=== PATIENT | male | born 1930 | race Caucasian/White ===

== ENCOUNTER 2016-11-22 20:44 | Emergency (ER) | payer BC ==
[~2016-11-22] VITALS: Ht 177.8 cm; Wt 83.5 kg
[~2016-11-22 20:44] MED LIST: ACET325T96 PO; CALCCHW17 PO; DUTA0.5C PO; LSN5 PO; LUTE20CA PO; MULTTAB PO; OMEGCAP2 PO; POTA20TA13 PO; ROPI0.25 PO; TPRSR/100 PO; ULT/50 PO; WARF5TAB90 PO; [UNRECOGNIZED DRUG - CODE] PO
[2016-11-22 20:49] VITALS: TEMP 36.9
[2016-11-22 21:12] VITALS: O2SAT 95
[2016-11-22 21:25] VITALS: Ht 177.8 cm; Wt 83.5 kg
[2016-11-22 21:41] LABS: BASO % 0.3 %; BASO ABS # 0.03 K/uL (0-0.2); COMPLETE YES; EOS % 0.5 %; HEMATOCRIT 37.6 % (42-52); IG% 0.2 %; LYMPH % 6.6 %; LYMPH ABS # 0.61 K/uL (1.2-3.4); MEAN CELL VOLUME 99.2 fL (80-100); MEAN CORPUSCULAR HGB CONC 33.2 g/dl (32-36); MEAN PLATELET VOLUME 8.2 fL (7.4-10.4); MONO % 5.9 %; NEUT % 86.5 %; PLATELET COUNT 199 K/uL (130-400); RED BLOOD COUNT 3.79 M/uL (4.7-6.1)
[2016-11-22 21:48] LABS: INR 2.4 (0.9-1.1); PARTIAL THROMBOPLASTIN RATIO 1.4; PROTHROMBIN TIME (PATIENT) 26.7 SECONDS (9.0-12.0)
[2016-11-22 21:52] LABS: VEN BLD GAS O2 SATURATION 72.6 %; VEN BLOOD GAS BASE EXCESS 4.5 mmol/L; VENOUS BLOOD GAS PCO2 42 mmHg (38.0-50.0); VENOUS BLOOD GAS PO2 39 mmHg
[2016-11-22 21:57] LABS: BUN/CREATININE RATIO 13.5 (10-20); CALCIUM 8.8 mg/dl (8.5-10.1); CREATININE 1.6 mg/dl (0.60-1.40); POTASSIUM 3.9 mmol/L (3.5-5.1)
--- NOTE | 2016-11-22 21:57 | DIAGNOSTIC IMAGING REPORT ---
CHEST ONE VIEW PORTABLE CLINICAL HISTORY: Respiratory distress. Dyspnea. COMPARISON STUDY: Chest radiograph August 31, 2015 [place] FINDINGS: A left shoulder arthroplasty is incidentally noted. Moderate cardiomegaly is unchanged. There are healed bilateral rib deformities. There is no evidence of pulmonary edema. There is no consolidation to suggest pneumonia. The appearance of the chest is unchanged. IMPRESSION: 1. No acute findings. 2. Moderate cardiomegaly. No evidence of pulmonary edema. Electronically signed by: Dave Starr M.D. 11/22/2016 9:55 PM Dictated Date/Time: 11/22/2016 9:51 PM
--- NOTE | 2016-11-22 22:05 | DIAGNOSTIC IMAGING REPORT ---
CT OF THE HEAD WITHOUT CONTRAST CLINICAL HISTORY: Head trauma. Altered mental status. COMPARISON STUDY: Head CT July 21, 2014. CT DOSE: 614.27 mGy.cm TECHNIQUE: Helical axial images of the head were obtained without IV contrast. Automated exposure control was utilized for the study. FINDINGS: There is a small hyperdense subdural hematoma along the right aspect of the tentorium. This hematoma measures approximately 1 cm in thickness. There is no significant associated mass effect. The ventricular system is stable. The basilar cisterns are patent. No additional extra-axial collections are present. White matter hypodensity suggests small vessel disease. There are no findings to suggest acute dural sinus thrombosis or acute territorial infarct. There is no calvarial fracture. IMPRESSION: 1. Small acute subdural hematoma along the right aspect of the tentorium. A follow-up head CT in approximately 24 hours is recommended. 2. No calvarial fracture. Electronically signed by: Dave Starr M.D. 11/22/2016 10:04 PM Dictated Date/Time: 11/22/2016 9:58 PM
[2016-11-22] MEDS ORDERED: PROTHROMBIN COMP KCENTRA IV STA (22:12)
[2016-11-22] MEDS ORDERED: PHYTONADIONE INJ 10 MG in SODIUM CHLORIDE 0.9% 50ML 50 ML IV SCH (22:15)
[2016-11-22] MEDS ORDERED: PHYTONADIONE INJ 10 MG in SODIUM CHLORIDE 0.9% 50ML 50 ML IV ONE (22:15)
[2016-11-22] MEDS ORDERED: POTA20TA16 PO (22:29)
[2016-11-22] MEDS ORDERED: ROPI4TAB4 PO (22:29)
[2016-11-22] MEDS ORDERED: DOXY100C2 PO (22:29)
[2016-11-22] MEDS ORDERED: LSX40 PO (22:29)
[2016-11-22] MEDS ORDERED: PROTHROMBIN COMP CONC- KCENTRA 2,000 UNIT in SYRINGE 0 ML IV SCH (22:30)
--- NOTE | 2016-11-22 22:49 | DIAGNOSTIC IMAGING REPORT ---
CT OF THE CERVICAL SPINE WITHOUT CONTRAST CLINICAL HISTORY: Fall. COMPARISON STUDY: No previous studies for comparison. TECHNIQUE: Helical axial images of the cervical spine were obtained without IV contrast. Sagittal and coronal reconstructions were viewed. FINDINGS: A small acute subdural hematoma layering along the right aspect of the tentorium is better depicted on the head CT. There is mild leftward curvature of the cervical spine. Craniocervical junction is intact. No acute fracture is identified. There is moderate multilevel degenerative disc disease and facet arthrosis of the cervical spine. There is no prevertebral edema. This study is mildly compromised by motion artifact. IMPRESSION: 1. No acute cervical spine fracture or subluxation. 2. Small acute subdural hematoma layering along the right aspect of the tentorium which is better depicted on head CT. Electronically signed by: Dave Starr M.D. 11/22/2016 10:47 PM Dictated Date/Time: 11/22/2016 10:44 PM
[2016-11-22 23:03] LABS: MANUAL MICROSCOPIC REQUIRED? YES; URINE APPEARANCE CLEAR (CLEAR); URINE COLOR YELLOW; URINE NITRITE NEG (NEG); URINE PH 5.5 (4.5-7.5); URINE SPECIFIC GRAVITY >= 1.030 (1.000-1.030); UROBILINOGEN NEG (NEG)
[2016-11-22 23:04] LABS: REVIEW REQ? NO; URINE BILIRUBIN NEG (NEG)
[2016-11-22 23:10] LABS: URINE BACTERIA NEG (NEG); URINE MUCUS PRESENT (NONE PRSENT); URINE RBC 0-4 /hpf (0-4); URINE WBC 0 /hpf (0-5)
[2016-11-22 23:17] VITALS: BP 160/88; PULSE 79; O2SAT 96
--- NOTE | 2016-11-23 00:26 | EMERGENCY ROOM VISIT NOTE ---
History Report prepared by Rafa: Ruben Barrientos Under the Supervision of: Dr. Abdulaziz Jha D.O. First contact with patient: 21:11 Chief Complaint: WEAKNESS Stated Complaint: WEAKNESS,EDEMA History of Present Illness The patient is an 86 year old male who presents to the Emergency Room with complaints of a sudden fall beginning just prior to arrival. He states he was standing and fell forward onto his knees. The patient denies hitting his head during the fall. The patient associates weakness and dizziness with today's symptoms. He notes the weakness and dizziness have been occurring for the past several days. The patient states he fell out of his bed three days ago and hit his head on dry wall. As per friend, the patient has been worsening over the past four days with dizziness and confusion. The patient notes he has a history of atrial fibrillation and CHF. He states he takes 5.5 mg Coumadin a day. Pt denies LOC, weakness or numbness in arms or legs, headache, change in vision, fevers, chest pain, shortness of breath, nausea, vomiting, diarrhea, and pain with urination.. Source of History: patient Onset: just prior to arrival Position: other (global) Quality: other (fall) Timing: other (sudden) Associated Symptoms: + weakness Note: Associated symptoms: dizziness. Review of Systems See HPI for pertinent positives & negatives. A total of 10 systems reviewed and were otherwise negative. Past Medical & Surgical Medical Problems: (1) Atrial fibrillation (2) Reflux (3) Restless leg syndrome Family History Patient reports no known family medical history. Social History Smoking Status: Never Smoker Alcohol Use: none Drug Use: none Marital Status: Housing Status: lives alone Occupation Status: retired Current/Historical Medications Scheduled Doxycycline Hyclate (Vibramycin), 1 CAP PO BID Dutasteride (Avodart), 1 CAP PO DAILY Lisinopril (Lisinopril), 1 TAB PO DAILY Metoprolol Succinate (Metoprolol Succinate ER), 100 MG PO DAILY Multivitamins/Minerals (Mvi With Minerals), 1 TAB PO DAILY Ropinirole Hydrochloride (Requip), 1 TAB PO HS Warfarin Sodium (Coumadin), 5 MG PO DAILY Scheduled PRN Acetaminophen Tab (Tylenol), 650 MG PO Q6 PRN Furosemide (Furosemide), 1 TAB PO 3XWK PRN for SWELLING Potassium Ext Rel (Klor-Con), 1 TAB PO 3XWK PRN for WHEN TAKING LASIX Tramadol Hcl (Ultram), 100 MG PO QID PRN for Pain Allergies Coded Allergies: Celecoxib (Verified Allergy, Unknown, 11/22/16) Cephalexin (Verified Adverse Reaction, Intermediate, DYSPEPSIA, 11/22/16) Esomeprazole (Verified Adverse Reaction, Intermediate, GI SYMPTOMS, ) NSAIDs (Verified Adverse Reaction, Intermediate, esaphogeal lesions, ) Naproxen (Verified Adverse Reaction, Intermediate, DYSPEPSIA, 11/22/16) Sulfamethoxazole w/Trimethoprim (Verified Adverse Reaction, Intermediate, DYSPEPSIA, 11/22/16) Cephalosporins (Verified Adverse Reaction, Mild, NAUSEA, 11/22/16) Physical Exam Vital Signs Date Time Temp Pulse Resp B/P Pulse Ox O2 Delivery O2 Flow Rate FiO2 11/22/16 23:17 79 18 160/88 96 Nasal Cannula 2.0 11/22/16 22:48 101 20 151/103 96 Nasal Cannula 2.0 11/22/16 22:28 89 25 159/86 98 Nasal Cannula 11/22/16 21:41 83 11/22/16 21:12 82 Room Air 11/22/16 21:12 95 Nasal Cannula 2.0 11/22/16 21:07 91 Room Air 11/22/16 20:49 36.9 73 16 149/81 94 Room Air Physical Exam GENERAL: sitting up in bed, disheveled, no acute distress, non-toxic HEAD: normal cephalic, atraumatic EYE EXAM: normal conjunctiva, PERRL and EOM's grossly intact OROPHARYNX: no exudate, no erythema, lips, buccal mucosa, and tongue normal and mucous membranes are moist EARS: TMs clear b/l NECK: supple, no nuchal rigidity, no adenopathy, non-tender CHEST: stable to compression anteriorly and posteriorly LUNGS: clear to auscultation. Normal chest wall mechanics HEART: no murmurs, S1 normal and S2 normal ABDOMEN: abdomen soft, non-tender, normo-active bowel sounds, no masses, no rebound or guarding. PELVIS: stable to compression anteriorly and posteriorly BACK: Back is symmetrical on inspection and there is no deformity, no midline tenderness, no CVA tenderness. UPPER EXTREMITIES: full active and passive range of motion of all joints without tenderness to palpation LOWER EXTREMITIES: Abrasion over left knee. Bilateral pitting edema tracking up to thighs. Full active and passive range of motion of all joints without tenderness to palpation NEURO EXAM: Sitting up in bed. Oriented to person, place, and year. Cranial nerves II-XII intact. No weakness of upper or lower extremities. Difficult to perform drift with right shoulder issues. Rapid alternating movement of upper extremities intact. Medical Decision & Procedures ER Provider Diagnostic Interpretation: Xray results per the radiologist and my interpretation. Other results have been interpreted by the radiologist and reviewed by me. CHEST ONE VIEW PORTABLE CLINICAL HISTORY: Respiratory distress. Dyspnea. COMPARISON STUDY: Chest radiograph August 31, 2015 [place] FINDINGS: A left shoulder arthroplasty is incidentally noted. Moderate cardiomegaly is unchanged. There are healed bilateral rib deformities. There is no evidence of pulmonary edema. There is no consolidation to suggest pneumonia. The appearance of the chest is unchanged. IMPRESSION: 1. No acute findings. 2. Moderate cardiomegaly. No evidence of pulmonary edema. Electronically signed by: Dave Starr M.D. 11/22/2016 9:[address] OF THE HEAD WITHOUT CONTRAST CLINICAL HISTORY: Head trauma. Altered mental status. COMPARISON STUDY: Head CT July 21, 2014. CT DOSE: 614.27 mGy.cm TECHNIQUE: Helical axial images of the head were obtained without IV contrast. Automated exposure control was utilized for the study. FINDINGS: There is a small hyperdense subdural hematoma along the right aspect of the tentorium. This hematoma measures approximately 1 cm in thickness. There is no significant associated mass effect. The ventricular system is stable. The basilar cisterns are patent. No additional extra-axial collections are present. White matter hypodensity suggests small vessel disease. There are no findings to suggest acute dural sinus thrombosis or acute territorial infarct. There is no calvarial fracture. IMPRESSION: 1. Small acute subdural hematoma along the right aspect of the tentorium. A follow-up head CT in approximately 24 hours is recommended. 2. No calvarial fracture. Electronically signed by: Dave Starr M.D. 11/22/2016 10:[address] OF THE CERVICAL SPINE WITHOUT CONTRAST CLINICAL HISTORY: Fall. COMPARISON STUDY: No previous studies for comparison. TECHNIQUE: Helical axial images of the cervical spine were obtained without IV contrast. Sagittal and coronal reconstructions were viewed. FINDINGS: A small acute subdural hematoma layering along the right aspect of the tentorium is better depicted on the head CT. There is mild leftward curvature of the cervical spine. Craniocervical junction is intact. No acute fracture is identified. There is moderate multilevel degenerative disc disease and facet arthrosis of the cervical spine. There is no prevertebral edema. This study is mildly compromised by motion artifact. IMPRESSION: 1. No acute cervical spine fracture or subluxation. 2. Small acute subdural hematoma layering along the right aspect of the tentorium which is better depicted on head CT. Electronically signed by: Dave Starr M.D. 11/22/2016 10:47 PM Laboratory Results 11/22/16 21:10 Red Blood Count 3.79, Mean Corpuscular Volume 99.2, Mean Corpuscular Hemoglobin 33.0, Mean Corpuscular Hemoglobin Concent 33.2, Mean Platelet Volume 8.2, Neutrophils (%) (Auto) 86.5, Lymphocytes (%) (Auto) 6.6, Monocytes (%) (Auto) 5.9, Eosinophils (%) (Auto) 0.5, Basophils (%) (Auto) 0.3, Neutrophils # (Auto) 7.95, Lymphocytes # (Auto) 0.61, Monocytes # (Auto) 0.54, Eosinophils # (Auto) 0.05, Basophils # (Auto) 0.03 11/22/16 21:10 Test 11/22/16 21:10 11/22/16 21:42 11/22/16 22:45 White Blood Count 9.20 K/uL (4.8-10.8) Red Blood Count 3.79 M/uL (4.7-6.1) Hemoglobin 12.5 g/dL (14.0-18.0) Hematocrit 37.6 % (42-52) Mean Corpuscular Volume 99.2 fL (80-100) Mean Corpuscular Hemoglobin 33.0 pg (25-34) Mean Corpuscular Hemoglobin Concent 33.2 g/dl (32-36) Platelet Count 199 K/uL (130-400) Mean Platelet Volume 8.2 fL (7.4-10.4) Neutrophils (%) (Auto) 86.5 % Lymphocytes (%) (Auto) 6.6 % Monocytes (%) (Auto) 5.9 % Eosinophils (%) (Auto) 0.5 % Basophils (%) (Auto) 0.3 % Neutrophils # (Auto) 7.95 K/uL (1.4-6.5) Lymphocytes # (Auto) 0.61 K/uL (1.2-3.4) Monocytes # (Auto) 0.54 K/uL (0.11-0.59) Eosinophils # (Auto) 0.05 K/uL (0-0.5) Basophils # (Auto) 0.03 K/uL (0-0.2) RDW Standard Deviation 55.1 fL (36.4-46.3) RDW Coefficient of Variation 15.1 % (11.5-14.5) Immature Granulocyte % (Auto) 0.2 % Immature Granulocyte # (Auto) 0.02 K/uL (0.00-0.02) Prothrombin Time 26.7 SECONDS (9.0-12.0) Prothromb Time International Ratio 2.4 (0.9-1.1) Activated Partial Thromboplast Time 35.3 SECONDS (21.0-31.0) Partial Thromboplastin Ratio 1.4 Anion Gap 11.0 mmol/L (3-11) Est Creatinine Clear Calc Drug Dose 33.6 ml/min Estimated GFR () 44.2 Estimated GFR (Non- 38.2 BUN/Creatinine Ratio 13.5 (10-20) Calcium Level 8.8 mg/dl (8.5-10.1) Total Bilirubin 1.4 mg/dl (0.2-1) Aspartate Amino Transf (AST/SGOT) 83 U/L (15-37) Alanine Aminotransferase (ALT/SGPT) 53 U/L (12-78) Alkaline Phosphatase 88 U/L (45-117) Troponin I 0.089 ng/ml (0-0.045) Pro-B-Type Natriuretic Peptide 6435 pg/ml (0-1800) Total Protein 7.2 gm/dl (6.4-8.2) Albumin 3.6 gm/dl (3.4-5.0) Globulin 3.6 gm/dl (2.5-4.0) Albumin/Globulin Ratio 1.0 (0.9-2) Venous Blood pH 7.45 (7.36-7.41) Venous Blood Partial Pressure CO2 42 mmHg (38.0-50.0) Venous Blood Partial Pressure O2 39 mmHg Venous Blood HCO3 29 meq/L Venous Blood Oxygen Saturation 72.6 % Venous Blood Base Excess 4.5 mmol/L Urine Color YELLOW Urine Appearance CLEAR (CLEAR) Urine pH 5.5 (4.5-7.5) Urine Specific [place] >= 1.030 (1.000-1.030) Urine Protein TRACE (NEG) Urine Glucose (UA) NEG (NEG) Urine Ketones TRACE (NEG) Urine Occult Blood 1+ (NEG) Urine Nitrite NEG (NEG) Urine Bilirubin NEG (NEG) Urine Urobilinogen NEG (NEG) Urine Leukocyte Esterase NEG (NEG) Urine RBC 0-4 /hpf (0-4) Urine WBC 0 /hpf (0-5) Urine Epithelial Cells 0-5 /lpf (0-5) Urine Bacteria NEG (NEG) Urine Mucus PRESENT (NONE PRSENT) Laboratory results per my review. Medications Administered Medications (Trade) Dose Ordered Sig/Nina Route Start Time Stop Time Status Last Admin Dose Admin Prothrombin Complex Concent (Human) 2000 unit/ Syringe 80 ml @ 10 mls/min TODAY@0 IV 11/22/16 22:30 11/22/16 23:00 DC 11/22/16 22:27 10 MLS/MIN Phytonadione/ Sodium Chloride (Aqua-[place]phy[place] Inj/Nss 50ml) 51 ml @ 102 mls/hr TODAY@2215 IV 11/22/16 22:15 11/22/16 22:44 DC 11/22/16 22:27 102 MLS/HR ECG Indication: weakness Rate (beats per minute): 78 Rhythm: atrial fibrillation Findings: Q waves (Septal, Inferior), left axis deviation ED Course ED COURSE: Vital signs were reviewed and showed normal vitals. The patients medical record was reviewed The above diagnostic studies were performed and reviewed. ED treatments and interventions as stated above. 2113: The patient was evaluated in room C4. A complete history and physical examination was performed. 2209: Reevaluated the patient at this time and explained the risks and benefits of reversal INR to the patient and his friend. They agree with the treatment plan. The patient preferred to be transferred to [facility]. He declines [facility] and [facility]. 2214: Ordered Phytonadione 10 mg/Sodium Chloride 51 ml @ 102 mls/hr Protocol IV. 2230: Ordered Prothrombin Complex Concent (Human) 2,000 unit/Syringe 80 ml @ 10 mls/min Protocol IV. It is noted the patient states he is a full code. 2240: I spoke to Dr. Kasper, [facility] (Trauma Surgeon) about the patient's case, and he will accept the patient for transfer. It is noted [facility] declined flight. 224: Upon reevaluation, the patient agreed to the treatment plan.I discussed my findings with the patient and he understands and agrees with the treatment plan. Based on the patients age, coexisting illnesses, exam and lab findings the decision to treat as a transfer was made. The patient remained stable while under my care. The patient appeared well at the time of discharge. The patient will be evaluated for further management at [facility]. 2307: EMS arrived and is transporting the patient to [facility]. Medical Decision Differential diagnoses include major intracranial, cervical, spinal, thoracic, abdominal, pelvic and neurologic injury. Fracture, contusion, sprain, strain, laceration, abrasions included as well. Patient is an 86-year-old male who presents the ER for falls associated with confusion. He fell on Wednesday and then fell again today. He denies hitting his head. He does take Coumadin for A. fib. Patient is a alert and oriented but difficult to obtain a complete history. CBC was unremarkable. BMP shows a creatinine 1.6. Troponin was elevated at 109. BNP was elevated. He does have diffuse pitting edema in the lower extremities. INR was elevated at 2.4. CT head and cervical spine show a subdural without shift. Discussed with pharmacy and he was given K [place] and IV vitamin K to immediately reverse his Coumadin following discussing with the patient the risk and benefits. I also discussed this with his friend at bedside who agreed as well. I then discussed with the trauma surgery at [place]. Attempted stress for via helicopter but due to weather was unsuccessful. He is transferred via ground shortly later. Patient remained stable while in the ER. Chest x-ray was unremarkable. Patient was transferred with acute subdural bleed on Coumadin with an INR 2.4 following receiving IV vitamin K and kcentra/four factor. EKG was nonischemic. I do favor this likely elevated troponin is likely from his worsening heart failure or the stress from the I[facility]. Consults Time Called: 2204 Consulting Physician: Dr. Kasper [facility] (Trauma Surgeon) Returned Call: [address] Kasper [facility] (Trauma Surgeon) about the patient's case, and he will accept the patient for transfer. Impression Primary Impression: Acute subdural hematoma Additional Impression: Supratherapeutic INR Critical Care I have personally spent 80 minutes of critical care time in the direct management of this patient. This includes bedside care, interpretation of diagnostic studies, and testing, discussion with consultants, patient, and family members, and other required patient management activities. This 80 minutes is in excess of all separately billable procedures. Scribe Attestation The scribe's documentation has been prepared under my direction and personally reviewed by me in its entirety. I confirm that the note above accurately reflects all work, treatment, procedures, and medical decision making performed by me. Departure Information Dispostion Transfer Acute Care Facility (Dr. Kasper [facility] (Trauma Surgeon)) Referrals Giuseppe Santamaria M.D. (PCP) Problem Qualifiers
[2017-03-09] MEDS ORDERED: LEVE250T PO (09:52)
== END 2016-11-22 23:21 | disposition short-term general hospital (02) ==
LOC: C.EDB 20:46 → C.EDC 23:21
DX: S06.5X0A Traumatic subdural hemorrhage without loss of consciousness, initial encounter (principal); R79.1 Abnormal coagulation profile; W19.XXXA Unspecified fall, initial encounter; I48.91 Unspecified atrial fibrillation; K21.9 Gastro-esophageal reflux disease without esophagitis; Z79.01 Long term (current) use of anticoagulants

== ENCOUNTER → 2016-12-28 | Outpatient (CLI) | payer BC ==
[~2016-12-28] MED LIST changes: -CALCCHW17 PO; +DOXY100C2 PO; +LEVE250T PO; +LSX40 PO; -LUTE20CA PO; -OMEGCAP2 PO; -POTA20TA13 PO; +POTA20TA16 PO; -ROPI0.25 PO; +ROPI4TAB4 PO; -[UNRECOGNIZED DRUG - CODE] PO
[2016-12-28 09:16] LABS: PROTHROMBIN TIME (PATIENT) 10.7 SECONDS (9.0-12.0)
== END ==
LOC: C.LABFOXAC 07:53
PROVIDERS: ATTEND Internal Medicine
DX: I48.0 Paroxysmal atrial fibrillation (principal)

== ENCOUNTER → 2016-12-31 | Outpatient (CLI) | payer BC ==
[2016-12-31 09:00] LABS: INR 1.3 (0.9-1.1); PROTHROMBIN TIME (PATIENT) 13.9 SECONDS (9.0-12.0)
== END ==
LOC: C.LABFOXAC 08:40
PROVIDERS: ATTEND Internal Medicine
DX: I48.0 Paroxysmal atrial fibrillation (principal)

== ENCOUNTER → 2017-01-07 | Outpatient (CLI) | payer BC ==
[2017-01-07 10:35] LABS: INR 3.2 (0.9-1.1); PROTHROMBIN TIME (PATIENT) 36.1 SECONDS (9.0-12.0)
== END ==
LOC: C.LABFOXAC 08:41
PROVIDERS: ATTEND Internal Medicine
DX: I48.0 Paroxysmal atrial fibrillation (principal)

== ENCOUNTER → 2017-01-11 | Outpatient (CLI) | payer BC ==
[2017-01-11 08:38] LABS: PROTHROMBIN TIME (PATIENT) 21.8 SECONDS (9.0-12.0)
== END ==
LOC: C.LABFOXAC 08:05
PROVIDERS: ATTEND Nurse Practitioner Family
DX: I48.0 Paroxysmal atrial fibrillation (principal)

== ENCOUNTER → 2017-01-13 | Outpatient (CLI) | payer BC ==
[2017-01-13 09:33] LABS: INR 1.8 (0.9-1.1); PROTHROMBIN TIME (PATIENT) 19.3 SECONDS (9.0-12.0)
== END | disposition home or self-care (01) ==
LOC: C.LABFOXDH 08:42
PROVIDERS: ATTEND Internal Medicine
DX: I48.91 Unspecified atrial fibrillation (principal)

== ENCOUNTER → 2017-01-20 | Outpatient (CLI) | payer BC ==
[2017-01-20 09:37] LABS: PROTHROMBIN TIME (PATIENT) 21.8 SECONDS (9.0-12.0)
== END | disposition home or self-care (01) ==
LOC: C.LABFOXDH 09:09
PROVIDERS: ATTEND Internal Medicine
DX: I48.91 Unspecified atrial fibrillation (principal)

== ENCOUNTER → 2017-02-03 | Outpatient (CLI) | payer BC ==
[2017-02-03 10:15] LABS: PROTHROMBIN TIME (PATIENT) 22.4 SECONDS (9.0-12.0)
== END | disposition home or self-care (01) ==
LOC: C.LABFOXDH 08:53
PROVIDERS: ATTEND Nurse Practitioner Family
DX: I48.91 Unspecified atrial fibrillation (principal)

== ENCOUNTER → 2017-02-17 | Outpatient (CLI) | payer BC ==
[2017-02-17 09:39] LABS: INR 2.3 (0.9-1.1); PROTHROMBIN TIME (PATIENT) 25.4 SECONDS (9.0-12.0)
== END | disposition home or self-care (01) ==
LOC: C.LABFOXDH 09:21
PROVIDERS: ATTEND Internal Medicine
DX: I48.91 Unspecified atrial fibrillation (principal)

== ENCOUNTER → 2017-03-10 | Outpatient (CLI) | payer BC ==
[~2017-03-10] MED LIST changes: -DUTA0.5C PO; -LEVE250T PO; -LSX40 PO; -ROPI4TAB4 PO
--- NOTE | 2017-03-10 11:55 | DIAGNOSTIC IMAGING REPORT ---
CT LUMBAR SPINE WITHOUT CT DOSE: 944.35 mGy.cm CLINICAL HISTORY: Lumbar spine pain. TECHNIQUE: Axial images of the lumbar spine were obtained without IV contrast. Sagittal and coronal reconstructions were viewed COMPARISON STUDY: Lumbar spine radiographs April 21, 2013. FINDINGS: For purposes of numbering on this exam, the L5-S1 disc space is assigned to axial image 303 of 356. Alignment of lumbar spine is anatomic. There is a moderate to severe L3 compression fracture with 60% loss of vertebral body height. This is new since exam of April 21, 2013. There is also a moderate compression fracture of the superior endplate of L2 with 50% loss of vertebral body height centrally. Vertebral body height loss has slightly increased since prior exam. A bilobed abdominal aortic aneurysm is partially imaged on this exam. Allowing for differences in technique, this is likely only minimally increased in size since ultrasound of November 25, 2015. The largest component measures 4.7 cm. Is minimal prevertebral infiltration at the L2-L3 level. The central canal and neural foramen are suboptimally assessed by CT technique. Discussed by complex at the L2-L3 level is noted as well as facet arthrosis and ligamentous hypertrophy. There is at least moderate central canal stenosis at this level. IMPRESSION: 1. Old L2 compression fracture with interval increase in vertebral body height loss since exam of April 21, 2013. Interval development of a moderate L3 compression fracture which is age-indeterminate but likely subacute to chronic. 2. Disc osteophyte complex at the L2-L3 level with ligamentous hypertrophy and facet arthrosis. Central canal is suboptimally assessed by CT technique but at least moderate central canal stenosis at this level. 3. At most minimal increase in size of a bilobed infrarenal abdominal aortic aneurysm that measures up to 4.7 cm, since ultrasound of November 25, 2015. Electronically signed by: Dave Starr M.D. 03/10/2017 11:54 AM Dictated Date/Time: 03/10/2017 11:40 AM
== END | disposition home or self-care (01) ==
LOC: C.CTS 10:32
PROVIDERS: ATTEND Internal Medicine
DX: M54.5 Low back pain (principal); M25.78 Osteophyte, vertebrae; M48.56XD Collapsed vertebra, not elsewhere classified, lumbar region, subsequent encounter for fracture with routine healing; I48.91 Unspecified atrial fibrillation

== ENCOUNTER → 2017-03-10 | Outpatient (CLI) | payer BC ==
[2017-03-10 09:15] LABS: INR 1.7 (0.9-1.1)
== END ==
LOC: C.LABFOXDH 08:32
PROVIDERS: ATTEND Internal Medicine
DX: I48.91 Unspecified atrial fibrillation (principal)

== ENCOUNTER → 2017-03-17 | Outpatient (CLI) | payer BC ==
[2017-03-17 08:41] LABS: INR 1.7 (0.9-1.1); PROTHROMBIN TIME (PATIENT) 18.7 SECONDS (9.0-12.0)
== END | disposition home or self-care (01) ==
LOC: C.LABFOXDH 08:03
PROVIDERS: ATTEND Internal Medicine
DX: I48.91 Unspecified atrial fibrillation (principal)

== ENCOUNTER → 2017-03-24 | Outpatient (CLI) | payer BC ==
[2017-03-24 10:28] LABS: INR 2.1 (0.9-1.1); PROTHROMBIN TIME (PATIENT) 23.7 SECONDS (9.0-12.0)
== END | disposition home or self-care (01) ==
LOC: C.LABFOXDH 08:58
PROVIDERS: ATTEND Internal Medicine
DX: I48.91 Unspecified atrial fibrillation (principal)

== ENCOUNTER → 2017-03-31 | Outpatient (CLI) | payer BC ==
[2017-03-31 10:00] LABS: INR 2.6 (0.9-1.1); PROTHROMBIN TIME (PATIENT) 29.2 SECONDS (9.0-12.0)
== END | disposition home or self-care (01) ==
LOC: C.LABFOXDH 09:00
PROVIDERS: ATTEND Internal Medicine
DX: I48.91 Unspecified atrial fibrillation (principal)

== ENCOUNTER → 2017-04-06 | Outpatient (CLI) | payer BC | END | disposition home or self-care (01) | LOC: C.MAMM 13:44 | PROVIDERS: ATTEND Internal Medicine | DX: M85.80 Other specified disorders of bone density and structure, unspecified site (principal) ==

== ENCOUNTER → 2017-04-07 | Outpatient (CLI) | payer BC ==
[2017-04-07 11:01] LABS: BLOOD UREA NITROGEN 25 mg/dl (7-18); BUN/CREATININE RATIO 19.1 (10-20); CALCIUM 8.6 mg/dl (8.5-10.1); CARBON DIOXIDE 29 mmol/L (21-32); CHLORIDE 108 mmol/L (98-107); GLUCOSE 87 mg/dl (70-99); POTASSIUM 4.7 mmol/L (3.5-5.1); SODIUM 141 mmol/L (136-145)
== END | disposition home or self-care (01) ==
LOC: C.LABFOXDH 09:13
PROVIDERS: ATTEND Nurse Practitioner Family
DX: I48.91 Unspecified atrial fibrillation (principal)

== ENCOUNTER → 2017-04-14 | Outpatient (CLI) | payer BC ==
[~2017-04-14] MED LIST changes: -DOXY100C2 PO
[2017-04-14 09:52] LABS: INR 2.8 (0.9-1.1); PROTHROMBIN TIME (PATIENT) 30.8 SECONDS (9.0-12.0)
== END | disposition home or self-care (01) ==
LOC: C.LABFOXMH 05:11
PROVIDERS: ATTEND Urology
DX: I48.91 Unspecified atrial fibrillation (principal)

== ENCOUNTER → 2017-04-26 | Outpatient (CLI) | payer BC ==
--- NOTE | 2017-05-12 09:00 | CODING QUERY MEDICAL NECESSITY ---
SUPPORTING DIAGNOSIS NEEDED Dr. Byrd, A supporting diagnosis is required for the test/procedure performed on this patient in order for us to be reimbursed by the patient's insurance. Please provide a supporting diagnosis for the following test/procedure listed below next to the test name along with your signature. *If there is no additional diagnosis for this patient that would support the following test/procedure please document that below next to the test/procedure. Test(s)/Procedure(s) that require a supporting diagnosis: * ([id number]) B12 VITAMIN LEVEL DIAGNOSIS: DATE OF SERVICE: 04/26/17 Provider Signature: Date: Thank you Herbie Wheatley [facility] Information Management Once completed, please kindly fax back to [phone] For questions please call [phone]
== END | disposition home or self-care (01) ==
LOC: C.LABFOXDH 09:18
PROVIDERS: ATTEND Internal Medicine
DX: G62.9 Polyneuropathy, unspecified (principal); R53.83 Other fatigue

== ENCOUNTER → 2017-04-28 | Outpatient (CLI) | payer BC ==
[2017-04-28 09:05] LABS: INR 1.3 (0.9-1.1); PROTHROMBIN TIME (PATIENT) 13.5 SECONDS (9.0-12.0)
== END | disposition home or self-care (01) ==
LOC: C.LABFOXDH 08:32
PROVIDERS: ATTEND Internal Medicine
DX: I48.91 Unspecified atrial fibrillation (principal)

== ENCOUNTER → 2017-05-05 | Outpatient (CLI) | payer BC ==
[2017-05-05 09:50] LABS: INR 1.8 (0.9-1.1); PROTHROMBIN TIME (PATIENT) 19.4 SECONDS (9.0-12.0)
== END | disposition home or self-care (01) ==
LOC: C.LABFOXDH 08:57
PROVIDERS: ATTEND Nurse Practitioner Family
DX: I48.91 Unspecified atrial fibrillation (principal)

== ENCOUNTER → 2017-05-12 | Outpatient (CLI) | payer BC ==
[2017-05-12 08:58] LABS: INR 2.9 (0.9-1.1); PROTHROMBIN TIME (PATIENT) 32.4 SECONDS (9.0-12.0)
== END | disposition home or self-care (01) ==
LOC: C.LABFOXDH 08:23
PROVIDERS: ATTEND Internal Medicine
DX: I48.2 Chronic atrial fibrillation (principal)

== ENCOUNTER → 2017-05-26 | Outpatient (CLI) | payer BC ==
[2017-05-26 08:37] LABS: INR 1.2 (0.9-1.1); PROTHROMBIN TIME (PATIENT) 12.8 SECONDS (9.0-12.0)
== END | disposition home or self-care (01) ==
LOC: C.LABFOXDH 08:14
PROVIDERS: ATTEND Anesthesiology
DX: I48.91 Unspecified atrial fibrillation (principal)

== ENCOUNTER → 2017-06-07 | Outpatient (CLI) | payer BC ==
[2017-06-07 08:40] LABS: INR 2.1 (0.9-1.1); PROTHROMBIN TIME (PATIENT) 23.1 SECONDS (9.0-12.0)
== END | disposition home or self-care (01) ==
LOC: C.LABFOXDH 08:21
PROVIDERS: ATTEND Nurse Practitioner Family
DX: I48.2 Chronic atrial fibrillation (principal)

== ENCOUNTER → 2017-06-17 | Outpatient (CLI) | payer BC ==
[2017-06-17 09:58] LABS: HEMATOCRIT 42.2 % (42-52); MEAN CELL VOLUME 99.1 fL (80-100); MEAN CORPUSCULAR HEMOGLOBIN 31.2 pg (25-34); MEAN CORPUSCULAR HGB CONC 31.5 g/dl (32-36); PLATELET COUNT 207 K/uL (130-400); RED BLOOD COUNT 4.26 M/uL (4.7-6.1); WHITE BLOOD COUNT 9.68 K/uL (4.8-10.8)
[2017-06-17 10:21] LABS: BLOOD UREA NITROGEN 28 mg/dl (7-18); BUN/CREATININE RATIO 20.3 (10-20); CALCIUM 8.9 mg/dl (8.5-10.1); CARBON DIOXIDE 28 mmol/L (21-32); CHLORIDE 106 mmol/L (98-107); GLUCOSE 94 mg/dl (70-99); MAGNESIUM 2.2 mg/dl (1.8-2.4); POTASSIUM 5.1 mmol/L (3.5-5.1); SODIUM 138 mmol/L (136-145)
== END | disposition home or self-care (01) ==
LOC: C.LABFOXDH 09:38
PROVIDERS: ATTEND Internal Medicine
DX: G25.81 Restless legs syndrome (principal)

== ENCOUNTER → 2017-06-21 | Outpatient (CLI) | payer BC ==
[2017-06-21 09:05] LABS: PROTHROMBIN TIME (PATIENT) 41.6 SECONDS (9.0-12.0)
[2017-06-21 09:07] LABS: INR 3.7 (0.9-1.1)
== END | disposition home or self-care (01) ==
LOC: C.LABFOXDH 08:33
PROVIDERS: ATTEND Internal Medicine
DX: I48.91 Unspecified atrial fibrillation (principal)

== ENCOUNTER → 2017-07-02 | Outpatient (CLI) | payer BC ==
--- NOTE | 2017-07-02 12:07 | DIAGNOSTIC IMAGING REPORT ---
AORTIC ANEURYSM RETROPERINEAL CLINICAL HISTORY: I71.4 Aneurysm of abdominal [id number] COMPARISON STUDY: 11/25/2015 FINDINGS: The proximal aorta measures 22 x 22 mm. The mid aorta measures 33 x 32 mm. The distal aorta measures 45 x 40 mm. The right iliac artery measures 14 mm. The left iliac artery measures 14 mm. 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 The maximal aortic diameter is 4.5 cm. This remains unchanged from the prior November 2015 study Electronically signed by: Dalton Barcenas M.D. 07/02/2017 12:06 PM Dictated Date/Time: 07/02/2017 12:00 PM
== END | disposition home or self-care (01) ==
LOC: C.ULTRBC 11:12
PROVIDERS: ATTEND Internal Medicine
DX: I71.4 Abdominal aortic aneurysm, without rupture (principal)

== ENCOUNTER → 2017-07-05 | Outpatient (CLI) | payer BC ==
[2017-07-05 12:40] LABS: PROTHROMBIN TIME (PATIENT) 42.5 SECONDS (9.0-12.0)
[2017-07-05 12:51] LABS: INR 3.8 (0.9-1.1)
[2017-07-05 12:56] LABS: ALT/SGPT 25 U/L (12-78); BLOOD UREA NITROGEN 22 mg/dl (7-18); BUN/CREATININE RATIO 16.6 (10-20); CARBON DIOXIDE 28 mmol/L (21-32); CHLORIDE 102 mmol/L (98-107); GLUCOSE 84 mg/dl (70-99); POTASSIUM 4.4 mmol/L (3.5-5.1); SODIUM 139 mmol/L (136-145)
[2017-07-05 13:07] LABS: ALB/GLOB RATIO 0.8 (0.9-2); ALKALINE PHOSPHATASE 82 U/L (45-117); AST/SGOT 23 U/L (15-37)
== END | disposition home or self-care (01) ==
LOC: C.LABFOXDH 12:39
PROVIDERS: ATTEND Internal Medicine
DX: I48.91 Unspecified atrial fibrillation (principal); R53.83 Other fatigue

== ENCOUNTER → 2017-07-19 | Outpatient (CLI) | payer BC ==
[2017-07-19 08:59] LABS: INR 2.8 (0.9-1.1); PROTHROMBIN TIME (PATIENT) 31.8 SECONDS (9.0-12.0)
== END | disposition home or self-care (01) ==
LOC: C.LABFOXDH 08:29
PROVIDERS: ATTEND Internal Medicine
DX: I48.2 Chronic atrial fibrillation (principal)

== ENCOUNTER → 2017-08-02 | Outpatient (CLI) | payer BC ==
[2017-08-02 09:16] LABS: PROTHROMBIN TIME (PATIENT) 45.2 SECONDS (9.0-12.0)
== END | disposition home or self-care (01) ==
LOC: C.LABFOXDH 08:22
PROVIDERS: ATTEND Internal Medicine
DX: Z79.01 Long term (current) use of anticoagulants (principal); I48.91 Unspecified atrial fibrillation

== ENCOUNTER → 2017-08-06 | Outpatient (CLI) | payer BC ==
[2017-08-06 08:55] LABS: BLOOD UREA NITROGEN 21 mg/dl (7-18); BUN/CREATININE RATIO 16.6 (10-20); CALCIUM 8.4 mg/dl (8.5-10.1); CARBON DIOXIDE 28 mmol/L (21-32); CHLORIDE 106 mmol/L (98-107); CREATININE 1.25 mg/dl (0.60-1.40); GLUCOSE 86 mg/dl (70-99); POTASSIUM 4.2 mmol/L (3.5-5.1); SODIUM 140 mmol/L (136-145)
--- NOTE | 2017-08-27 11:24 | CODING QUERY MEDICAL NECESSITY ---
TREATMENT RENDERED WITHOUT A DIAGNOSIS To promote full compliance with coding requirements relating to patient care, physician participation is requested in all cases of medical biller/coder uncertainty. Please assist us with providing a diagnosis/symptom for the test(s) below: A diagnosis/symptom was not documented on your Order. A valid diagnosis/symptom is required to bill all insurances. Please remember that we are unable to code a diagnosis of rule out, probable, possible, questionable, or suspected. Tests that require a diagnosis: * PARTIAL RENAL PROFILE DIAGNOSIS: Provider Signature: Date: Thank you Hellen Matute [facility] Information Management Once completed, please kindly fax back to [phone] For questions please call [phone]
== END | disposition home or self-care (01) ==
LOC: C.LABFOXDH 08:19
PROVIDERS: ATTEND Nurse Practitioner Family
DX: I10 Essential (primary) hypertension (principal)

== ENCOUNTER → 2017-08-26 | Outpatient (CLI) | payer BC ==
[2017-08-26 09:11] LABS: INR 2.9 (0.9-1.1); PROTHROMBIN TIME (PATIENT) 32.8 SECONDS (9.0-12.0)
== END | disposition home or self-care (01) ==
LOC: C.LABFOXDH 08:05
PROVIDERS: ATTEND Internal Medicine
DX: I48.2 Chronic atrial fibrillation (principal)

== ENCOUNTER → 2017-09-07 | Outpatient (CLI) | payer BC ==
[2017-09-07 10:11] LABS: INR 2.3 (0.9-1.1); PROTHROMBIN TIME (PATIENT) 25.8 SECONDS (9.0-12.0)
== END | disposition home or self-care (01) ==
LOC: C.LABFOXMH 09:22
PROVIDERS: ATTEND Internal Medicine
DX: Z79.01 Long term (current) use of anticoagulants (principal); Z51.81 Encounter for therapeutic drug level monitoring

== ENCOUNTER → 2017-09-14 | Outpatient (CLI) | payer BC ==
[2017-09-14 10:14] LABS: INR 1.7 (0.9-1.1); PROTHROMBIN TIME (PATIENT) 17.2 SECONDS (9.0-12.0)
== END | disposition home or self-care (01) ==
LOC: C.LABFOXMH 09:12
PROVIDERS: ATTEND Internal Medicine
DX: Z51.81 Encounter for therapeutic drug level monitoring (principal); Z79.01 Long term (current) use of anticoagulants

== ENCOUNTER → 2017-09-28 | Outpatient (CLI) | payer BC ==
[2017-09-28 10:11] LABS: INR 1.9 (0.9-1.1); PROTHROMBIN TIME (PATIENT) 19.6 SECONDS (9.0-12.0)
== END | disposition home or self-care (01) ==
LOC: C.LABFOXMH 09:24
PROVIDERS: ATTEND Internal Medicine
DX: Z51.81 Encounter for therapeutic drug level monitoring (principal); Z79.01 Long term (current) use of anticoagulants

== ENCOUNTER → 2017-10-19 | Outpatient (CLI) | payer BC ==
[2017-10-19 10:13] LABS: INR 2.2 (0.9-1.1)
== END | disposition home or self-care (01) ==
LOC: C.LABFOXMH 09:03
PROVIDERS: ATTEND Internal Medicine
DX: Z51.81 Encounter for therapeutic drug level monitoring (principal); Z79.01 Long term (current) use of anticoagulants

== ENCOUNTER → 2017-11-09 | Outpatient (CLI) | payer BC ==
[2017-11-09 09:52] LABS: INR 1.9 (0.9-1.1)
== END | disposition home or self-care (01) ==
LOC: C.LABFOXMH 09:08
PROVIDERS: ATTEND Internal Medicine
DX: Z79.01 Long term (current) use of anticoagulants (principal); Z51.81 Encounter for therapeutic drug level monitoring

== ENCOUNTER 2017-11-18 17:22 | Observation (INO) | payer BC ==
[~2017-11-18] VITALS: Ht 175.3 cm; Wt 78.5 kg
[~2017-11-18 17:22] MED LIST changes: +ACET-1693 PO; -ACET325T96 PO
[2017-11-18] MEDS ORDERED: SODIUM CHLORIDE 0.9% 1000ML 1,000 ML IV SCH (17:35)
--- NOTE | 2017-11-18 17:43 | EMERGENCY ROOM VISIT NOTE ---
History Report prepared by Rafa: Price Huang Under the Supervision of: Dr. Mirza Stovall D.O. First contact with patient: 17:32 Chief Complaint: STROKE SYMPTOMS Stated Complaint: STROKE SYMPTOMS History of Present Illness The patient is a 87 year old male who presents to the Emergency Room with complaints of resolved slurred speech that started an hour ago. The patient states that he felt more fatigued than usual today, especially in his lower extremities. He reports that he also started to experience right ankle soreness , which he reports is currently resolved. The patient states that he started to slur his speech an hour ago. The patient states that he called his nurse and physician who sent him to the ED via a [employer] van. He reports that his symptoms are almost completely resolved, except for his lower extremities which are still fatigued. The patient states that his symptoms are similar to his TIA four years ago. He denies headaches, nausea, vomiting, and carotid issues. The patient reports a history of TIA, CHF, and atrial fibrillation. Source of History: patient Onset: an hour ago Position: other (gloabl) Quality: other (global) Timing: resolved Associated Symptoms: + fatigue, No headache, No nausea, No vomiting Review of Systems See HPI for pertinent positives & negatives. A total of 10 systems reviewed and were otherwise negative. Past Medical & Surgical Medical Problems: (1) Atrial fibrillation (2) Reflux (3) Restless leg syndrome Family History Patient reports no known family medical history. Social History Smoking Status: Never Smoker Alcohol Use: none Drug Use: none Marital Status: Housing Status: lives alone Occupation Status: retired Current/Historical Medications Scheduled Acetaminophen Tab (Tylenol), 650 MG PO TID Atorvastatin (Lipitor), 10 MG PO QAM Cholecalciferol (Vitamin D3), 1 CAP PO QAM Clopidogrel Bisulfate (Clopidogrel), 75 MG PO Q2D Dutasteride (Dutasteride), 0.5 MG PO HS Furosemide (Furosemide), 20 MG PO QAM Lisinopril (Prinivil), 5 MG PO QAM Melatonin (Kp Melatonin), 1 TAB PO HS Metoprolol Tartrate (Lopressor), 25 MG PO BID Potassium Chloride (Potassium Chloride Er), 10 MEQ PO QAM Senna (Senokot), 1 TAB PO BID Sertraline HCl (Sertraline HCl), 25 MG PO QAM Tramadol HCl (Tramadol HCl), 50 MG PO Q8H Warfarin Sod (Coumadin), 5 MG PO QPM Allergies Coded Allergies: Celecoxib (Verified Allergy, Unknown, 11/22/16) Cephalexin (Verified Adverse Reaction, Intermediate, DYSPEPSIA, 11/22/16) Esomeprazole (Verified Adverse Reaction, Intermediate, GI SYMPTOMS, ) NSAIDs (Verified Adverse Reaction, Intermediate, esaphogeal lesions, ) Naproxen (Verified Adverse Reaction, Intermediate, DYSPEPSIA, 11/22/16) Sulfamethoxazole w/Trimethoprim (Verified Adverse Reaction, Intermediate, DYSPEPSIA, 11/22/16) Cephalosporins (Verified Adverse Reaction, Mild, NAUSEA, 11/22/16) Physical Exam Vital Signs Date Time Temp Pulse Resp B/P (MAP) Pulse Ox O2 Delivery O2 Flow Rate FiO2 11/18/17 20:27 87 18 178/97 95 Room Air 11/18/17 19:57 87 22 182/108 94 Room Air 11/18/17 19:22 88 20 170/109 95 11/18/17 18:53 75 18 167/75 94 Room Air 11/18/17 18:52 81 19 180/106 92 11/18/17 18:04 82 16 168/107 95 Room Air 11/18/17 17:51 81 20 177/100 96 Room Air 11/18/17 17:40 89 11/18/17 17:35 95 Room Air 11/18/17 17:26 36.9 86 17 178/93 95 Room Air Physical Exam GENERAL: Patient is awake, alert, and in no acute distress. Patient is resting comfortably and showing no signs of anxiety EYES: The conjunctivae are clear. The pupils are round and reactive. EARS, NOSE, MOUTH AND THROAT: The nose is without any evidence of any deformity. Mucous membranes are moist tongue is midline NECK: The neck is nontender and supple. RESPIRATORY: Normal respiratory effort is noted there is no evidence of wheezing rhonchi or rales CARDIOVASCULAR: Ectopy noted to auscultation. No definite murmur. GASTROINTESTINAL: The abdomen is soft. Bowel sounds are present in all quadrants. Abdomen is nontender MUSCULOSKELETAL/EXTREMITIES: There is no evidence of gross deformity full range of motion is noted in the hips and shoulders SKIN: Pedal edema bilaterally. NEUROLOGIC: Speech is clear Patient is awake alert and oriented to situation. Strength is symmetric. No drift in lower extremities. Medical Decision & Procedures ER Provider Diagnostic Interpretation: Radiology results as stated below per my review and radiologist interpretation: CT SCAN OF THE BRAIN WITHOUT IV CONTRAST CLINICAL HISTORY: Strokelike symptoms. COMPARISON STUDY: CT of the brain dated 11/22/2016. TECHNIQUE: Unenhanced axial CT scan of the brain is performed from the vertex to the skull base. A dose lowering technique was utilized adhering to the principles of ALARA. CT DOSE: 614.27 mGy.cm FINDINGS: Brain parenchyma: There are age-related involutional changes noting moderate patchy subcortical and periventricular microangiopathic change. There is no hemorrhage, mass effect, or evidence of acute territorial ischemia by CT criteria. Han-white matter is preserved. No extra-axial fluid collection is seen. Ventricles, sulci, cisterns: Prominent secondary to involutional change. Intracranial vasculature: There is atherosclerotic calcification of the cavernous carotid and vertebral arteries. Calvarium: Unremarkable. Sinuses and mastoids: The visualized paranasal sinuses are clear. The mastoid air cells are well pneumatized. Orbits: The bony orbits are grossly intact. There are bilateral ocular lens implants. IMPRESSION: There is no hemorrhage, mass effect, or evidence of acute territorial ischemia by CT criteria. Electronically signed by: Chacorta Wagner M.D. 11/18/2017 5:53 PM Dictated Date/Time: 11/18/2017 5:50 PM SINGLE VIEW CHEST CLINICAL HISTORY: Strokelike symptoms. FINDINGS: An AP, portable, upright chest radiograph is compared to study dated 11/22/2016. The examination is degraded by portable technique and patient rotation. The heart is markedly enlarged and there is atherosclerotic calcification of the thoracic aorta. The pulmonary vasculature is noncongested. Chronic interstitial thickening similar to previous. There is left basilar atelectasis. No airspace consolidation or large pleural effusion is identified. No pneumothorax is seen. The skeletal structures are osteopenic. The bony thorax is grossly intact. A left shoulder arthroplasty is in place. IMPRESSION: Cardiomegaly with no acute cardiopulmonary abnormality. Electronically signed by: Chacorta Wagner M.D. 11/18/2017 5:50 PM Dictated Date/Time: 11/18/2017 5:49 PM Laboratory Results Test 11/18/17 17:39 11/18/17 17:40 2/8/18 18:15 Bedside Prothrombin Time INR 2.3 (0.9-1.1) Bedside Glucose 93 mg/dl (70-99) Activated Partial Thromboplast Time 34.1 SECONDS (21.0-31.0) Partial Thromboplastin Ratio 1.3 Magnesium Level 2.3 mg/dl (1.8-2.4) Total Creatine Kinase 178 U/L (39-308) Creatine Kinase MB 3.9 ng/ml (0.5-3.6) Creatine Kinase MB Ratio 2.2 (0-3.0) Troponin I 0.039 ng/ml (0-0.045) Urine Color YELLOW Urine Appearance CLEAR (CLEAR) Urine pH 5.0 (4.5-7.5) Urine Specific [place] 1.015 (1.000-1.030) Urine Protein NEG (NEG) Urine Glucose (UA) NEG (NEG) Urine Ketones NEG (NEG) Urine Occult Blood NEG (NEG) Urine Nitrite NEG (NEG) Urine Bilirubin NEG (NEG) Urine Urobilinogen NEG (NEG) Urine Leukocyte Esterase NEG (NEG) Laboratory results per my review. Medications Administered Medications (Trade) Dose Ordered Sig/Nina Route Start Time Stop Time Status Last Admin Dose Admin Sodium Chloride 1,000 ml @ 50 mls/hr Q20H IV 11/18/17 17:35 11/18/17 22:15 DC 11/18/17 18:00 50 MLS/HR Tramadol HCl (Ultram Tab) 50 mg Q8H PO 11/18/17 20:45 11/19/17 16:16 DC 11/19/17 12:36 50 MG Aspirin (Aspirin Chew) 81 mg 2041 ONCE PO 11/18/17 20:42 11/18/17 21:15 DC 11/18/17 23:56 81 MG ECG Indication: weakness Rate (beats per minute): 79 Rhythm: atrial fibrillation Findings: other (no PVCs, PRWP, No acute ST segments) Comparison ECG Date: 11/22/16 Change: no significant change Change: Patient's EKG was interpreted by me. ED Course 1728: The patient was evaluated in room A01. A complete history and physical examination were performed. 1734: Ordered Sodium Chloride 1000 ml @ 50 mls/hr IV. 1927: I reevaluated the patient and updated him on his results. He understands and agrees to the treatment plan. The patient will be further evaluated. 1947: I discussed the patients case with Dr. Valencia [facility] Hospitalist. He understands the patients condition and agrees to accept the patient. The patient will be further evaluated. Medical Decision Prior records/ancillary studies reviewed and summarized above. Nursing notes reviewed. The patient's history was concerning for Differential diagnosis: Etiologies such as metabolic, infection, hypo/hyperglycemia, electrolyte abnormalities, cardiac sources, intracerebral event, toxicologic, neurologic, as well as others were entertained. The patient is an 87-year-old male who presented to the emergency department from his personal nursing home for strokelike symptoms. The patient was having what he describes as TIA symptoms which seem to have resolved. The patient has a history of stroke in the past. He currently has a history of atrial fibrillation. I discussed patient's laboratory and radiographic studies with him. I also reviewed the patient's previous medical records. It appears that the patient may require further workup so I discussed his case with the on-call hospitalist. They have agreed to evaluate the patient in the emergency department for further management and disposition. Medication Reconcilliation Current Medication List: was personally reviewed by me Blood Pressure Screening Patient's blood pressure: Elevated blood pressure Blood pressure disposition: Elevated BP felt to be situational Consults Time Called: 1907 Consulting Physician: Dr. Valencia [facility] Hospitalist Returned Call: 1947 I discussed the patients case with Dr. Valencia [facility] Hospitalist. He understands the patients condition and agrees to accept the patient. The patient will be further evaluated. Impression Primary Impression: TIA (transient ischemic attack) Scribe Attestation The scribe's documentation has been prepared under my direction and personally reviewed by me in its entirety. I confirm that the note above accurately reflects all work, treatment, procedures, and medical decision making performed by me. Departure Information Dispostion Being Evaluated By Hospitalist Prescriptions Warfarin Sod (Coumadin) 5 Mg Tab 5 MG PO QPM for 30 Days, #30 TAB 0 Refills Prov: Bárbara Leach MD 11/19/17 Atorvastatin (LIPITOR) 10 Mg Tab 10 MG PO QAM for 30 Days, #30 TAB 0 Refills Prov: Bárbara Leach MD 11/19/17 Clopidogrel Bisulfate (Clopidogrel) 75 Mg Tab 75 MG PO Q2D for 30 Days, #15 TAB 0 Refills First dose to start 11/20/17 Prov: Bárbara Leach MD 11/19/17 Referrals Jen Mendoza (PCP) Patient Instructions My [facility] Problem Qualifiers Primary Impression: TIA (transient ischemic attack) Transient cerebral ischemia type: unspecified Qualified Codes: G45.9 - Transient cerebral ischemic attack, unspecified
[2017-11-18 17:50] LABS: BASO % 0.5 %; BASO ABS # 0.03 K/uL (0-0.2); EOS % 1.4 %; EOS ABS # 0.09 K/uL (0-0.5); HEMOGLOBIN 13.6 g/dL (14.0-18.0); IG# 0.01 K/uL (0.00-0.02); LYMPH % 23.2 %; LYMPH ABS # 1.53 K/uL (1.2-3.4); MEAN CELL VOLUME 95.8 fL (80-100); MEAN CORPUSCULAR HEMOGLOBIN 31.8 pg (25-34); MEAN CORPUSCULAR HGB CONC 33.2 g/dl (32-36); MEAN PLATELET VOLUME 8.5 fL (7.4-10.4); MONO ABS # 0.46 K/uL (0.11-0.59); NEUT % 67.7 %; NEUT ABS # 4.48 K/uL (1.4-6.5); PLATELET COUNT 143 K/uL (130-400); RED CELL DISTRIBUTION WIDTH CV 13.5 % (11.5-14.5); RED CELL DISTRIBUTION WIDTH SD 46.8 fL (36.4-46.3)
--- NOTE | 2017-11-18 17:51 | DIAGNOSTIC IMAGING REPORT ---
SINGLE VIEW CHEST CLINICAL HISTORY: Strokelike symptoms. FINDINGS: An AP, portable, upright chest radiograph is compared to study dated 11/22/2016. The examination is degraded by portable technique and patient rotation. The heart is markedly enlarged and there is atherosclerotic calcification of the thoracic aorta. The pulmonary vasculature is noncongested. Chronic interstitial thickening similar to previous. There is left basilar atelectasis. No airspace consolidation or large pleural effusion is identified. No pneumothorax is seen. The skeletal structures are osteopenic. The bony thorax is grossly intact. A left shoulder arthroplasty is in place. IMPRESSION: Cardiomegaly with no acute cardiopulmonary abnormality. Electronically signed by: Chacorta Wagner M.D. 11/18/2017 5:50 PM Dictated Date/Time: 11/18/2017 5:49 PM
--- NOTE | 2017-11-18 17:54 | DIAGNOSTIC IMAGING REPORT ---
CT SCAN OF THE BRAIN WITHOUT IV CONTRAST CLINICAL HISTORY: Strokelike symptoms. COMPARISON STUDY: CT of the brain dated 11/22/2016. TECHNIQUE: Unenhanced axial CT scan of the brain is performed from the vertex to the skull base. A dose lowering technique was utilized adhering to the principles of ALARA. CT DOSE: 614.27 mGy.cm FINDINGS: Brain parenchyma: There are age-related involutional changes noting moderate patchy subcortical and periventricular microangiopathic change. There is no hemorrhage, mass effect, or evidence of acute territorial ischemia by CT criteria. Han-white matter is preserved. No extra-axial fluid collection is seen. Ventricles, sulci, cisterns: Prominent secondary to involutional change. Intracranial vasculature: There is atherosclerotic calcification of the cavernous carotid and vertebral arteries. Calvarium: Unremarkable. Sinuses and mastoids: The visualized paranasal sinuses are clear. The mastoid air cells are well pneumatized. Orbits: The bony orbits are grossly intact. There are bilateral ocular lens implants. IMPRESSION: There is no hemorrhage, mass effect, or evidence of acute territorial ischemia by CT criteria. Electronically signed by: Chacorta Wagner M.D. 11/18/2017 5:53 PM Dictated Date/Time: 11/18/2017 5:50 PM
[2017-11-18 18:07] LABS: CALCIUM 8.8 mg/dl (8.5-10.1); CREATININE 1.38 mg/dl (0.60-1.40); POTASSIUM 4.2 mmol/L (3.5-5.1)
[2017-11-18 18:09] LABS: INR 1.9 (0.9-1.1); PTT PATIENT 34.1 SECONDS (21.0-31.0)
[2017-11-18 18:12] LABS: CKMB 3.9 ng/ml (0.5-3.6)
--- NOTE | 2017-11-18 20:03 | History and Physical ---
History & Physical Date & Time of Service: Nov 18, 2017 at 20:01 Chief Complaint: Stroke Symptoms Primary Care Physician: Jen Mendoza History of Present Illness Source: patient Patient with Afib and h/o TIA, HTN presents to ED with stroke like symptoms prior to arrival Patient states around midday, he was sitting when he began experiencing left ankle weakness. This reminded him of his TIA 4 years ago. He began speaking out loud because last time, he had been unable to speak. This time he noted his speech was garbled and non-sensical. The patient pressed his [facility] alarm and staff came to assess him and brought him to the ED. Patient felt almost at baseline by time of arrival. He otherwise denies fevers/chills, headaches, CP, palpitations, dyspnea, abdominal pain, or rashes. He is tolerating diet without nausea or vomiting, ambulating without exacerbating symptoms - he uses a walker at baseline when leaving his apartment, and voiding and stooling appropriately. ROS is unremarkable except as noted above. Past Medical/Surgical History Medical problems Atrial fibrillation HTN GERD Restless leg syndrome Diverticulitis BPH Chronic venous insufficiency IBS Surgical problem Shoulder replacement Hip replacement Partial colectomy Family History Patient reports no known family medical history. Non contributory Social History Smoking Status: Never Smoker Smokeless Tobacco Use: No Alcohol Use: wine/beer daily Drug Use: none Marital Status: Housing status: lives alone (independent-living) Occupational Status: retired Immunizations History of Influenza Vaccine: Yes Influenza Vaccine Date: Jul 19, 2013 History of Tetanus Vaccine?: No History of Pneumococcal: Yes Pneumococcal Date: Sep 19, 2003 History of Hepatitis B Vaccine: No Multi-Drug Resistant Organisms History of MDRO: No Allergies Coded Allergies: Celecoxib (Verified Allergy, Unknown, 11/22/16) Cephalexin (Verified Adverse Reaction, Intermediate, DYSPEPSIA, 11/22/16) Esomeprazole (Verified Adverse Reaction, Intermediate, GI SYMPTOMS, ) NSAIDs (Verified Adverse Reaction, Intermediate, esaphogeal lesions, ) Naproxen (Verified Adverse Reaction, Intermediate, DYSPEPSIA, 11/22/16) Sulfamethoxazole w/Trimethoprim (Verified Adverse Reaction, Intermediate, DYSPEPSIA, 11/22/16) Cephalosporins (Verified Adverse Reaction, Mild, NAUSEA, 11/22/16) Home Medications Scheduled Acetaminophen Tab (Tylenol), 650 MG PO TID Atorvastatin (Lipitor), 10 MG PO QAM Cholecalciferol (Vitamin D3), 1 CAP PO QAM Clopidogrel Bisulfate (Clopidogrel), 75 MG PO Q2D Dutasteride (Dutasteride), 0.5 MG PO HS Furosemide (Furosemide), 20 MG PO QAM Lisinopril (Prinivil), 5 MG PO QAM Melatonin (Kp Melatonin), 1 TAB PO HS Metoprolol Tartrate (Lopressor), 25 MG PO BID Potassium Chloride (Potassium Chloride Er), 10 MEQ PO QAM Senna (Senokot), 1 TAB PO BID Sertraline HCl (Sertraline HCl), 25 MG PO QAM Tramadol HCl (Tramadol HCl), 50 MG PO Q8H Warfarin Sod (Coumadin), 5 MG PO QPM Physical Exam Vital Signs Date Time Temp Pulse Resp B/P (MAP) Pulse Ox O2 Delivery O2 Flow Rate FiO2 11/18/17 19:22 88 20 170/109 95 11/18/17 18:52 81 19 180/106 92 11/18/17 18:04 82 16 168/107 95 Room Air 11/18/17 17:51 81 20 177/100 96 Room Air 11/18/17 17:40 89 11/18/17 17:35 95 Room Air 11/18/17 17:26 36.9 86 17 178/93 95 Room Air General Appearance: WD/WN, no apparent distress Head: normocephalic, atraumatic Eyes: normal inspection, PERRL, EOMI, sclerae normal ENT: hearing grossly normal, pharynx normal Neck: supple, no adenopathy, no carotid bruits Respiratory/Chest: lungs clear, normal breath sounds, no respiratory distress, no accessory muscle use Cardiovascular: regular rate, rhythm, normal peripheral pulses Abdomen/GI: normal bowel sounds, non tender, soft Back: normal inspection, no CVA tenderness Extremities/Musculoskelatal: no calf tenderness, no pedal edema Neurologic/Psych: 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 II-XII nml as tested, no motor/sensory deficits, alert, normal mood/affect, oriented x 3 Skin: normal color, warm/dry, no rash Diagnostics Laboratory Results Results Past 24 Hours Test 11/18/17 17:39 11/18/17 17:40 11/18/17 18:15 Range/Units Bedside Prothrombin Time INR 2.3 0.9-1.1 White Blood Count 6.60 4.8-10.8 K/uL Red Blood Count 4.28 4.7-6.1 M/uL Hemoglobin 13.6 14.0-18.0 g/dL Hematocrit 41.0 42-52 % Mean Corpuscular Volume 95.8 80-100 fL Mean Corpuscular Hemoglobin 31.8 25-34 pg Mean Corpuscular Hemoglobin Concent 33.2 32-36 g/dl Platelet Count 143 130-400 K/uL Mean Platelet Volume 8.5 7.4-10.4 fL Neutrophils (%) (Auto) 67.7 % Lymphocytes (%) (Auto) 23.2 % Monocytes (%) (Auto) 7.0 % Eosinophils (%) (Auto) 1.4 % Basophils (%) (Auto) 0.5 % Neutrophils # (Auto) 4.48 1.4-6.5 K/uL Lymphocytes # (Auto) 1.53 1.2-3.4 K/uL Monocytes # (Auto) 0.46 0.11-0.59 K/uL Eosinophils # (Auto) 0.09 0-0.5 K/uL Basophils # (Auto) 0.03 0-0.2 K/uL RDW Standard Deviation 46.8 36.4-46.3 fL RDW Coefficient of Variation 13.5 11.5-14.5 % Immature Granulocyte % (Auto) 0.2 % Immature Granulocyte # (Auto) 0.01 0.00-0.02 K/uL Prothrombin Time 19.7 9.0-12.0 SECONDS Prothromb Time International Ratio 1.9 0.9-1.1 Activated Partial Thromboplast Time 34.1 21.0-31.0 SECONDS Partial Thromboplastin Ratio 1.3 Sodium Level 134 136-145 mmol/L Potassium Level 4.2 3.5-5.1 mmol/L Chloride Level 101 98-107 mmol/L Carbon Dioxide Level 30 21-32 mmol/L Anion Gap 3.0 3-11 mmol/L Blood Urea Nitrogen 20 7-18 mg/dl Creatinine 1.38 0.60-1.40 mg/dl Est Creatinine Clear Calc Drug Dose 35.8 ml/min Estimated GFR () 52.5 Estimated GFR (Non- 45.3 BUN/Creatinine Ratio 14.7 10-20 Random Glucose 100 70-99 mg/dl Calcium Level 8.8 8.5-10.1 mg/dl Magnesium Level 2.3 1.8-2.4 mg/dl Total Creatine Kinase 178 39-308 U/L Creatine Kinase MB 3.9 0.5-3.6 ng/ml Creatine Kinase MB Ratio 2.2 0-3.0 Troponin I 0.039 0-0.045 ng/ml Urine Color YELLOW Urine Appearance CLEAR CLEAR Urine pH 5.0 4.5-7.5 Urine Specific [place] 1.015 1.000-1.030 Urine Protein NEG NEG Urine Glucose (UA) NEG NEG Urine Ketones NEG NEG Urine Occult Blood NEG NEG Urine Nitrite NEG NEG Urine Bilirubin NEG NEG Urine Urobilinogen NEG NEG Urine Leukocyte Esterase NEG NEG Diagnostic Radiology CT SCAN OF THE BRAIN WITHOUT IV CONTRAST CLINICAL HISTORY: Strokelike symptoms. COMPARISON STUDY: CT of the brain dated 11/22/2016. TECHNIQUE: Unenhanced axial CT scan of the brain is performed from the vertex to the skull base. A dose lowering technique was utilized adhering to the principles of ALARA. CT DOSE: 614.27 mGy.cm FINDINGS: Brain parenchyma: There are age-related involutional changes noting moderate patchy subcortical and periventricular microangiopathic change. There is no hemorrhage, mass effect, or evidence of acute territorial ischemia by CT criteria. Han-white matter is preserved. No extra-axial fluid collection is seen. Ventricles, sulci, cisterns: Prominent secondary to involutional change. Intracranial vasculature: There is atherosclerotic calcification of the cavernous carotid and vertebral arteries. Calvarium: Unremarkable. Sinuses and mastoids: The visualized paranasal sinuses are clear. The mastoid air cells are well pneumatized. Orbits: The bony orbits are grossly intact. There are bilateral ocular lens implants. IMPRESSION: There is no hemorrhage, mass effect, or evidence of acute territorial ischemia by CT criteria. SINGLE VIEW CHEST CLINICAL HISTORY: Strokelike symptoms. FINDINGS: An AP, portable, upright chest radiograph is compared to study dated 11/22/2016. The examination is degraded by portable technique and patient rotation. The heart is markedly enlarged and there is atherosclerotic calcification of the thoracic aorta. The pulmonary vasculature is noncongested. Chronic interstitial thickening similar to previous. There is left basilar atelectasis. No airspace consolidation or large pleural effusion is identified. No pneumothorax is seen. The skeletal structures are osteopenic. The bony thorax is grossly intact. A left shoulder arthroplasty is in place. IMPRESSION: Cardiomegaly with no acute cardiopulmonary abnormality. EKG Atrial fibrillation Inferior infarct (cited on or before 05-JUN-2015) Anteroseptal infarct (cited on or before 05-JUN-2015) Abnormal ECG When compared with ECG of 22-NOV-2016 21:05, No significant change was found HR 73, QTc 463 Impression Assessment and Plan 87 year old male with a.fib, h/o TIA presents with stroke like symptoms Stroke like symptoms - Stroke protocol initiated - Aspirin and atorvastatin started - Neurology consulted - Patient declined MRI due to claustrophobia, thus CT head and neck angio ordered - ECHO ordered Atrial fibrillation - Continue metoprolol and warfarin. - Trend INR HTN - Continue metoprolol, lisinopril and furosemide + KCl supplementation BPH - Continue dutasteride Chronic venous insufficiency with leg pain - Continue furosemide and tramadol Depression - Continue sertraline VTE ppx - Hep SC FULL CODE Attending addendum: I have physically seen this patient, have supervised the medical residents activities, and agree with the H&P unless as otherwise noted. Assessment and Plan: TIA versus CVA-- The patient will be admitted to telemetry for serial cardiac enzymes, serial EKG's, cardiac rhythm monitoring and a 2-D echocardiogram with Dopplers. Stroke protocol Order CTA of head and neck, since patient unable to tolerate MRI Start aspirin 81 mg daily Start atorvastatin 80 mg daily Neurochecks per protocol Consult neurology Atrial fibrillation/hypertension-- Continue metoprolol, warfarin, lisinopril, furosemide and potassium Follow serial laboratories Level of Care Telemetry Advanced Directives Existing Power of Market Research Executive: No Resuscitation Status FULL RESUSCITATION VTE Prophylaxis VTE Risk Assessment Done? Y/N: Yes Risk Level: Moderate Given or contraindicated: Unfractionated heparin SQ Resident Tracking Resident Involvement: Resident Care Provided Care Provided: Adult Hospital Medicine
[2017-11-18] MEDS ORDERED: MELA1TAB5 PO (20:41)
[2017-11-18] MEDS ORDERED: DUTA1CAP3 PO (20:41)
[2017-11-18] MEDS ORDERED: POTA1CAP2 PO (20:41)
[2017-11-18] MEDS ORDERED: LPR25 PO (20:41)
[2017-11-18] MEDS ORDERED: SERT1TAB88 PO (20:41)
[2017-11-18] MEDS ORDERED: WARF-283 PO (20:41)
[2017-11-18] MEDS ORDERED: CHOL2000 PO (20:41)
[2017-11-18] MEDS ORDERED: SENN-61 PO (20:41)
[2017-11-18] MEDS ORDERED: LSX20 PO (20:41)
[2017-11-18] MEDS ORDERED: ULT50 PO (20:42)
[2017-11-18] MEDS ORDERED: LISI5TAB PO (20:42)
[2017-11-18] MEDS ORDERED: ASPIRIN 81 MG CHEW PO ONE (20:42)
[2017-11-18] MEDS ORDERED: ALUMINUM/MAGNESIUM/SIMETH (MAALOX MAX) 30 ML UDC PO PRN (20:45)
[2017-11-18] MEDS ORDERED: ACETAMINOPHEN 325 MG TAB PO PRN (20:45)
[2017-11-18] MEDS ORDERED: ONDANSETRON INJ 2 MG/ML 2 ML VIAL IV PRN (20:45)
[2017-11-18] MEDS ORDERED: MAGNESIUM HYDROXIDE SUSP 30 ML UDC PO PRN (20:45)
[2017-11-18] MEDS ORDERED: PHARMACIST DISCHARGE MED REC CONSULT PRN (20:45)
[2017-11-18] MEDS ORDERED: IV FLUIDS COMPLETED PRN (21:30)
[2017-11-18] MEDS ORDERED: OPTIRAY 320 IV PRN (22:00)
[2017-11-18 22:15] VITALS: BP_SYST 176; BP_SYST 179; BP_DIAS 91; BP_DIAS 94; PULSE 82; TEMP 37; O2SAT 95; Ht 175.3 cm; Wt 78.5 kg
--- NOTE | 2017-11-18 22:19 | DIAGNOSTIC IMAGING REPORT ---
HEAD ANGIO WITH CONTRAST, NECK ANGIO WITH CONTRAST CLINICAL HISTORY: 87 years-old Male presenting with TIA. TECHNIQUE: Multidetector CT angiography of the head and neck was performed after the administration of intravenous contrast. 3-D volumetric and/or maximum intensity projection (MIP) images were subsequently reconstructed for review. IV contrast: 116 mL of Optiray 320. A dose lowering technique was used consistent with the principles of ALARA (as low as reasonably achievable). Stenosis measurements were based on NASCET-like criteria. COMPARISON: CT head performed earlier the same day. CT DOSE (mGy.cm): The estimated cumulative dose is 574.26. 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 CTA HEAD: Anterior circulation demonstrates patent intracranial portions of the internal carotid arteries. The A1 segment of the right anterior cerebral artery is aplastic. The A2 segment of the right anterior cerebral artery is patent filling via the anterior communicating artery. The posterior circulation demonstrates a right dominant vertebral artery. Both vertebral arteries contribute to the patent basilar artery. Posterior inferior cerebellar, superior cerebellar, and posterior cerebral arteries patent. origin of the right posterior cerebral artery. Hypoplastic or aplastic left posterior communicating artery. Patent cortical veins and dural venous sinuses. CTA NECK: Atherosclerosis of the four-vessel aortic arch. No significant narrowing of the cervical vessels at their origins at the aortic arch. Bilateral common carotid arteries patent. Tortuosity of the cervical vessels could suggest chronic hypertension. Calcified atherosclerosis of the carotid bifurcations though no significant narrowing of the internal carotid arteries. Patent origin of the right vertebral artery. The bilateral vertebral arteries are patent along their courses with a right dominant vertebral artery noted. Lung apices essentially clear. Degenerative changes of the cervical spine. Soft tissues of the neck within normal limits allowing for the phase of contrast. IMPRESSION: 1. No aneurysm, significant stenosis, or focal vessel occlusion aneurysm in the intracranial arteries. Variant anatomy as above. 2. No evidence of dissection, significant stenosis, or focal vessel occlusion in the cervical arteries. 3. Mild atherosclerosis of the carotid bulbs. Electronically signed by: Felix Bowling M.D. 11/18/2017 10:18 PM Dictated Date/Time: 11/18/2017 10:09 PM
[2017-11-18] MEDS: SODIUM CHLORIDE 0.9% 1000ML 1,000 ML IV SCH (23:38)
[2017-11-18] MEDS: SENNA 8.6 MG TAB PO SCH (23:41)
[2017-11-18] MEDS: TRAMADOL HCL 50 MG TAB PO SCH (23:41)
[2017-11-18] MEDS: WARFARIN SOD 4 MG TAB PO SCH (23:41)
[2017-11-18] MEDS: METOPROLOL TARTRATE 25 MG TAB PO SCH (23:42)
[2017-11-18 23:43] VITALS: BP 159/77; PULSE 77; TEMP 36.9; O2SAT 95
[2017-11-18] MEDS: HEPARIN SOD 5000 UNIT/0.5 ML CARP SQ SCH (23:44)
[2017-11-19 03:40] VITALS: BP 155/80; PULSE 59; TEMP 36.6; O2SAT 95
[2017-11-19] MEDS: TRAMADOL HCL 50 MG TAB PO SCH ×2 (05:10→12:36)
[2017-11-19 06:46] LABS: BASO % 0.7 %; BASO ABS # 0.04 K/uL (0-0.2); EOS % 1.8 %; EOS ABS # 0.11 K/uL (0-0.5); HEMATOCRIT 37.3 % (42-52); HEMOGLOBIN 12.1 g/dL (14.0-18.0); IG# 0.01 K/uL (0.00-0.02); LYMPH % 20.4 %; LYMPH ABS # 1.25 K/uL (1.2-3.4); MEAN CELL VOLUME 94.9 fL (80-100); MEAN CORPUSCULAR HEMOGLOBIN 30.8 pg (25-34); MEAN CORPUSCULAR HGB CONC 32.4 g/dl (32-36); MEAN PLATELET VOLUME 8.8 fL (7.4-10.4); MONO % 8.6 %; MONO ABS # 0.53 K/uL (0.11-0.59); NEUT % 68.3 %; PLATELET COUNT 133 K/uL (130-400); RED CELL DISTRIBUTION WIDTH CV 13.5 % (11.5-14.5); RED CELL DISTRIBUTION WIDTH SD 46.9 fL (36.4-46.3); WHITE BLOOD COUNT 6.14 K/uL (4.8-10.8)
[2017-11-19 07:03] LABS: HEMOGLOBIN A1C 5.7 % (4.5-5.6)
[2017-11-19 07:09] LABS: CALCIUM 8.2 mg/dl (8.5-10.1); CREATININE 1.2 mg/dl (0.60-1.40); POTASSIUM 4.4 mmol/L (3.5-5.1)
[2017-11-19 07:51] VITALS: BP 167/83; PULSE 84; TEMP 36.5; O2SAT 93
[2017-11-19] MEDS: HEPARIN SOD 5000 UNIT/0.5 ML CARP SQ SCH (08:10)
[2017-11-19] MEDS: METOPROLOL TARTRATE 25 MG TAB PO SCH (08:11)
[2017-11-19] MEDS: SENNA 8.6 MG TAB PO SCH (08:11)
[2017-11-19] MEDS: SODIUM CHLORIDE 0.9% 1000ML 1,000 ML IV SCH (08:12)
[2017-11-19] MEDS ORDERED: SERTRALINE HCL 50 MG TAB PO SCH (09:00)
[2017-11-19] MEDS ORDERED: ASPIRIN 81 MG ECTAB PO SCH (09:00)
[2017-11-19] MEDS ORDERED: POTASSIUM CHLORIDE 10 MEQ TABCR PO SCH (09:00)
[2017-11-19] MEDS ORDERED: LISINOPRIL 5 MG TAB PO SCH (09:00)
[2017-11-19] MEDS ORDERED: ATORVASTATIN 40 MG TAB PO SCH (09:00)
[2017-11-19] MEDS ORDERED: FUROSEMIDE 20 MG TAB PO SCH (09:00)
[2017-11-19] MEDS ORDERED: LPT10 PO ×2 (09:58→16:09)
[2017-11-19] MEDS ORDERED: PLV75 PO ×2 (09:58→16:09)
[2017-11-19] MEDS ORDERED: ENOXAPARIN 1.5 MG/KG SQ STA (09:59)
[2017-11-19 10:00] LABS: INR 1.8 (0.9-1.1)
--- NOTE | 2017-11-19 10:01 | Neurology Consultation ---
Neurology Consultation Date of Consultation: Nov 19, 2017. Attending Physician: Bárbara Leach MD Primary Care Physician: Jen Mendoza Reason for Consultation: Patient is an 87-year-old, was asked to see the request of Dr. Villalba, for neurologic consultation regarding TIA History of Present Illness Source: patient, caregiver, clinic records, hospital records I 1st saw this patient in July of 2014. At that time, he had a 2-3 hour episode of expressive aphasia. The time I saw him is any age stroke scale was back to 0 and he had no focal signs, meningeal signs, or encephalopathy. Patient had a history of atrial fibrillation for years with congestive heart failure chronically on Coumadin, followed by Cardiology. At that time I noted an underlying polyneuropathy giving him a sensory ataxia with his gait. He has CT scan was unremarkable. We could not get an MRI of the brain because of extreme claustrophobia (and the need for general anesthesia to get it done). I initiated 81 milligram aspirin tablet every other day with food to help prevent small vessel ischemic changes. Sometime thereafter he was taken off the aspirin because of GI issues. I cannot be certain whether was GI bleeding or simply GI irritation. Patient had a partial colectomy 2000 for significant diverticulitis, and still has some GI issues. He has remained on Coumadin alone. He does not have excessive bruising. In November of 2016, the patient fell couple of times, hitting his head. CT scan of the head November 22 showed a small right tentorial bleeding consistent with some subdural hematoma. There was a little bit of subdural over the left convexity as well. He was followed by neurosurgeons who felt that no surgery was needed and by December the blood had resorbed and he was put back on Coumadin. He has had no headaches or significant falls with head trauma since. Sometime around 1600 hours on November 18, the patient had the onset of some forgetfulness as to how to use things such as his computer. He felt tired and he noted that his speech was disconnected. He knew what he wanted to say but were wrong words would come out, no words would come out, or nonsense words might come out. He has believes he did not have any articulation problem or dysarthria. During this time he also noted that his left ankle had some soreness, swelling, and some weakness but he has had edema in his legs intermittently for some time. He did not note any specific limb weakness and he had no numbness. He had no other limb or spine pain or headache. He did feel that he was a little bit lightheaded with standing but he did not pass out or have significant vertigo. He had no new vision problems. He called for help at [facility], where he lives, and he was transported by ambulance to the emergency room. The worst of his speech problem lasted about an hour but was certainly gone by the time he arrived to the emergency room. He arrived at the emergency room at 1726 hours with a temperature of 36.9, pulse 86 and irregular, respiratory rate 17, blood pressure 178/93, and O2 saturation 95 percent. His neurologic examination was nonfocal, he had no meningeal signs, and he had no encephalopathy or confusion. He had no speech problems. CT scan of the head was unremarkable for acute changes. Chest x-ray shows cardiomegaly. Laboratory studies were unremarkable although this some very mild anemia. Chem profile was unremarkable and hemoglobin A1c was 5.7. Urinalysis was unremarkable. Fasting lipid profile showed a cholesterol of 167. Patient was felt to not be a tPA candidate as his symptoms had completely resolved. CT angiography of the head neck was unremarkable with no significant large vessel stenosis or aneurysms. I reviewed all of these films as well as a CT scan of the head and laboratory studies. After admission, the patient had no further events or problems. His speech is remain normal. He has remained in atrial fibrillation chronically since admission. His rate has been anywhere from the 50s to 90s although he is a currently in the 70s. He has had a few small runs of PVCs anywhere from 3-6 beats. He is asymptomatic without chest pain or shortness of breath. Blood pressure remains mildly elevated. Patient has no anxiety depression. 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 Past Medical/Surgical History Medical Problems: (1) Epistaxis Status: Acute (2) TIA (transient ischemic attack) Status: Acute History of TIA 2013, as noted by an episode of expressive aphasia Congestive heart failure with cardiomegaly Atrial fibrillation, chronic, on Coumadin Benign prostatic hypertrophy Gastroesophageal reflux disease, diverticulitis/diverticulosis post partial colectomy (2000), irritable bowel syndrome Chronic venous insufficiency. Hypertension History of restless legs syndrome and insomnia Post tonsillectomy Bilateral inguinal hernia repair Status post right hip surgery twice, and 1993 Left shoulder madhavi arthrodesis surgery Post bilateral cataract repair Family History Mother age 88 of a stroke Father age 52 from a suicide Social History Patient has never used tobacco products. He drinks either 1 glass of wine prior to his evening meal or 1 small [place]. He does not do this every single night. He has been doing this regularly. 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 He had been at running and participating in racquet sports for many years Smoking Status: Never smoker Smokeless Tobacco Use: No Alcohol Use: wine/beer daily Drug Use: none Marital Status: Housing Status: lives alone Occupation Status: retired Allergies Coded Allergies: Celecoxib (Verified Allergy, Unknown, 11/22/16) Cephalexin (Verified Adverse Reaction, Intermediate, DYSPEPSIA, 11/22/16) Esomeprazole (Verified Adverse Reaction, Intermediate, GI SYMPTOMS, ) NSAIDs (Verified Adverse Reaction, Intermediate, esaphogeal lesions, ) Naproxen (Verified Adverse Reaction, Intermediate, DYSPEPSIA, 11/22/16) Sulfamethoxazole w/Trimethoprim (Verified Adverse Reaction, Intermediate, DYSPEPSIA, 11/22/16) Cephalosporins (Verified Adverse Reaction, Mild, NAUSEA, 11/22/16) Current Inpatient Medications Current Inpatient Medications Medications (Trade) Dose Ordered Sig/Nina Route Start Time Stop Time Status Last Admin Dose Admin Acetaminophen (Tylenol Tab) 650 mg Q4H PRN PO 11/18/17 20:45 12/18/17 20:44 Al Hydrox/Mg Hydrox/Simethicone (Maalox Max Susp) 15 ml Q4H PRN PO 11/18/17 20:45 12/18/17 20:44 Magnesium Hydroxide (Milk Of Magnesia Susp) 30 ml Q12H PRN PO 11/18/17 20:45 12/18/17 20:44 Ondansetron HCl (Zofran Inj) 4 mg Q6H PRN IV 11/18/17 20:45 12/18/17 20:44 Miscellaneous Information (Pharmacist Discharge Med Rec Consult) 1 ea UD PRN N/A 11/18/17 20:45 12/18/17 20:44 Furosemide (Lasix Tab) 20 mg QAM PO 11/19/17 09:00 12/19/17 08:59 11/19/17 08:11 20 MG Lisinopril (Zestril Tab) 5 mg QAM PO 11/19/17 09:00 12/19/17 08:59 11/19/17 08:12 5 MG Metoprolol Tartrate (Lopressor Tab) 25 mg BID PO 11/18/17 21:00 12/18/17 20:59 11/19/17 08:11 25 MG Senna (Senokot Tab) 8.6 mg BID PO 11/18/17 23:00 12/18/17 22:59 11/19/17 08:11 8.6 MG Tramadol HCl (Ultram Tab) 50 mg Q8H PO 11/18/17 20:45 12/18/17 20:44 11/19/17 05:10 50 MG Warfarin Sodium (Coumadin Tab) 4 mg DAILY@1600 PO 11/18/17 23:00 12/18/17 22:59 11/18/17 23:41 4 MG Miscellaneous Information (Order Awaiting Action) 1 ea QS N/A 11/19/17 00:00 12/19/17 00:00 Potassium Chloride (Klor-Con M10) 10 meq QAM PO 11/19/17 09:00 12/19/17 08:59 11/19/17 08:11 10 MEQ Sertraline HCl (Zoloft Tab) 25 mg QAM PO 11/19/17 09:00 12/19/17 08:59 11/19/17 08:11 25 MG Aspirin (Ecotrin Tab) 81 mg QAM PO 11/19/17 09:00 12/19/17 08:59 11/19/17 08:11 81 MG Atorvastatin Calcium (Lipitor Tab) 40 mg QAM PO 11/19/17 09:00 12/19/17 08:59 11/19/17 08:11 40 MG Miscellaneous (Iv Fluids Completed) 1 ea PRN PRN N/A 11/18/17 21:30 11/18/18 21:29 Ioversol (Optiray 320) 116 ml UD PRN IV 11/18/17 22:00 11/22/17 21:59 Review of Systems Constitutional: + fatigue, No weakness Eyes: No worsening of vision, No diplopia ENT: No hearing loss, No tinnitus Respiratory: No cough, No shortness of breath Cardiovascular: No chest pain, No palpitations Abdomen: No pain, No nausea Musculoskeletal: No joint pain, No muscle pain Genitourinary - Male: No hematuria, No urinary incontinence Neurologic: No memory loss, No weakness, No numbness/tingling, No vertigo, No balance problems Psychiatric: No depression symptoms, No anxiety Endocrine: No fatigue Hematologic / Lymphatic: No abnormal bleeding/bruising Integumentary: No rash Allergic / Immunologic: No hives Physical Exam Vital Signs (Past 24 Hrs): Date Time Temp Pulse Resp B/P (MAP) Pulse Ox O2 Delivery O2 Flow Rate FiO2 11/19/17 07:51 36.5 84 18 167/83 (111) 93 Room Air 11/19/17 04:00 Room Air 11/19/17 03:40 36.6 59 17 155/80 (105) 95 Room Air 11/19/17 00:00 Room Air 11/18/17 23:43 36.9 77 18 159/77 (104) 95 Room Air 11/18/17 22:15 37.0 82 18 176/94 95 Room Air 179/91 11/18/17 20:27 87 18 178/97 95 Room Air 11/18/17 19:57 87 22 182/108 94 Room Air 11/18/17 19:22 88 20 170/109 95 11/18/17 18:53 75 18 167/75 94 Room Air 11/18/17 18:52 81 19 180/106 92 11/18/17 18:04 82 16 168/107 95 Room Air 11/18/17 17:51 81 20 177/100 96 Room Air 11/18/17 17:40 89 11/18/17 17:35 95 Room Air 11/18/17 17:26 36.9 86 17 178/93 95 Room Air Patient is right-handed. The patient is awake and alert. Speech is normal without aphasia or dysarthria. Mentation and thought processes are intact with orientation and normal fund of knowledge. Mood and affect are normal and appropriate. Appearance and grooming are normal. Long and short-term memory are intact. Patient is oriented to person place and time month, season, year, calculations, current events and he can write well also. The discs are sharp with positive venous pulsations. There are no exudates, hemorrhages, or blood vessel changes seen. Pupils are 3mm bilaterally and reactive to light. Extraocular eye muscles are intact without nystagmus. Visual acuity and visual gastelum seem normal grossly to confrontation. There are no deficits to sensation of the face bilaterally. Corneal reflexes are positive bilaterally. Facial strength and symmetry is normal bilaterally. Hearing is decreased bilaterally and he uses hearing aids. Palate moves well without asymmetry. There is normal sternocleidomastoid and trapezius strength bilaterally. Tongue is midline with good strength bilaterally. Neck is with full range of motion without discomfort. Gait is narrow based but unsteady he is unsteady with turns but his stance with feet together and eyes open is reasonable. With outstretched arms there is no drift. There are no resting, postural, or action tremors. There is no ataxia with [id number] testing. There is good facility in the hands. There are no abnormal involuntary movements noted. Motor strength is 5/5 diffusely in the arms bilaterally including deltoids, biceps, brachioradialis, wrist flexors and extensors, gis analyst, and intrinsic hand muscles, although he has some shoulder girdle weakness on the left. Motor strength is 5/5 diffusely in the legs bilaterally including hip flexors, quadriceps, hamstring, gastrocnemius, tibialis anterior, tibialis posterior, and peroneii muscles bilaterally. Toe extensors are normal and there is good bulk in the extensor digitorum brevis muscle bilaterally. The limbs have good tone without rigidity or spasticity, and there is no atrophy noted. Muscle bulk is normal, there is no tenderness, no myotonia noted to percussion, and no fasciculations seen. Sensory examination is intact to pin and touch throughout all four limbs. Reflexes are 1/4 in the biceps tendons bilaterally. Triceps, brachioradialis, Achilles, and quadriceps tendon reflexes are absent bilaterally even with reinforcement maneuvers. Toes are downgoing with plantar stimulation bilaterally. Peripheral pulses are present and of normal quality distally in all four limbs. There is no peripheral edema noted. Laboratory Results Past 24 Hours: 11/19/17 06:08 Red Blood Count 3.93, Mean Corpuscular Volume 94.9, Mean Corpuscular Hemoglobin 30.8, Mean Corpuscular Hemoglobin Concent 32.4, Mean Platelet Volume 8.8, Neutrophils (%) (Auto) 68.3, Lymphocytes (%) (Auto) 20.4, Monocytes (%) (Auto) 8.6, Eosinophils (%) (Auto) 1.8, Basophils (%) (Auto) 0.7, Neutrophils # (Auto) 4.20, Lymphocytes # (Auto) 1.25, Monocytes # (Auto) 0.53, Eosinophils # (Auto) 0.11, Basophils # (Auto) 0.04 11/19/17 06:08 Test 11/18/17 17:39 11/18/17 17:40 11/18/17 18:15 11/19/17 06:08 Bedside Prothrombin Time INR 2.3 (0.9-1.1) Bedside Glucose 93 mg/dl (70-99) Activated Partial Thromboplast Time 34.1 SECONDS (21.0-31.0) Partial Thromboplastin Ratio 1.3 Magnesium Level 2.3 mg/dl (1.8-2.4) Total Creatine Kinase 178 U/L (39-308) Creatine Kinase MB 3.9 ng/ml (0.5-3.6) Creatine Kinase MB Ratio 2.2 (0-3.0) Troponin I 0.039 ng/ml (0-0.045) Urine Color YELLOW Urine Appearance CLEAR (CLEAR) Urine pH 5.0 (4.5-7.5) Urine Specific [place] 1.015 (1.000-1.030) Urine Protein NEG (NEG) Urine Glucose (UA) NEG (NEG) Urine Ketones NEG (NEG) Urine Occult Blood NEG (NEG) Urine Nitrite NEG (NEG) Urine Bilirubin NEG (NEG) Urine Urobilinogen NEG (NEG) Urine Leukocyte Esterase NEG (NEG) White Blood Count 6.14 K/uL (4.8-10.8) Red Blood Count 3.93 M/uL (4.7-6.1) Hemoglobin 12.1 g/dL (14.0-18.0) Hematocrit 37.3 % (42-52) Mean Corpuscular Volume 94.9 fL (80-100) Mean Corpuscular Hemoglobin 30.8 pg (25-34) Mean Corpuscular Hemoglobin Concent 32.4 g/dl (32-36) Platelet Count 133 K/uL (130-400) Mean Platelet Volume 8.8 fL (7.4-10.4) Neutrophils (%) (Auto) 68.3 % Lymphocytes (%) (Auto) 20.4 % Monocytes (%) (Auto) 8.6 % Eosinophils (%) (Auto) 1.8 % Basophils (%) (Auto) 0.7 % Neutrophils # (Auto) 4.20 K/uL (1.4-6.5) Lymphocytes # (Auto) 1.25 K/uL (1.2-3.4) Monocytes # (Auto) 0.53 K/uL (0.11-0.59) Eosinophils # (Auto) 0.11 K/uL (0-0.5) Basophils # (Auto) 0.04 K/uL (0-0.2) RDW Standard Deviation 46.9 fL (36.4-46.3) RDW Coefficient of Variation 13.5 % (11.5-14.5) Immature Granulocyte % (Auto) 0.2 % Immature Granulocyte # (Auto) 0.01 K/uL (0.00-0.02) Anion Gap 3.0 mmol/L (3-11) Est Creatinine Clear Calc Drug Dose 42.6 ml/min Estimated GFR () 62.2 Estimated GFR (Non- 53.7 BUN/Creatinine Ratio 15.0 (10-20) Estimated Average Glucose 117 mg/dl Hemoglobin A1c 5.7 % (4.5-5.6) Calcium Level 8.2 mg/dl (8.5-10.1) Triglycerides Level 116 mg/dl (0-150) Cholesterol Level 167 mg/dl (0-200) HDL Cholesterol 51 mg/dl LDL Cholesterol, Calculated 93 mg/dl VLDL Cholesterol, Calculated 23 mg/dl Cholesterol/HDL Ratio 3.3 Test 11/19/17 08:32 Imaging HEAD ANGIO WITH CONTRAST, NECK ANGIO WITH CONTRAST CLINICAL HISTORY: 87 years-old Male presenting with TIA. TECHNIQUE: Multidetector CT angiography of the head and neck was performed after the administration of intravenous contrast. 3-D volumetric and/or maximum intensity projection (MIP) images were subsequently reconstructed for review. IV contrast: 116 mL of Optiray 320. A dose lowering technique was used consistent with the principles of ALARA (as low as reasonably achievable). Stenosis measurements were based on NASCET-like criteria. COMPARISON: CT head performed earlier the same day. CT DOSE (mGy.cm): The estimated cumulative dose is 574.26. 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 CTA HEAD: Anterior circulation demonstrates patent intracranial portions of the internal carotid arteries. The A1 segment of the right anterior cerebral artery is aplastic. The A2 segment of the right anterior cerebral artery is patent filling via the anterior communicating artery. The posterior circulation demonstrates a right dominant vertebral artery. Both vertebral arteries contribute to the patent basilar artery. Posterior inferior cerebellar, superior cerebellar, and posterior cerebral arteries patent. origin of the right posterior cerebral artery. Hypoplastic or aplastic left posterior communicating artery. Patent cortical veins and dural venous sinuses. CTA NECK: Atherosclerosis of the four-vessel aortic arch. No significant narrowing of the cervical vessels at their origins at the aortic arch. Bilateral common carotid arteries patent. Tortuosity of the cervical vessels could suggest chronic hypertension. Calcified atherosclerosis of the carotid bifurcations though no significant narrowing of the internal carotid arteries. Patent origin of the right vertebral artery. The bilateral vertebral arteries are patent along their courses with a right dominant vertebral artery noted. Lung apices essentially clear. Degenerative changes of the cervical spine. Soft tissues of the neck within normal limits allowing for the phase of contrast. IMPRESSION: 1. No aneurysm, significant stenosis, or focal vessel occlusion aneurysm in the intracranial arteries. Variant anatomy as above. 2. No evidence of dissection, significant stenosis, or focal vessel occlusion in the cervical arteries. 3. Mild atherosclerosis of the carotid bulbs. Electronically signed by: Felix Bowling M.D. 11/18/2017 10:18 PM Impression 1. Episode, November 18, of expressive aphasia consistent with transient ischemic attack from small vessel ischemic disease. Currently, he has no focal neurologic findings, meningeal signs, or encephalopathy. NIH stroke scale equals [address] scan of the head which was largely unremarkable. He is quite claustrophobic and it would be impossible to get an MRI without general anesthesia. This is his 2nd TIA, with the 1st being in July of 2014. His risk factors include is longstanding hypertension which is not adequately controlled. He has no significant lipid or glucose abnormality. He has never been a tobacco user. 2. Atrial fibrillation, chronic, on Coumadin. He is stable. 3. 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 He is at great fall risk and has already had a subdural hematoma in November of 2016. 4. Hypertension. Plan 1. Normally, I would obtain an MRI of the brain but since he is so claustrophobic we will do without it. I still feel he has had a TIA and not a small stroke. I do not see a need for repeating CT scan either. 2. Control blood pressure as you are doing. Try for a mean arterial pressure of approximately 100 or so now and can be adjusted more as an outpatient if needed. 3. Echocardiogram is pending 4. Treatment options for this patient are difficult because he does not tolerate aspirin. We could initiate clopidogrel 75 milligrams every other day to help prevent small vessel ischemic disease. I spent a total of 120 minutes with this patient including records review, direct evaluation of the patient, discussion with the patient at bedside as well as clinical staff and Dr. Leach. I have no further neurologic testing or treatment recommendations to make at this time and I can follow as an outpatient in the next 1-2 weeks.
[2017-11-19] MEDS ORDERED: CMD5 PO ×2 (10:22→16:09)
[2017-11-19] MEDS ORDERED: ENOXAPARIN 120 MG/0.8 ML SYR SQ ONE (11:00)
[2017-11-19 11:56] VITALS: BP 157/80; PULSE 106; TEMP 36.8; O2SAT 95
[2017-11-19] MEDS: WARFARIN SOD 4 MG TAB PO SCH (15:43)
--- NOTE | 2017-11-19 15:46 | ECHOCARDIOGRAM REPORT ---
*NOTICE TO RECEIVING LIBERTARIAN AGENCY This information is strictly Confidential and protected under [place] law. [place] law prohibits you from making any further disclosure of this information unless further disclosure is expressly permitted by the written consent of the person to whom it pertains or is authorized by law. A general authorization for the release of medical or other information is not sufficient for this purpose. Hospital accepts no responsibility if the information is made available to any other person, INCLUDING THE PATIENT. Interpretation Summary * Name: YINA GREENE Study Date: 11/19/2017 07:34 AM BP: 167/83 mmHg * Patient Location: C.2T\S\S238\S\2 HR: 84 * : 1930 (M/d/yyyy) Gender: Male Height: 68 in * Age: 87 yrs Ethnicity: CA Weight: 167 lb * Ordering Physician: Venus Clark. * Referring Physician: Jen Mendoza * Performed By: Cornelia Conner RDCS * * Reason For Study: A-fib * BSA: 1.9 m2 * Mild left ventricular systolic dysfunction. * Basal inferior akinesis. * Anteroseptal hypokinesis - akinesis. * Mild right ventricular dilatation and systolic dysfunction. * Mild aortic regurgitation. * Trace pulmonic regurgitation. * Mild - moderate mitral regurgitaion. * Mild tricuspid regurgitation. * Moderate aortic dilatation. * -- Conclusions -- * Aortic valve sclerosis moderate, without significant aortic valvular stenosis. Procedure Details * A complete two-dimensional transthoracic echocardiogram was performed (2D, M-mode, Doppler and color flow Doppler). Left Ventricle * The left ventricle is normal in size. * There is normal left ventricular wall thickness. * Ejection Fraction = 45-50%. * Left ventricular systolic function is mildly reduced. * Basal inferior akinesis. Anteroseptal hypokineis - akinesis. Right Ventricle * The right ventricle is mildly dilated. * The right ventricular systolic function is mildly reduced. * The right ventricular systolic function is reduced as assessed by tricuspid annular plane systolic excursion (TAPSE) (TAPSE <1.6 cm). Atria * The left atrium is moderately dilated. * The right atrium is moderately dilated. * No ASD detected; PFO is not assessed. Mitral Valve * There is mild mitral annular calcification. * There is no mitral valve stenosis. * There is mild to moderate mitral regurgitation. Tricuspid Valve * The tricuspid valve is normal. * There is no tricuspid stenosis. * There is mild tricuspid regurgitation. * Right ventricular systolic pressure is normal. Aortic Valve * The aortic valve is trileaflet. * Aortic valve sclerosis moderate, without significant aortic valvular stenosis. * No hemodynamically significant valvular aortic stenosis. * Mild aortic regurgitation. Pulmonic Valve * The pulmonic valve is not well visualized. * There is no pulmonic valvular stenosis. * Trace pulmonic valvular regurgitation. Great Vessels * Moderate aortic root dilatation. Pericardium/Pleural * There is no pericardial effusion. Great Vessels * Normal inferior vena cava diameter and respiratory variation suggests normal central venous pressure. MMode 2D Measurements and Calculations IVSd 1.1 cm LVIDd 5.1 cm LVIDs 3.6 cm LVPWd 1.1 cm IVS/LVPW 1.0 FS 28.1 % EDV(Teich) 122.3 ml ESV(Teich) 56.1 ml EF(Teich) 54.1 % EDV(cubed) 130.5 ml ESV(cubed) 48.5 ml EF(cubed) 62.9 % LV mass(C)d 213.5 grams LV mass(C)dI 112.8 grams/m\S\2 SV(Teich) 66.1 ml SI(Teich) 34.9 ml/m\S\2 SV(cubed) 82.0 ml SI(cubed) 43.3 ml/m\S\2 Ao root diam 4.5 cm Ao root area 16.1 cm\S\2 ACS 1.9 cm LA dimension 4.9 cm asc Aorta Diam 3.8 cm LA/Ao 1.1 LVOT diam 2.0 cm LVOT area 3.1 cm\S\2 LVAd ap4 29.9 cm\S\2 LVLd ap4 7.3 cm EDV(MOD-sp4) 97.2 ml EDV(sp4-el) 104.1 ml LVAs ap4 19.3 cm\S\2 LVLs ap4 6.5 cm ESV(MOD-sp4) 46.6 ml ESV(sp4-el) 48.5 ml EF(MOD-sp4) 52.1 % EF(sp4-el) 53.4 % LVAd ap2 35.4 cm\S\2 LVLd ap2 7.6 cm EDV(MOD-sp2) 135.1 ml EDV(sp2-el) 139.4 ml LVAs ap2 22.0 cm\S\2 LVLs ap2 6.8 cm ESV(MOD-sp2) 59.4 ml ESV(sp2-el) 60.7 ml EF(MOD-sp2) 56.0 % EF(sp2-el) 56.4 % LVLd %diff 4.4 % EDV(MOD-bp) 115.9 ml LVLs %diff 3.3 % ESV(MOD-bp) 53.9 ml EF(MOD-bp) 53.5 % SV(MOD-sp4) 50.7 ml SI(MOD-sp4) 26.8 ml/m\S\2 SV(MOD-sp2) 75.6 ml SI(MOD-sp2) 40.0 ml/m\S\2 SV(MOD-bp) 62.0 ml SI(MOD-bp) 32.8 ml/m\S\2 SV(sp4-el) 55.6 ml SI(sp4-el) 29.4 ml/m\S\2 SV(sp2-el) 78.7 ml SI(sp2-el) 41.6 ml/m\S\2 Doppler Measurements and Calculations MV E max lala 82.5 cm/sec MV dec time 0.25 sec Ao V2 max 109.9 cm/sec Ao max PG 4.8 mmHg Ao max PG (full) 2.5 mmHg ANNA(V,A) 2.2 cm\S\2 ANNA(V,D) 2.2 cm\S\2 AI max lala 351.6 cm/sec AI max PG 49.4 mmHg AI dec slope 166.9 cm/sec\S\2 AI P1/2t 616.8 msec LV V1 max PG 2.3 mmHg LV V1 max 76.2 cm/sec PA V2 max 84.2 cm/sec PA max PG 2.8 mmHg PA acc slope 588.1 cm/sec\S\2 PA acc time 0.09 sec PI end-d lala 164.2 cm/sec TR max lala 232.1 cm/sec PA pr(Accel) 37.8 mmHg
--- NOTE | 2017-11-19 16:07 | Discharge Instructions ---
Discharge Instructions Date of Service Nov 19, 2017. Admission Reason for Admission: TIA Discharge Discharge Diagnosis / Problem: TIA Discharge Goals Goal(s): Improve disease control, Diagnostic testing, Therapeutic intervention Activity Recommendations Activity Limitations: resume your previous activity Shower/Bathe: no limitations . Instructions / Follow-Up Instructions / Follow-Up You were admitted for symptoms of difficulty with speech and seen by a Neurologist. It is thought that you had a Transient Ischemic Attack (TIA, or "mini stroke"). The Neurologist thinks it is best to be on Plavix every other day as an antiplatelet drug to prevent future TIAs or Strokes. You were also started on a low dose of atorvastatin (cholesterol pill) which should also decrease your risk for stroke. Your INR was still low here (meaning your blood is not thin enough) and because of your increased risk for stroke with having atrial fibrillation, you were given an injection of Lovenox as a blood thinner to keep your blood thin until your coumadin level gets to the right amount. Your coumadin dose was increased to 5mg daily and you should have your INR blood test checked in 1-[address] Byrd can then advise youon what dose to take after that. Risk Factors for Stroke: You can reduce your chances of stroke by working with your medical provider to adopt a healthy lifestyle. Some specific ways to lower your chance of stroke are: * If you are a smoker, now is the time to stop smoking cigarettes * If you are diabetic, improve the control of your blood sugars * Avoid excessive amounts of alcohol * Control high blood pressure * Lose weight if you are overweight * Be sure to lead an active lifestyle * Eat a healthy diet low in salt, cholesterol and fat You should know about other risk factors for stroke that you are unable to control. These include: * Age 55 years or older * Male gender * Certain racial groups: , or / * Family History of Stroke, Mini stroke or Heart Attack * Sickle Cell Disease Follow Up: It is important for you to keep your follow up appointments with your medical provider. Current Hospital Diet Patient's current hospital diet: Regular Diet Discharge Diet Recommended Diet: AHA Diet (Heart Healthy) Procedures Procedures Performed: CTA Head/Neck CXR CT Head Echocardiogram Pending Studies Studies pending at discharge: no Laboratory Results Hemoglobin A1c Test 11/19/17 06:08 Range/Units Estimated Average Glucose 117 mg/dl Hemoglobin A1c 5.7 H 4.5-5.6 % Lipid Panel Test 11/19/17 06:08 Range/Units Triglycerides Level 116 0-150 mg/dl Cholesterol Level 167 0-200 mg/dl HDL Cholesterol 51 mg/dl Cholesterol/HDL Ratio 3.3 LDL Cholesterol, Calculated 93 mg/dl Medical Emergencies . Who to Call and When: Medical Emergencies: Call 911 immediately if you experience any of the following warning signs and symptoms of Stroke: * Sudden numbness or weakness of the face, arm or leg, especially on one side of the body * Sudden confusion, trouble speaking or understanding * Sudden trouble seeing in one or both eyes * Sudden trouble walking, dizziness, loss of balance or coordination * Sudden severe headache with no cause Do not delay calling 911 if you experience any warning signs or symptoms of a stroke. Delay in seeking medical attention may affect what treatments can be given to you. . Non-Emergent Contact Non-Emergency issues call your: Primary Care Provider . . "Provider Documentation" section prepared by Bárbara Leach. . Stroke Core Measures Reason no t-PA for Stroke: Treatment not indicated Reason no antithrom by day 2: Treatment provided - N/A Reason no antithrom at D/C: Treatment provided - N/A Reason no statin at D/C: Treatment provided - N/A Reason no anticoag w/a fib: Treatment provided - N/A VTE Core Measure Inpt VTE Proph given/why not?: Enoxaparin (Lovenox)SQ, Warfarin (Coumadin)
[2017-11-19 16:09] VITALS: BP 157/80; PULSE 106; TEMP 36.8; O2SAT 95
--- NOTE | 2017-11-19 16:27 | Discharge Summary ---
Discharge Summary Date of Service Nov 19, 2017. 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 Mild aortic regurgitation. Trace pulmonic regurgitation. Mild - moderate mitral regurgitaion. Mild tricuspid regurgitation. Moderate aortic dilatation. Immunizations: Have You Had Influenza Vaccine: Yes Influenza Vaccine Date: Jul 19, 2013 History of Tetanus Vaccine?: No History of Pneumococcal: Yes Pneumococcal Date: Sep 19, 2003 History of Hepatitis B Vaccine: No Procedures: CTA Head/Neck CT Head CXR Echo: Mild left ventricular systolic dysfunction. * Basal inferior akinesis. * Anteroseptal hypokinesis - akinesis. * Mild right ventricular dilatation and systolic dysfunction. * Mild aortic regurgitation. * Trace pulmonic regurgitation. * Mild - moderate mitral regurgitaion. * Mild tricuspid regurgitation. * Moderate aortic dilatation. * -- Conclusions -- * Aortic valve sclerosis moderate, without significant aortic valvular stenosis. Procedure Details * A complete two-dimensional transthoracic echocardiogram was performed (2D, M-mode, Doppler and color flow Doppler). Left Ventricle * The left ventricle is normal in size. * There is normal left ventricular wall thickness. * Ejection Fraction = 45-50%. * Left ventricular systolic function is mildly reduced. * Basal inferior akinesis. Anteroseptal hypokineis - akinesis. Right Ventricle * The right ventricle is mildly dilated. * The right ventricular systolic function is mildly reduced. * The right ventricular systolic function is reduced as assessed by tricuspid annular plane systolic excursion (TAPSE) (TAPSE <1.6 cm). Atria * The left atrium is moderately dilated. * The right atrium is moderately dilated. * No ASD detected; PFO is not assessed. Mitral Valve * There is mild mitral annular calcification. * There is no mitral valve stenosis. * There is mild to moderate mitral regurgitation. Tricuspid Valve * The tricuspid valve is normal. * There is no tricuspid stenosis. * There is mild tricuspid regurgitation. * Right ventricular systolic pressure is normal. Aortic Valve * The aortic valve is trileaflet. * Aortic valve sclerosis moderate, without significant aortic valvular stenosis. * No hemodynamically significant valvular aortic stenosis. * Mild aortic regurgitation. Pulmonic Valve * The pulmonic valve is not well visualized. * There is no pulmonic valvular stenosis. * Trace pulmonic valvular regurgitation. Great Vessels * Moderate aortic root dilatation. Pericardium/Pleural * There is no pericardial effusion. Great Vessels * Normal inferior vena cava diameter and respiratory variation suggests normal central venous pressure. Consultations: Neurology Medication Reconciliation New Medications: Atorvastatin (Lipitor) 10 Mg Tab 10 MG PO QAM for 30 Days, #30 TAB 0 Refills Warfarin Sod (Coumadin) 5 Mg Tab 5 MG PO QPM for 30 Days, #30 TAB 0 Refills Clopidogrel Bisulfate (Clopidogrel) 75 Mg Tab 75 MG PO Q2D for 30 Days, #15 TAB 0 Refills First dose to start 11/20/17 Continued Medications: Acetaminophen Tab (Tylenol) 325 Mg Tab 650 MG PO TID Cholecalciferol (Vitamin D3) 2,000 Unit Cap 1 CAP PO QAM Dutasteride (Dutasteride) 0.5 Mg Cap 0.5 MG PO HS Furosemide (Furosemide) 20 Mg Tab 20 MG PO QAM Lisinopril (Prinivil) 5 Mg Tab 5 MG PO QAM Melatonin (Kp Melatonin) 3 Mg Tab 1 TAB PO HS Metoprolol Tartrate (Lopressor) 25 Mg Tab 25 MG PO BID Potassium Chloride (Potassium Chloride Er) 10 Meq Cap 10 MEQ PO QAM Senna (Senokot) 8.6 Mg Tab 1 TAB PO BID Sertraline HCl (Sertraline HCl) 25 Mg Tab 25 MG PO QAM Tramadol HCl (Tramadol HCl) 50 Mg Tab 50 MG PO Q8H Discontinued Medications: Warfarin Sodium (Warfarin Sodium) 4 Mg Tab 4 MG PO HS Discharge Exam Pt feels completely back to his baseline. No further speech issues. No weakness/ numbness. BPs elevated. Remains in A-fib on tele with rates as low as the 40s early in the AM, now awake and rates in the 70s. Did have a 6 beat run of VT on telemetry but was asymptomatic. Review of Systems: Constitutional: + fatigue (chronic) Eyes: No problem reported ENT: No problem reported Respiratory: No problem reported Cardiovascular: No problem reported Abdomen: No problem reported Musculoskeletal: No problem reported Genitourinary - Male: No problem reported Neurologic: No problem reported Psychiatric: No problem reported Endocrine: No problem reported Hematologic / Lymphatic: No problem reported Integumentary: No problem reported Physical Exam: General Appearance: WD/WN, no apparent distress Eyes: normal inspection, EOMI, sclerae normal ENT: hearing grossly normal, pharynx normal Neck: trachea midline Respiratory/Chest: lungs clear, normal breath sounds, no respiratory distress, no accessory muscle use Cardiovascular: no murmur, + irregularly irregular (with normal rate) Abdomen / GI: normal bowel sounds, non tender, soft Extremities: no calf tenderness, normal capillary refill, no pedal edema, normal range of motion 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 He was not a candidate for tPA as his symptoms had largely resolved by the time of arrival in the emergency department. He was admitted for TIA/CVA workup. Due to extreme claustrophobia, he could not undergo an MRI of the brain. He had a CT angiogram of the head and neck which did not show any significant stenoses. There is no evidence of intracranial hemorrhage. He had an echocardiogram which was largely unchanged from previous. His INR was subtherapeutic on admission as well as the next day. He was given bridging Lovenox of 1.5 mg/kg subcutaneously 1 and his Coumadin dose was increased to 5 mg daily. He was seen by neurology who thought that this was a TIA. He was started on Plavix 75 mg to be taken every other day as the patient has a history of gastrointestinal symptoms on aspirin. He was started on a low-dose of statin due to his age and excellent cholesterol profile and the increased risk of intracranial hemorrhage in the elderly with high-dose statins. He did have one 6 beat run of ventricular tachycardia which was asymptomatic. This is to be treated with his continued dose of metoprolol 25 mg p.o. twice daily as his ejection fraction is not low enough to warrant ICD placement. For his hypertension, he was continued on his metoprolol, lisinopril, furosemide , and potassium supplementation. He was doing very well by the following day and was stable for discharge back to [facility]. Total Time Spent: Greater than 30 minutes This includes examination of the patient, discharge planning, medication reconciliation, and communication with other providers. Discharge Instructions Please refer to the electronic Patient Visit Report (Discharge Instructions) for additional information. Follow-Up PCP within 1 week Neurology follow-up in 2 weeks Additional Copies To Alessia Dodson M.D.; Agustín Byrd M.D.
[2017-11-20] MEDS ORDERED: ATORVASTATIN 20 MG TAB PO SCH (09:00)
[2017-11-20] MEDS ORDERED: CLOPIDOGREL BISULFATE 75 MG TAB PO SCH (09:30)
--- NOTE | 2017-11-21 23:14 | Medical Student: [facility] ---
Consultation Date of Consultation: Nov 21, 2017. Requesting Physician: Dr. Amber Sanches Attending Physician: Dr. Dodson Reason for Consultation: Neurologic consultation for possible TIA in 87-year-old man. History of Present Illness Dr. Dodson first saw this patient in 2013 for an episode of expressive aphasia that lasted about 2 hours. Stroke scale was 0, he had no focal neurologic deficits or meningeal signs. At this time Mr. Jett already had an established history of A-fib with congestive heart failure. He was on Coumadin and followed by cardiology. CT showed no acute insults, and MRI was unattainable due to extreme claustrophobia by Mr. Jett. Dr. Dodson diagnosed Mr. Jett with a polyneuropathy and initiated aspirin therapy (81mg every other day) to prevent small vessel ischemia. He has a history of diverticulitis and partial colectomy in 2000. At some point he was taken off of aspirin, possibly due to GI irritation. Since then, he has been on Coumadin alone. In November of 2016, Mr. Jett fell and hit his head. CT scan of the head November 22 showed a small right tentorial bleeding consistent with some subdural hematoma. His neurosurgeons did not feel that surgery was necessary, and by December, the blood had resorbed. He was put back on Coumadin. No falls or trauma since. Around 1600 hours on November 18, Mr. Jett reports that he started to feel a little confused while using his computer, something with which he is very familiar. He had trouble performing certain functions on his computer. In addition to that, he started to feel tired and noticed that he had trouble speaking. He denies slurred or "garbled" speech. He reports that he knew what he wanted to say in his head, but either the wrong words came out, or no words came out. This resolved by the time he arrived to the ER from his home at [facility], within an hour. He reports that about 1 or 2 hours before his speech problem and confusion, he felt soreness and stiffness in his left ankle. He endorses suffering from soreness, swelling, and intermittent weakness in his legs for some amount of years. "It was that feeling like when you have your leg crossed too long and then take it off." He denies weakness or numbness. He endorses dizziness when bending over and getting back up quickly, but denies "room spinning" or passing out/falling over. He denies any acute changes in his vision or hearing. He denies anxiety or depression. Head CT was unremarkable for acute changes. CXR shows cardiomegaly. CTA of the head and neck revealed no significant large vessel disease. CBC revealed mild anemia. Chemistries, Lipids, and U/A were unremarkable. He denies any additional events or problems since admission. His speech is normal takling with him this morning. He has remained in A-fib with a heart rate ranging from the 50s to90s with a several runs of 3-6 PVC's. He denies chest pain, palpitations, shortness of breath. His blood pressure is elevated. Past Medical/Surgical History Medical History: (1) Epistaxis Status: Acute (2) TIA (transient ischemic attack) Status: Acute History of TIA 2013, as noted by an episode of expressive aphasia Congestive heart failure with cardiomegaly Atrial fibrillation, chronic, on Coumadin Benign prostatic hypertrophy Gastroesophageal reflux disease, diverticulitis/diverticulosis post partial colectomy (2000), irritable bowel syndrome Chronic venous insufficiency. Hypertension History of restless legs syndrome and insomnia Tonsillectomy Bilateral inguinal hernia repair Right hip surgery twice, 1984 and 1993 Left shoulder madhavi arthrodesis surgery Bilateral cataract repair Family History Father at 52 from suicide Mother at 88 from Stroke Social History Smoking Status: Never Smoker History of Alcohol Use: Yes (wine/manhattan-one daily) Drug Use: none Marital Status: Housing Status: lives alone (independent-living) Occupation Status: retired Review of Systems Constitutional: + weakness (left ankle (resolved)), No fever, No chills, No sweats Eyes: + diplopia ENT: + hearing loss Respiratory: No cough, No shortness of breath Cardiac: No chest pain, No palpitations Abdomen: No pain, No nausea, No vomiting, No diarrhea, No constipation, No GI bleeding Musculoskeletal: + joint pain Male : + nocturia more than once/night, No incontinence, No hematuria Neurologic: + weakness, No numbness/tingling Psychiatric: No depression symptoms, No anxiety Heme: No abnormal bleeding/bruising Allergies Coded Allergies: Celecoxib (Verified Allergy, Unknown, 11/22/16) Cephalexin (Verified Adverse Reaction, Intermediate, DYSPEPSIA, 11/22/16) Esomeprazole (Verified Adverse Reaction, Intermediate, GI SYMPTOMS, ) NSAIDs (Verified Adverse Reaction, Intermediate, esaphogeal lesions, ) Naproxen (Verified Adverse Reaction, Intermediate, DYSPEPSIA, 11/22/16) Sulfamethoxazole w/Trimethoprim (Verified Adverse Reaction, Intermediate, DYSPEPSIA, 11/22/16) Cephalosporins (Verified Adverse Reaction, Mild, NAUSEA, 11/22/16) Medications Reported Home Medications Medications Dose Route/Sig Max Daily Dose Days Date Category Dose Instructions Coumadin (Warfarin Sod) 5 Mg Tab 5 Mg PO QPM 30 11/19/17 Rx Lipitor (Atorvastatin Calcium) 10 Mg Tab 10 Mg PO QAM 30 11/19/17 Rx Clopidogrel (Clopidogrel Bisulfate) 75 Mg Tab 75 Mg PO Q2D 30 11/19/17 Rx First dose to start 11/20/17 Prinivil (Lisinopril) 5 Mg Tab 5 Mg PO QAM 11/18/17 Reported Tramadol HCl 50 Mg Tab 50 Mg PO Q8H 11/18/17 Reported Vitamin D3 (Cholecalciferol) 2,000 Unit Cap 1 Cap PO QAM 11/18/17 Reported Senokot (Senna) 8.6 Mg Tab 1 Tab PO BID 11/18/17 Reported Potassium Chloride Er (Potassium Chloride) 10 Meq Cap 10 Meq PO QAM 11/18/17 Reported Lopressor (Metoprolol Tartrate) 25 Mg Tab 25 Mg PO BID 11/18/17 Reported Kp Melatonin (Melatonin) 3 Mg Tab 1 Tab PO HS 11/18/17 Reported Furosemide 20 Mg Tab 20 Mg PO QAM 11/18/17 Reported Dutasteride 0.5 Mg Cap 0.5 Mg PO HS 11/18/17 Reported Sertraline HCl 25 Mg Tab 25 Mg PO QAM 11/18/17 Reported Tylenol (Acetaminophen) 325 Mg Tab 650 Mg PO TID 09/15/13 Reported Physical Exam Last Vital Signs Documentation Date Time Temp Pulse Resp B/P (MAP) Pulse Ox O2 Delivery O2 Flow Rate FiO2 11/19/17 16:09 36.8 106 18 95 Room Air 11/19/17 11:56 157/80 (105) General Appearance: WD/WN, no apparent distress Eyes: bilateral eyes PERRL, bilateral eyes EOMI Musculoskeletal: normal strength (5/5 throughout), normal tone, pertinent finding (decreased ROM in shoulders bilaterally) Skin: warm/dry General: Mr. Jett was sitting up in bed on his own power when we entered the room. He wasn't in any apparent distress. He was pleasant and agreeable. Speech was normal. No tremors. Normal tone and muscle bulk. Neurologic Exam: patient is right handed MMSE: Alert and oriented to time and place. Short and group home memory were intact. He was able to perform simple calculations and write a full sentence. He is very sharp. Cranial Nerves: I- not tested II,III- Visual gastelum seem normal. Direct and consensual pupillary light reflexes intact. III, IV, - EOM intact without nystagmus. V- facial sensation in V1, V2, V3 VII- Eyebrow raise and eyelid close strong bilaterally. No facial droop. Symmetric smile VIII- Chronic hearing loss bilaterally. Has hearing aids. IX, X- palate elevates symmetrically. No problems swallowing observing him eat breakfast XI- Normal strength in lateral head rotation and shoulder shrug XII- Tongue protrusion midline and normal strength on lateral deviation bilaterally. Sensation: Sensation intact in all 4 limbs Strength: Deltoid, biceps, triceps, wrist flexors and extenders, intrinsic hand muscles/interossei, hand test pilot, hip flexors, quadriceps, hamstrings, tibialis, gastrocnemius, toe extensors 5/5 strength bilaterally. Reflexes: Biceps, brachioradialis, triceps, patellar, Achilles reflexes absent bilaterally. Toes downgoing with plantar stimulation bilaterally Cerebellum: No ataxia with [id number] testing. No drift with outstretched arms. Heel to gary without difficulty Gait: Stands and walks with a wide stance. Walks with help of a walker at home. Laboratory Results Test 11/18/17 17:39 11/18/17 17:40 11/18/17 18:15 11/19/17 06:08 Range/Units Bedside Prothrombin Time INR 2.3 0.9-1.1 Bedside Glucose 93 70-99 mg/dl Activated Partial Thromboplast Time 34.1 21.0-31.0 SECONDS Partial Thromboplastin Ratio 1.3 Magnesium Level 2.3 1.8-2.4 mg/dl Total Creatine Kinase 178 39-308 U/L Creatine Kinase MB 3.9 0.5-3.6 ng/ml Creatine Kinase MB Ratio 2.2 0-3.0 Troponin I 0.039 0-0.045 ng/ml Urine Color YELLOW Urine Appearance CLEAR CLEAR Urine pH 5.0 4.5-7.5 Urine Specific [place] 1.015 1.000-1.030 Urine Protein NEG NEG Urine Glucose (UA) NEG NEG Urine Ketones NEG NEG Urine Occult Blood NEG NEG Urine Nitrite NEG NEG Urine Bilirubin NEG NEG Urine Urobilinogen NEG NEG Urine Leukocyte Esterase NEG NEG White Blood Count 6.14 4.8-10.8 K/uL Red Blood Count 3.93 4.7-6.1 M/uL Hemoglobin 12.1 14.0-18.0 g/dL Hematocrit 37.3 42-52 % Mean Corpuscular Volume 94.9 80-100 fL Mean Corpuscular Hemoglobin 30.8 25-34 pg Mean Corpuscular Hemoglobin Concent 32.4 32-36 g/dl Platelet Count 133 130-400 K/uL Mean Platelet Volume 8.8 7.4-10.4 fL Neutrophils (%) (Auto) 68.3 % Lymphocytes (%) (Auto) 20.4 % Monocytes (%) (Auto) 8.6 % Eosinophils (%) (Auto) 1.8 % Basophils (%) (Auto) 0.7 % Neutrophils # (Auto) 4.20 1.4-6.5 K/uL Lymphocytes # (Auto) 1.25 1.2-3.4 K/uL Monocytes # (Auto) 0.53 0.11-0.59 K/uL Eosinophils # (Auto) 0.11 0-0.5 K/uL Basophils # (Auto) 0.04 0-0.2 K/uL RDW Standard Deviation 46.9 36.4-46.3 fL RDW Coefficient of Variation 13.5 11.5-14.5 % Immature Granulocyte % (Auto) 0.2 % Immature Granulocyte # (Auto) 0.01 0.00-0.02 K/uL Sodium Level 136 136-145 mmol/L Potassium Level 4.4 3.5-5.1 mmol/L Chloride Level 102 98-107 mmol/L Carbon Dioxide Level 31 21-32 mmol/L Anion Gap 3.0 3-11 mmol/L Blood Urea Nitrogen 18 7-18 mg/dl Creatinine 1.20 0.60-1.40 mg/dl Est Creatinine Clear Calc Drug Dose 42.6 ml/min Estimated GFR () 62.2 Estimated GFR (Non- 53.7 BUN/Creatinine Ratio 15.0 10-20 Random Glucose 83 70-99 mg/dl Estimated Average Glucose 117 mg/dl Hemoglobin A1c 5.7 4.5-5.6 % Calcium Level 8.2 8.5-10.1 mg/dl Triglycerides Level 116 0-150 mg/dl Cholesterol Level 167 0-200 mg/dl HDL Cholesterol 51 mg/dl LDL Cholesterol, Calculated 93 mg/dl VLDL Cholesterol, Calculated 23 mg/dl Cholesterol/HDL Ratio 3.3 Test 11/19/17 09:44 Range/Units Prothrombin Time 18.6 9.0-12.0 SECONDS Prothromb Time International Ratio 1.8 0.9-1.1 Assessment & Plan Impression 1. Expressive aphasia consistent with transient ischemic attack from small vessel ischemic disease vs stroke Mr. Jett had no focal neurologic findings, meningeal signs, or encephalopathy. His NIH stroke scale score was 0. CT revealed no bleeding, but MRI is unobtainable due to patient's extreme claustrophobia. This still leads me away from stroke and toward TIA. Although he has longstanding hypertension and a-fib, he also has never used tobacco.. He has a history of TIA and being on coumadin, which protects from large vessel disease, but not small vessel. An episode of expressive aphasia is actually more consistent of a transient brain attack rather than slurred speech/dysarthria. 2. Chronic A-fib: Stable 3. Generalized polyneuropathy causing sensory ataxia. 4. Hypertension Plan 1. Would like to obtain MRI but it doesn't seem possible with his claustrophobia. Does not need another CT. Echocardiogram is pending. 2. Does not tolerate aspirin. Initiate Clopidogrel 75 mg every other day for small vessel protection 3. Continue to monitor 4. Maintain mean arterial pressure of 100.
== END 2017-11-19 16:15 | disposition home or self-care (01) ==
LOC: C.EDB 17:23 → C.2T 20:56 → ENRESERV 21:06
PROVIDERS: ADMIT Hospitalist; ATTEND Family Medicine
DX: G45.9 Transient cerebral ischemic attack, unspecified (principal); K21.9 Gastro-esophageal reflux disease without esophagitis; I11.0 Hypertensive heart disease with heart failure; F32.9 Major depressive disorder, single episode, unspecified; G62.9 Polyneuropathy, unspecified; G25.81 Restless legs syndrome; I87.2 Venous insufficiency (chronic) (peripheral); I50.22 Chronic systolic (congestive) heart failure; I48.2 Chronic atrial fibrillation; N40.0 Benign prostatic hyperplasia without lower urinary tract symptoms; Z79.899 Other long term (current) drug therapy; Z88.1 Allergy status to other antibiotic agents; Z88.8 Allergy status to other drugs, medicaments and biological substances; Z88.2 Allergy status to sulfonamides; Z79.01 Long term (current) use of anticoagulants; Z79.82 Long term (current) use of aspirin

== ENCOUNTER → 2017-11-23 | Outpatient (CLI) | payer BC ==
[~2017-11-23] MED LIST changes: +CHOL2000 PO; +CMD5 PO; +DUTA1CAP3 PO; +LISI5TAB PO; +LPR25 PO; +LPT10 PO; -LSN5 PO; +LSX20 PO; +MELA1TAB5 PO; -MULTTAB PO; +PLV75 PO; +POTA1CAP2 PO; -POTA20TA16 PO; +SENN-61 PO; +SERT1TAB88 PO; -TPRSR/100 PO; -ULT/50 PO; +ULT50 PO; -WARF5TAB90 PO
[2017-11-23 09:05] LABS: INR 2.5 (0.9-1.1)
== END ==
LOC: C.LABFOXMH 08:36
PROVIDERS: ATTEND Internal Medicine
DX: Z79.01 Long term (current) use of anticoagulants (principal)

== ENCOUNTER → 2017-12-14 | Outpatient (CLI) | payer BC ==
[2017-12-14 09:21] LABS: INR 2.3 (0.9-1.1)
== END ==
LOC: C.LABFOXMH 08:39
PROVIDERS: ATTEND Internal Medicine
DX: Z79.01 Long term (current) use of anticoagulants (principal)

== ENCOUNTER → 2018-01-04 | Outpatient (CLI) | payer BC ==
[2018-01-04 09:31] LABS: HEMATOCRIT 34.8 % (42-52); HEMOGLOBIN 11.2 g/dL (14.0-18.0); MEAN CELL VOLUME 96.1 fL (80-100); MEAN CORPUSCULAR HEMOGLOBIN 30.9 pg (25-34); MEAN CORPUSCULAR HGB CONC 32.2 g/dl (32-36); MEAN PLATELET VOLUME 8.2 fL (7.4-10.4); PLATELET COUNT 140 K/uL (130-400); RED CELL DISTRIBUTION WIDTH SD 52.4 fL (36.4-46.3); WHITE BLOOD COUNT 6.03 K/uL (4.8-10.8)
[2018-01-04 09:37] LABS: INR 2.6 (0.9-1.1)
[2018-01-04 09:42] LABS: BLOOD UREA NITROGEN 21 mg/dl (7-18); CALCIUM 8.4 mg/dl (8.5-10.1); CARBON DIOXIDE 27 mmol/L (21-32); CREATININE 1.21 mg/dl (0.60-1.40); GLUCOSE 82 mg/dl (70-99); POTASSIUM 4.5 mmol/L (3.5-5.1); SODIUM 138 mmol/L (136-145)
== END | disposition home or self-care (01) ==
LOC: C.LABFOXMH 08:49
PROVIDERS: ATTEND Internal Medicine
DX: R60.9 Edema, unspecified (principal); Z79.01 Long term (current) use of anticoagulants

== ENCOUNTER → 2018-02-01 | Outpatient (CLI) | payer BC ==
[2018-02-01 08:22] LABS: HEMOGLOBIN 11.6 g/dL (14.0-18.0); MEAN CELL VOLUME 97.3 fL (80-100); MEAN CORPUSCULAR HEMOGLOBIN 31.4 pg (25-34); MEAN CORPUSCULAR HGB CONC 32.2 g/dl (32-36); MEAN PLATELET VOLUME 8.4 fL (7.4-10.4); PLATELET COUNT 144 K/uL (130-400); RED CELL DISTRIBUTION WIDTH CV 14.7 % (11.5-14.5); RED CELL DISTRIBUTION WIDTH SD 52.5 fL (36.4-46.3); WHITE BLOOD COUNT 6.89 K/uL (4.8-10.8)
[2018-02-01 08:37] LABS: INR 2.5 (0.9-1.1)
== END | disposition home or self-care (01) ==
LOC: C.LABFOXMH 07:57
PROVIDERS: ATTEND Internal Medicine
DX: Z79.01 Long term (current) use of anticoagulants (principal)

== ENCOUNTER → 2018-03-01 | Outpatient (CLI) | payer BC | LOC: C.LABFOXAE 08:06 | PROVIDERS: ATTEND Internal Medicine | DX: Z79.01 Long term (current) use of anticoagulants (principal) ==

== ENCOUNTER 2018-03-05 13:18 | Emergency (ER) | payer BC ==
[~2018-03-05] VITALS: Ht 172.7 cm; Wt 80.0 kg
[2018-03-05 13:24] VITALS: TEMP 36.8; O2SAT 98; Ht 172.7 cm; Wt 80.0 kg
[2018-03-05 13:49] LABS: BASO % 0.4 %; BASO ABS # 0.04 K/uL (0-0.2); EOS % 0.9 %; EOS ABS # 0.09 K/uL (0-0.5); HEMATOCRIT 36.9 % (42-52); IG# 0.02 K/uL (0.00-0.02); LYMPH ABS # 1.07 K/uL (1.2-3.4); MEAN CELL VOLUME 97.4 fL (80-100); MEAN CORPUSCULAR HEMOGLOBIN 31.7 pg (25-34); MEAN CORPUSCULAR HGB CONC 32.5 g/dl (32-36); MEAN PLATELET VOLUME 8.8 fL (7.4-10.4); MONO ABS # 0.49 K/uL (0.11-0.59); NEUT % 82.5 %; NEUT ABS # 8.05 K/uL (1.4-6.5); PLATELET COUNT 148 K/uL (130-400); RED CELL DISTRIBUTION WIDTH CV 13.8 % (11.5-14.5); RED CELL DISTRIBUTION WIDTH SD 49.4 fL (36.4-46.3); WHITE BLOOD COUNT 9.76 K/uL (4.8-10.8)
[2018-03-05 14:00] LABS: CALCIUM 8.8 mg/dl (8.5-10.1); CREATININE 1.39 mg/dl (0.60-1.40); POTASSIUM 4.3 mmol/L (3.5-5.1)
[2018-03-05 14:05] LABS: INR 2.9 (0.9-1.1); PTT PATIENT 33.3 SECONDS (21.0-31.0)
[2018-03-05] MEDS ORDERED: PSYL0.524 PO (14:21)
--- NOTE | 2018-03-05 14:27 | DIAGNOSTIC IMAGING REPORT ---
CHEST ONE VIEW PORTABLE HISTORY: Evaluate Fever/Sepsis COMPARISON: Chest 11/18/2017. FINDINGS: No pneumothorax. No pleural effusions. The heart remains enlarged. Mild diffuse interstitial thickening persists. No new focal lung consolidations to suggest pneumonia. No evidence for pulmonary edema. Left shoulder prosthesis. IMPRESSION: No significant change compared to the prior study. No acute process. Stable cardiomegaly. Electronically signed by: Frederick Gutierrez M.D. 03/05/2018 2:26 PM Dictated Date/Time: 03/05/2018 2:24 PM
--- NOTE | 2018-03-05 15:43 | EMERGENCY ROOM VISIT NOTE ---
History Report prepared by Rafa: Torres Rubio Under the Supervision of: Dr. Jean Park D.O. First contact with patient: 13:34 Chief Complaint: CHEST PAIN Stated Complaint: CHEST PAIN Nursing Triage Summary: Patient having mild dull bilateral chest pain since this AM. Patient stated that, "I thought I may have slept funny." PMH: A fib History of Present Illness The patient is a 87 year old male who presents to the Emergency Room with complaints of worsening chest pain beginning a few hours ago. He noticed his pain upon waking up today. The patient states that his pain is correlated with his heart beat. He also complains of nausea, and diaphoresis. His pain is worsened with breathing. The patient has a history of A-fib (x5 years) for which he is on Coumadin and Plavix. He has a history of two prior TIA's. He denies abdominal pain. Source of History: patient Onset: A few hours ago Position: chest Timing: worsening Modifying Factors (Worsening): breathing Associated Symptoms: + diaphoresis, + nausea, No abdominal pain Review of Systems See HPI for pertinent positives & negatives. A total of 10 systems reviewed and were otherwise negative. Past Medical & Surgical Medical Problems: (1) Atrial fibrillation (2) Reflux (3) Restless leg syndrome Family History Patient reports no known family medical history. Social History Smoking Status: Never Smoker Alcohol Use: none Drug Use: none Marital Status: Housing Status: lives alone Occupation Status: retired Current/Historical Medications Scheduled Acetaminophen Tab (Tylenol), 650 MG PO TID Atorvastatin (Lipitor), 10 MG PO QAM Cholecalciferol (Vitamin D3), 1 CAP PO QAM Clopidogrel Bisulfate (Clopidogrel), 75 MG PO Q2D Dutasteride (Dutasteride), 0.5 MG PO HS Furosemide (Furosemide), 20 MG PO QAM Lisinopril (Prinivil), 5 MG PO QAM Melatonin (Kp Melatonin), 1 TAB PO HS Metoprolol Tartrate (Lopressor), 25 MG PO BID Potassium Chloride (Potassium Chloride Er), 10 MEQ PO QAM Psyllium (Metamucil), 1 CAP PO UD Senna (Senokot), 1 TAB PO BID Sertraline HCl (Sertraline HCl), 25 MG PO QAM Tramadol HCl (Tramadol HCl), 25 MG PO Q8H Warfarin Sod (Coumadin), 5 MG PO QPM Allergies Coded Allergies: Celecoxib (Verified Allergy, Unknown, 03/05/18) Cephalexin (Verified Adverse Reaction, Intermediate, DYSPEPSIA, 03/05/18) Esomeprazole (Verified Adverse Reaction, Intermediate, GI SYMPTOMS, ) NSAIDs (Verified Adverse Reaction, Intermediate, esaphogeal lesions, ) Naproxen (Verified Adverse Reaction, Intermediate, DYSPEPSIA, 03/05/18) Sulfamethoxazole w/Trimethoprim (Verified Adverse Reaction, Intermediate, DYSPEPSIA, 03/05/18) Cephalosporins (Verified Adverse Reaction, Mild, NAUSEA, 03/05/18) Physical Exam Vital Signs Date Time Temp Pulse Resp B/P (MAP) Pulse Ox O2 Delivery O2 Flow Rate FiO2 03/05/18 14:37 76 20 170/95 90 Room Air 03/05/18 13:42 59 03/05/18 13:24 36.8 62 18 163/79 94 Room Air 03/05/18 13:24 98 Room Air 03/05/18 13:24 94 Room Air Physical Exam CONSTITUTIONAL/VITAL SIGNS: Reviewed / noted above. GENERAL: Non-toxic in appearance. INTEGUMENTARY: Warm, dry, and [place]. HEAD: Normocephalic. EYES: without scleral icterus or trauma. ENT/OROPHARYNX: clear and moist. LYMPHADENOPATHY/NECK: Is supple without lymphadenopathy or meningismus. RESPIRATORY: Lungs clear and equal. CARDIOVASCULAR: Regular rate and rhythm. GI/ABDOMEN: Soft and nontender. No organomegaly or pulsatile mass. No rebound or guarding. Normal bowel sounds. EXTREMITIES: Warm and well perfused. BACK: No CVA tenderness. NEUROLOGICAL: Intact without focal deficits. PSYCHIATRIC: normal affect. MUSCULOSKELETAL: Normally developed with good muscle tone. Medical Decision & Procedures ER Provider Diagnostic Interpretation: Radiology results as stated below per my review and radiologist interpretation: CHEST ONE VIEW PORTABLE FINDINGS: No pneumothorax. No pleural effusions. The heart remains enlarged. Mild diffuse interstitial thickening persists. No new focal lung consolidations to suggest pneumonia. No evidence for pulmonary edema. Left shoulder prosthesis. IMPRESSION: No significant change compared to the prior study. No acute process. Stable cardiomegaly. Electronically signed by: Frederick Gutierrez M.D. 03/05/2018 2:26 PM Laboratory Results 03/05/18 13:12 Red Blood Count 3.79, Mean Corpuscular Volume 97.4, Mean Corpuscular Hemoglobin 31.7, Mean Corpuscular Hemoglobin Concent 32.5, Mean Platelet Volume 8.8, Neutrophils (%) (Auto) 82.5, Lymphocytes (%) (Auto) 11.0, Monocytes (%) (Auto) 5.0, Eosinophils (%) (Auto) 0.9, Basophils (%) (Auto) 0.4, Neutrophils # (Auto) 8.05, Lymphocytes # (Auto) 1.07, Monocytes # (Auto) 0.49, Eosinophils # (Auto) 0.09, Basophils # (Auto) 0.04 03/05/18 13:12 Test 03/05/18 13:12 White Blood Count 9.76 K/uL (4.8-10.8) Red Blood Count 3.79 M/uL (4.7-6.1) Hemoglobin 12.0 g/dL (14.0-18.0) Hematocrit 36.9 % (42-52) Mean Corpuscular Volume 97.4 fL (80-100) Mean Corpuscular Hemoglobin 31.7 pg (25-34) Mean Corpuscular Hemoglobin Concent 32.5 g/dl (32-36) Platelet Count 148 K/uL (130-400) Mean Platelet Volume 8.8 fL (7.4-10.4) Neutrophils (%) (Auto) 82.5 % Lymphocytes (%) (Auto) 11.0 % Monocytes (%) (Auto) 5.0 % Eosinophils (%) (Auto) 0.9 % Basophils (%) (Auto) 0.4 % Neutrophils # (Auto) 8.05 K/uL (1.4-6.5) Lymphocytes # (Auto) 1.07 K/uL (1.2-3.4) Monocytes # (Auto) 0.49 K/uL (0.11-0.59) Eosinophils # (Auto) 0.09 K/uL (0-0.5) Basophils # (Auto) 0.04 K/uL (0-0.2) RDW Standard Deviation 49.4 fL (36.4-46.3) RDW Coefficient of Variation 13.8 % (11.5-14.5) Immature Granulocyte % (Auto) 0.2 % Immature Granulocyte # (Auto) 0.02 K/uL (0.00-0.02) Prothrombin Time 30.3 SECONDS (9.0-12.0) Prothromb Time International Ratio 2.9 (0.9-1.1) Activated Partial Thromboplast Time 33.3 SECONDS (21.0-31.0) Partial Thromboplastin Ratio 1.3 Anion Gap 4.0 mmol/L (3-11) Est Creatinine Clear Calc Drug Dose 35.5 ml/min Estimated GFR () 52.1 Estimated GFR (Non- 44.9 BUN/Creatinine Ratio 15.0 (10-20) Calcium Level 8.8 mg/dl (8.5-10.1) Troponin I 0.029 ng/ml (0-0.045) Laboratory results as stated above per my review. ECG Per My Interpretation Indication: chest pain Rate (beats per minute): 69 Rhythm: atrial fibrillation Findings: other (No PVCs. No ST elevations. ) ED Course 1340: Previous medical records were reviewed. The patient was evaluated in room A2. A complete history and physical examination was performed. 1545: On reevaluation, the patient is resting comfortably. I discussed the results and findings with the patient. He verbalized agreement of the treatment plan. He was discharged home. Medical Decision The differential was considered includes acute myocardial infarction, acute coronary syndrome, myocarditis, pericarditis, pericardial effusions/tamponade, esophageal perforation, thoracic aortic dissection, pulmonary embolism, pneumonia, pneumothorax, pancreatitis, shingles, acute cholecystitis, perforated abdominal viscus. This is an 87-year-old male who presents to the ED with a chief complaint of some chest discomfort when he awoke this morning. He states that it seems to correlate with his heart beating or with deep breathing. The patient has a history of A. fib and is chronically on Coumadin. His INR today is 2.9. His physical exam was normal and his vital signs are normal. His EKG showed A. fib with a rate of 69 without acute ischemic changes. CBC is unremarkable and a chest x-ray did not show acute disease. PRP and troponin were negative. The patient was told the results of the test. He is felt to be stable for discharge. Medication Reconcilliation Current Medication List: was personally reviewed by me Blood Pressure Screening Patient's blood pressure: Elevated blood pressure Blood pressure disposition: Referred to PCP Impression Primary Impression: Chest wall pain Scribe Attestation The scribe's documentation has been prepared under my direction and personally reviewed by me in its entirety. I confirm that the note above accurately reflects all work, treatment, procedures, and medical decision making performed by me. Departure Information Dispostion Home / Self-Care Referrals Jen Mendoza (PCP) Patient Instructions My [facility] Additional Instructions Chest x-ray today as well as blood work did not reveal any acute abnormalities with regards to your heart or lungs. Your INR today is 2.9. Follow-up with your doctor for further care and evaluation in 2-5 days if symptoms persist. Return to the emergency department for worsening or new symptoms or any concerns. You have been examined and treated today on an emergency basis only. This is not a substitute for, or an effort to provide, complete comprehensive medical care. It is impossible to recognize and treat all injuries or illnesses in a single emergency department visit. It is therefore important that you follow up closely with your doctor. Call as soon as possible for an appointment.
[2018-03-05 16:09] VITALS: BP 176/98; PULSE 70; O2SAT 96
== END 2018-03-05 16:13 | disposition home or self-care (01) ==
LOC: C.EDA 13:18 → EDBD 13:18 → C.EDA 16:13
DX: R07.89 Other chest pain (principal); I48.91 Unspecified atrial fibrillation; Z86.73 Personal history of transient ischemic attack (TIA), and cerebral infarction without residual deficits; K21.9 Gastro-esophageal reflux disease without esophagitis; G25.81 Restless legs syndrome; Z79.82 Long term (current) use of aspirin; Z79.01 Long term (current) use of anticoagulants; Z79.899 Other long term (current) drug therapy; Z88.2 Allergy status to sulfonamides; Z88.1 Allergy status to other antibiotic agents; Z88.8 Allergy status to other drugs, medicaments and biological substances

== ENCOUNTER → 2018-05-03 | Outpatient (CLI) | payer BC ==
[~2018-05-03] MED LIST changes: +DUTA1CAP17 PO; -DUTA1CAP3 PO; +PSYL0.524 PO
[2018-05-03 09:52] LABS: INR 2.4 (0.9-1.1)
== END | disposition home or self-care (01) ==
LOC: C.LABFOXMH 08:56
PROVIDERS: ATTEND Internal Medicine
DX: Z79.01 Long term (current) use of anticoagulants (principal)

== ENCOUNTER → 2018-05-13 | Outpatient (CLI) | payer BC ==
[2018-05-13 09:37] LABS: INR 2.6 (0.9-1.1)
== END | disposition home or self-care (01) ==
LOC: C.LABFOXMH 08:36
PROVIDERS: ATTEND Internal Medicine
DX: Z51.81 Encounter for therapeutic drug level monitoring (principal); Z79.01 Long term (current) use of anticoagulants

== ENCOUNTER 2018-10-05 14:21 | Inpatient (IN) ==
[2018-10-05 15:41] LABS: Basophils # (auto) 0.01 K/uL (0-0.2); Basophils % (auto) 0.1 %; Eosinophils # (auto) 0.17 K/uL (0-0.5); Eosinophils % (auto) 1.6 %; Hematocrit (blood only) 31.7 % (42-52); Hemoglobin 10.3 g/dL (14.0-18.0); Immature Granulocytes # (auto) 0.02 K/uL (0.00-0.02); Immature Granulocytes % (auto) 0.2 %; Lymphocytes # (auto) 1.43 K/uL (1.2-3.4); Lymphocytes % (auto) 13.4 %; Mean Corpuscular Hgb Conc 32.5 g/dL (32-36); Mean Corpuscular Volume 99.4 fL (80-100); Mean Platelet Volume 7.8 fL (7.4-10.4); Monocytes # (auto) 0.62 K/uL (0.11-0.59); Monocytes % (auto) 5.8 %; Neutrophils # (auto) 8.39 K/uL (1.4-6.5); Neutrophils % (auto) 78.9 %; Platelet Count 234 K/uL (130-400); RDW Coefficient of Variation 17.1 % (11.5-14.5); RDW Standard Deviation 60.9 fL (36.4-46.3); Red Blood Count 3.19 M/uL (4.7-6.1); White Blood Count 10.64 K/uL (4.8-10.8)
[2018-10-05 15:53] LABS: Albumin Level 2.7 gm/dl (3.4-5.0); BUN Creatinine Ratio 19.4 (10-20); Calcium 8.3 mg/dl (8.5-10.1); Creatinine Clr Calc Pharmacy 36.8 ml/min; Est GFR (African American) 47.9; Est GFR (Non-African American) 41.4; Potassium 4.5 mmol/L (3.5-5.1)
--- NOTE | 2018-10-05 15:54 | XRay Report ---
XR chest 1V portable HISTORY: 88 years-old Male Chest Pain acute atypical chest pain COMPARISON: Chest radiograph 09/15/2018 TECHNIQUE: Portable AP view of the chest FINDINGS: Cardiac silhouette is enlarged, unchanged. Calcification of the thoracic aortic arch. No pneumothorax , pleural effusion, overt pulmonary edema or lobar airspace consolidation. Degenerative changes of th e right shoulder and spine. Left shoulder arthroplasty. IMPRESSION: Cardiomegaly without acute process. The above report was generated using voice recognition software. It may contain grammatical, syntax o r spelling errors. Electronically signed by: Jordan Nieves M.D. 10/05/2018 3:53 PM
[2018-10-05 16:01] LABS: Albumin Globulin Ratio 0.7 (0.9-2); Bilirubin,Total 1.4 mg/dl (0.1-1); Creatine Kinase MB 2.2 ng/ml (0.5-3.6); Globulin 3.8 gm/dl (2.5-4.0); Total Protein 6.5 gm/dl (6.4-8.2); Troponin I 0.151 ng/ml (0-0.045)
[2018-10-05 16:02] LABS: INR 3.4 (0.9-1.1); Partial Thromboplastin Ratio 1.5; Partial Thromboplastin Time 39.2 Seconds (21.0-31.0); Prothrombin Time 31.7 Seconds (9.0-12.0)
--- NOTE | 2018-10-05 17:03 | Ultrasound Report ---
BILATERAL LOWER EXTREMITY VENOUS DOPPLER HISTORY: Acute pain and swelling of the bilateral lower extremities eval for DVT, hematoma COMPARISON STUDY: None. FINDINGS: There is normal compressibility, flow, and augmentation within the bilateral lower extremit y deep venous systems. Subcutaneous edema of the lower legs limits evaluation of the calf vessels. IMPRESSION: No sonographic evidence of deep venous thrombosis within the right or left lower extremity. Electronically signed by: Jordan Nieves M.D. 10/05/2018 5:02 PM
--- NOTE | 2018-10-05 17:05 | Ultrasound Report ---
US arterial duplex LE CLINICAL HISTORY: 88 years-old Male presenting with left calf redness and swelling, clinical concern for arterial insufficiency. TECHNIQUE: Real-time grayscale and color and spectral Doppler ultrasound imaging of the left lower ex tremity arteries was performed. Measurements calculated based on NASCET criteria. COMPARISON: None. FINDINGS: LEFT: Common femoral artery: Significant atherosclerotic plaque without significant narrowing. Triphasic wa veforms. Peak systolic velocity (PSV) 71 cm/s. Deep femoral artery: Atherosclerotic plaque at the origin without significant narrowing. Triphasic wa veforms. PSV 69 cm/s. Superficial femoral artery: Mild atherosclerotic plaque without significant narrowing. Triphasic wave forms. PSV C2-87 cm/s. Popliteal artery: Mild atherosclerotic plaque without significant narrowing. Monophasic waveforms. PS V 102 cm/s. Posterior tibial artery: Patent. Monophasic waveforms. PSV 38-99 cm/s. Peroneal artery: Patent. Monophasic waveforms. PSV 31-93 cm/s. Anterior tibial artery: Patent. Monophasic waveforms. PSV 49-257 cm/s. Dorsalis pedis: Patent. Monophasic waveforms. PSV 146 cm/s. ANKLE/BRACHIAL INDEX (ABNER): Brachial: Right: mmHg, Left: mmHg. Ankle (Posterior tibial): Right: mmHg, Left: mmHg. Ankle (Dorsalis pedis): Right: mmHg, Left: mmHg. ABNER: Right: , Left: . Reference ranges: Normal Ankle/Brachial Index (ABNER) 1.0-1.4; 0.91-0.99 borderline; < or = 0.9 abnormal (0.7-0.89 mild, 0.51-0.69 moderate, < or = 0.5 severe peripheral arterial disease). Normal Toe/Brachial Index (TBI) > or = 0.6; < 0.6 abnormal (0.34-0.59 mild, 0.12-0.34 moderate, < or = 0.11 severe peripheral arterial disease). IMPRESSION: 1. Focal elevated velocities in the distal anterior tibial artery and dorsalis pedis artery suggest hemodynamically significant stenosis at these sites. Diffuse atherosclerotic plaque in the remainder of the vessels. 2. Unable to perform ankle-brachial indices. Electronically signed by: Felix Bowling M.D. 10/05/2018 5:04 PM
--- NOTE | 2018-10-05 17:08 | XRay Report ---
XR tibia fibula LT 2V CLINICAL HISTORY: 88 years-old Male presenting with TRAUMA. TECHNIQUE: Frontal and lateral views of the left lower leg were obtained. COMPARISON: None. FINDINGS: Knee joint and ankle mortise grossly congruent. Osteopenia suspected. No acute fracture or malalignme nt. Mild degenerative changes of the knee and ankle joints. Atherosclerosis. Mild diffuse subcutaneou s edema. IMPRESSION: No acute osseous injury. Electronically signed by: Felix Bowling M.D. 10/05/2018 5:06 PM
--- NOTE | 2018-10-05 18:49 | Emergency Department Note ---
History of Present Illness General Chief complaint: Leg Pain/Injury Time Seen by Provider: 10/05/18 15:23 Source: patient, RN notes reviewed and old records reviewed Mode of arrival: EMS Limitations: no limitations History of Present Illness This patient comes in as described above. He comes in after feeling pain in his legs mostly left is been going on he has been falling. He has swelling on both of his legs mostly on the left with significant bruising. He denies any fever or chills. Denies shortness of breath or chest pain. No focal numbness or weakness except for his tingling fingertips get tingly at times bilaterally. No abdominal pain. No lightheadedness or dizziness or blood or melena stool. No syncope. He hurts in both of his feet mostly in the left. He is on Plavix and Coumadin. Home Medications Home Medications Medication Instructions Recorded Confirmed Type acetaminophen 325 mg tablet 650 mg PO Q4H PRN tab 08/08/18 10/05/18 History atorvastatin 10 mg tablet 10 mg PO QAM 08/08/18 10/05/18 History cholecalciferol (vitamin D3) 2,000 2,000 units PO QAM 08/08/18 10/05/18 History unit capsule clopidogrel 75 mg tablet 75 mg PO Q2D 08/08/18 10/05/18 History dutasteride 0.5 mg capsule 0.5 mg PO QAM 08/08/18 10/05/18 History lisinopril 5 mg tablet 5 mg PO QAM 08/08/18 10/05/18 History melatonin 3 mg tablet 3 mg PO HS 08/08/18 10/05/18 History potassium chloride ER 10 mEq 10 meq PO QAM 08/08/18 10/05/18 History capsule,extended release sennosides 8.6 mg tablet 8.6 mg PO BID PRN 08/08/18 10/05/18 History sertraline 25 mg tablet 25 mg PO QAM 08/08/18 10/05/18 History tramadol 50 mg tablet 50 mg PO TID tab 08/08/18 10/05/18 History warfarin 4 mg tablet 4 mg PO PM 08/08/18 10/05/18 History metoprolol tartrate 25 mg PO BID 09/15/18 10/05/18 History bisacodyl [Dulcolax (bisacodyl)] 10 mg AL Q48H PRN 10/05/18 10/05/18 History calcium carbonate [Tums] 500 mg PO UD PRN 10/05/18 10/05/18 History magnesium hydroxide [Milk of 30 ml PO Q48H PRN 10/05/18 10/05/18 History Magnesia] sodium phosphates [Fleet Enema] 1 dose AL Q72H PRN 10/05/18 10/05/18 History torsemide 20 mg PO QAM PRN 10/05/18 10/05/18 History Allergies Allergy/AdvReac Type Severity Reaction Status Date / Time celecoxib Allergy Unknown Verified 10/05/18 16:20 Bactrim AdvReac Intermediate DYSPEPSIA Verified 03/05/18 14:22 cephalexin AdvReac Intermediate DYSPEPSIA Verified 10/05/18 16:20 esomeprazole AdvReac Intermediate GI SYMPTOMS Verified 10/05/18 16:20 naproxen AdvReac Intermediate DYSPEPSIA Verified 10/05/18 16:20 NSAIDS (Non-Steroidal AdvReac Intermediate esaphogeal Verified 10/05/18 16:20 Anti-Inflamma lesions sulfamethoxazole AdvReac Intermediate DYSPEPSIA Verified 10/05/18 16:20 trimethoprim AdvReac Intermediate DYSPEPSIA Verified 10/05/18 16:20 Cephalosporins AdvReac Mild NAUSEA Verified 10/05/18 16:20 Past Med/Surg History Medical History Atrial fibrillation (Acute) Pneumothorax (Acute) TIA (transient ischemic attack) (Acute) Acid reflux (Chronic) Surgical History H/O right inguinal hernia repair (Acute) History of colon resection (Acute) History of hemiarthroplasty of shoulder (Acute) History of total right hip replacement (Acute) Hx of tonsillectomy (Acute) Social History Current Living Situation: Personal Care Facility current occupational status: retired Other Information That Helps Us Care for You: No Feels Safe at Home: Yes Safety Concerns: Feels Safe At This Time Smoking Status: Unknown if ever smoked Hx Alcohol Use: No Hx Substance Use: No Beliefs That Will Affect Care: None Preferred Language: Syriac Communication Ability: Effective Pattern Molder Required: No Immunizations: He is on both Plavix and Coumadin for history of TIAs and A. fib which appears chronic. Denies history of DVT Review of Systems See HPI for pertinent positives & negatives. and A total of 10 systems reviewed and were otherwise negative Physical Exam Vital Signs Vital Signs - 24 hr 10/05/18 14:13 10/05/18 15:01 10/05/18 15:28 Temperature 37.2 C Temperature Source Oral Sepsis Recent Fever Within 48 Hours No Sepsis New/Unexplained Change in Mental Status No Sepsis Action Taken by Nursing No Action Required Pulse Rate 71 71 75 Pulse Rate [Right Brachial] Pulse Rhythm Regular Pulse Strength Normal Respiratory Rate 18 13 25 H Respiratory Effort / Characteristics Non-Labored Spontaneous Respiratory Depth Normal Respiratory Pattern Regular Blood Pressure 117/63 115/76 Blood Pressure [Right Arm] Blood Pressure Mean 81 89 Blood Pressure Mean [Right Arm] Blood Pressure Position Lying Blood Pressure Position [Right Arm] Pulse Oximetry 94 Oxygen Delivery Method Room Air 10/05/18 15:30 10/05/18 15:31 10/05/18 15:40 Temperature Temperature Source Sepsis Recent Fever Within 48 Hours Sepsis New/Unexplained Change in Mental Status Sepsis Action Taken by Nursing Pulse Rate 72 75 67 Pulse Rate [Right Brachial] Pulse Rhythm Pulse Strength Respiratory Rate 19 24 20 Respiratory Effort / Characteristics Respiratory Depth Respiratory Pattern Blood Pressure 137/98 Blood Pressure [Right Arm] Blood Pressure Mean 111 Blood Pressure Mean [Right Arm] Blood Pressure Position Blood Pressure Position [Right Arm] Pulse Oximetry 98 Oxygen Delivery Method Room Air 10/05/18 15:50 10/05/18 17:56 10/05/18 18:00 Temperature Temperature Source Sepsis Recent Fever Within 48 Hours Sepsis New/Unexplained Change in Mental Status Sepsis Action Taken by Nursing Pulse Rate 73 82 85 Pulse Rate [Right Brachial] Pulse Rhythm Pulse Strength Respiratory Rate 21 17 27 H Respiratory Effort / Characteristics Respiratory Depth Respiratory Pattern Blood Pressure Blood Pressure [Right Arm] Blood Pressure Mean Blood Pressure Mean [Right Arm] Blood Pressure Position Blood Pressure Position [Right Arm] Pulse Oximetry 100 Oxygen Delivery Method 10/05/18 18:10 10/05/18 18:20 10/05/18 18:30 Temperature Temperature Source Sepsis Recent Fever Within 48 Hours Sepsis New/Unexplained Change in Mental Status Sepsis Action Taken by Nursing Pulse Rate 87 76 71 Pulse Rate [Right Brachial] Pulse Rhythm Pulse Strength Respiratory Rate 32 H 20 13 Respiratory Effort / Characteristics Respiratory Depth Respiratory Pattern Blood Pressure Blood Pressure [Right Arm] Blood Pressure Mean Blood Pressure Mean [Right Arm] Blood Pressure Position Blood Pressure Position [Right Arm] Pulse Oximetry Oxygen Delivery Method 10/05/18 18:40 10/05/18 18:50 10/05/18 18:57 Temperature Temperature Source Sepsis Recent Fever Within 48 Hours Sepsis New/Unexplained Change in Mental Status Sepsis Action Taken by Nursing Pulse Rate 70 87 78 Pulse Rate [Right Brachial] Pulse Rhythm Pulse Strength Respiratory Rate 16 21 20 Respiratory Effort / Characteristics Respiratory Depth Respiratory Pattern Blood Pressure 165/85 H Blood Pressure [Right Arm] Blood Pressure Mean 111 Blood Pressure Mean [Right Arm] Blood Pressure Position Blood Pressure Position [Right Arm] Pulse Oximetry 93 Oxygen Delivery Method 10/05/18 19:00 10/05/18 21:18 Temperature 37.1 C Temperature Source Oral Sepsis Recent Fever Within 48 Hours Sepsis New/Unexplained Change in Mental Status Sepsis Action Taken by Nursing Pulse Rate 81 Pulse Rate [Right Brachial] 89 Pulse Rhythm Pulse Strength Respiratory Rate 16 18 Respiratory Effort / Characteristics Non-Labored Spontaneous Respiratory Depth Normal Respiratory Pattern Regular Blood Pressure Blood Pressure [Right Arm] 171/85 H Blood Pressure Mean Blood Pressure Mean [Right Arm] 113 Blood Pressure Position Blood Pressure Position [Right Arm] Lying Pulse Oximetry Oxygen Delivery Method General: Well developed well nourished ill-appearing older male who is hard of hearing but answers questions appropriately and in no acute distress, breathing comfortably on room air. Normal speech HEENT: Normal cephalic atraumatic. Pupils are equal round and reactive to light. Extraocular movements are intact. Oropharynx is pink with moist mucous membranes. No swelling of the mouth lips or tongue. Neck: Supple with a midline trachea. No meningeal signs or stiffness, no JVD or bruits. No Stridor. Chest: Clear to auscultation bilaterally. No wheezes or rhonchi. No increased work of breathing. Heart: Regular rate and rhythm without murmurs or gallops. Abdomen: Soft nontender, nondistended without rebound guarding or rigidity. Extremities: No cyanosis clubbing or edema. He has bruises on both of his legs mostly on the left the left calf is significant swollen compared to the right he does have palpable distal pulses bilaterally and good capillary refill. His legs are not particularly warm. Spine/Back. Non tender to palpation. No CVA tenderness Skin: Good turgor without rashes. Neurologic exam: Cranial nerves two through 12 are intact. Motor and sensation are intact and symmetrical throughout. Medical Decision Making Differential Diagnosis Differential diagnosis includes: Cardiac disease, anemia, DVT, arterial insufficiency, neurologic process, infection, electrolyte or metabolic abnormality, trauma Medical Records Attestation: I reviewed the patient's medical records. Home Medications Current Medication List: was personally reviewed by me Laboratory Data Attestation: I reviewed the patient's lab results. Result diagrams: 10/05/18 14:45 10/05/18 14:45 Lab Results 10/05/18 10/05/18 10/05/18 Range/Units 14:45 14:45 14:45 WBC 10.64 (4.8-10.8) K/uL RBC 3.19 L (4.7-6.1) M/uL Hgb 10.3 L (14.0-18.0) g/dL Hct 31.7 L (42-52) % MCV 99.4 (80-100) fL MCH 32.3 (25-34) pg MCHC 32.5 (32-36) g/dL RDW Std Deviation 60.9 H (36.4-46.3) fL RDW Coeff of Michelle 17.1 H (11.5-14.5) % Plt Count 234 (130-400) K/uL MPV 7.8 (7.4-10.4) fL Immature Gran % (Auto) 0.2 % Neut % (Auto) 78.9 % Lymph % (Auto) 13.4 % [place] % (Auto) 5.8 % Eos % (Auto) 1.6 % Baso % (Auto) 0.1 % Immature Gran # (Auto) 0.02 (0.00-0.02) K/uL Neut # (Auto) 8.39 H (1.4-6.5) K/uL Lymph # (Auto) 1.43 (1.2-3.4) K/uL [place] # (Auto) 0.62 H (0.11-0.59) K/uL Eos # (Auto) 0.17 (0-0.5) K/uL Baso # (Auto) 0.01 (0-0.2) K/uL PT 31.7 H (9.0-12.0) Seconds INR 3.4 H (0.9-1.1) APTT 39.2 H (21.0-31.0) Seconds PTT Ratio 1.5 Sodium 133 L (136-145) mmol/L Potassium 4.5 (3.5-5.1) mmol/L Chloride 97 L (98-107) mmol/L Carbon Dioxide 27 (21-32) mmol/L Anion Gap 8.0 (3-11) BUN 29 H (7-18) mg/dl Creatinine 1.48 H (0.6-1.4) mg/dl Est Cr Clr Drug Dosing 36.8 ml/min Est GFR ( Amer) 47.9 Est GFR (Non-Af Amer) 41.4 BUN/Creatinine Ratio 19.4 (10-20) Glucose 108 H (70-99) mg/dl Calcium 8.3 L (8.5-10.1) mg/dl Total Bilirubin 1.4 H (0.1-1) mg/dl AST 41 H (15-37) U/L ALT 38 (12-78) U/L Alkaline Phosphatase 93 (45-117) U/L Total Creatine Kinase 81 (39-308) U/L CK-MB (CK-2) 2.2 (0.5-3.6) ng/ml CK/CKMB % Calc 2.7 (0-3.0) Troponin I 0.151 H* (0-0.045) ng/ml Total Protein 6.5 (6.4-8.2) gm/dl Albumin 2.7 L (3.4-5.0) gm/dl Globulin 3.8 (2.5-4.0) gm/dl Albumin/Globulin Ratio 0.7 L (0.9-2) Lipase 300 (73-393) U/L Imaging Data Radiologist's Impression: Bilateral lower extremity ultrasoundsnegative for DVT. Left lower extremity arterial ultrasoundthere was some high velocities concerning for high-grade stenosis ECG Data Attestation: I personally reviewed and interpreted this ECG as follows: Indication: weakness Rate (beats per minute): 76 Rhythm: atrial fibrillation Findings: + other (Poor R wave progression) Comparison ECG Date: from (09/15/2018) Change: no significant change Blood Pressure Blood Pressure Findings: Normal blood pressure MDM Narrative This patient comes in after having bilateral leg pain and weakness. More on the left. He is bruised and apparently has been falling a lot. He has good capillary refill and distal pulses. There is no ulceration. No definite cellulitis. IV access established and blood work was obtained. his troponin is mildly elevated although his EKG shows chronic A. fib. He did have bilateral lower external ultrasounds that were negative for DVT. There is no mention of any hematomas. Also he had a lower extreme arterial ultrasound on the left which shows some high velocities with likely stenosis but he is getting distal flow at this point. He is on Coumadin as well. He has dropped his hemoglobin. I do think he needs to be admitted/observe. I am worried about his instability and the fact that he is on 2 blood thinners. I alsothinks he has lost a significant amount of blood into his leg with extensive bruising he may also need further vascular consultation. I have consulted Dr. Haddad to see him in the ER for these measures. Impression & Plan Weakness, Elevated troponin, Anemia, Arterial insufficiency of lower extremity Discharge Plan Visit Data *Final* Discharge Date/Time: 10/05/18 19:20 Chief Complaint: Leg Pain/Injury ED Provider: Robe Franco Discharge Problem: Weakness, Elevated troponin, Anemia, Arterial insufficiency of lower extremity Patient Disposition: Admitted As Inpatient Discharge Instructions Interventions: ED Discharge Assessment Last Done: 10/05/18 19:20
--- NOTE | 2018-10-05 19:34 | History & Physical Report ---
Date of Service October 05, 2018 Assessment & Plan (1) Elevated troponin: The patient will be admitted to telemetry for serial cardiac enzymes, serial EKG's, cardiac rhythm monitoring and a 2-D echocardiogram with Dopplers. Consult cardiology Present on Admission?: Yes (2) Cellulitis of lower extremity: Continue vancomycin IV and Zosyn IV begun in the ED. Present on Admission?: Yes (3) Arterial insufficiency of lower extremity: Lower extremity arterial Dopplers show significant stenosis in the distal anterior tibial and dorsalis pedis artery. Patient is already on warfarin and Plavix. Cellulitis is also worse on the side. If healing is delayed, could consider a vascular consult. Present on Admission?: Yes (4) Anemia: Likely of chronic disease, and on chronic anticoagulation, however, do Hemoccults. Present on Admission?: Yes (5) Atrial fibrillation: Continue metoprolol tartrate 25 mg p.o. twice daily. Present on Admission?: Yes (6) TIA (transient ischemic attack): History of atrial fibrillation. Continue Plavix and warfarin. Present on Admission?: Yes (7) Restless leg syndrome: RLS plus arterial insufficiency likely contributing to patient's symptoms. Likely an element of peripheral neuropathy as well. Continue anticoagulation, antiplatelet therapy, tramadol, could consider the addition of gabapentin or Lyrica. Present on Admission?: Yes (8) Hyperlipidemia LDL goal <70: Continue atorvastatin 10 mg daily Present on Admission?: Yes History of Present Illness Chief Complaint: The patient presents to the emergency department with a history of recent falls, with chronic pain in both feet, left worse than right. Primary Care Provider: [facility] Patient is an 88-year-old male with a past medical history including atrial fibrillation, TIAs, peripheral arterial disease, restless leg syndrome, and hypertension, who has been falling recently due to pain in his feet bilaterally , left greater than right. He has been taking all of his medications as directed. He has not had any recent injuries. Allergies Allergy/AdvReac Type Severity Reaction Status Date / Time celecoxib Allergy Unknown Verified 10/05/18 16:20 Bactrim AdvReac Intermediate DYSPEPSIA Verified 03/05/18 14:22 cephalexin AdvReac Intermediate DYSPEPSIA Verified 10/05/18 16:20 esomeprazole AdvReac Intermediate GI SYMPTOMS Verified 10/05/18 16:20 naproxen AdvReac Intermediate DYSPEPSIA Verified 10/05/18 16:20 NSAIDS (Non-Steroidal AdvReac Intermediate esaphogeal Verified 10/05/18 16:20 Anti-Inflamma lesions sulfamethoxazole AdvReac Intermediate DYSPEPSIA Verified 10/05/18 16:20 trimethoprim AdvReac Intermediate DYSPEPSIA Verified 10/05/18 16:20 Cephalosporins AdvReac Mild NAUSEA Verified 10/05/18 16:20 Home Medications Home Medications Medication Instructions Recorded Confirmed Type acetaminophen 325 mg tablet 650 mg PO Q4H PRN tab 08/08/18 10/05/18 History atorvastatin 10 mg tablet 10 mg PO QAM 08/08/18 10/05/18 History cholecalciferol (vitamin D3) 2,000 2,000 units PO QAM 08/08/18 10/05/18 History unit capsule clopidogrel 75 mg tablet 75 mg PO Q2D 08/08/18 10/05/18 History dutasteride 0.5 mg capsule 0.5 mg PO QAM 08/08/18 10/05/18 History lisinopril 5 mg tablet 5 mg PO QAM 08/08/18 10/05/18 History melatonin 3 mg tablet 3 mg PO HS 08/08/18 10/05/18 History potassium chloride ER 10 mEq 10 meq PO QAM 08/08/18 10/05/18 History capsule,extended release sennosides 8.6 mg tablet 8.6 mg PO BID PRN 08/08/18 10/05/18 History sertraline 25 mg tablet 25 mg PO QAM 08/08/18 10/05/18 History tramadol 50 mg tablet 50 mg PO TID tab 08/08/18 10/05/18 History warfarin 4 mg tablet 4 mg PO PM 08/08/18 10/05/18 History metoprolol tartrate 25 mg PO BID 09/15/18 10/05/18 History bisacodyl [Dulcolax (bisacodyl)] 10 mg TN Q48H PRN 10/05/18 10/05/18 History calcium carbonate [Tums] 500 mg PO UD PRN 10/05/18 10/05/18 History magnesium hydroxide [Milk of 30 ml PO Q48H PRN 10/05/18 10/05/18 History Magnesia] sodium phosphates [Fleet Enema] 1 dose TN Q72H PRN 10/05/18 10/05/18 History torsemide 20 mg PO QAM PRN 10/05/18 10/05/18 History Past Med/Surg History Medical History Atrial fibrillation (Acute) Pneumothorax (Acute) TIA (transient ischemic attack) (Acute) Acid reflux (Chronic) Surgical History H/O right inguinal hernia repair (Acute) History of colon resection (Acute) History of hemiarthroplasty of shoulder (Acute) History of total right hip replacement (Acute) Hx of tonsillectomy (Acute) Social History Current Living Situation: Personal Care Facility current occupational status: retired Other Information That Helps Us Care for You: No Feels Safe at Home: Yes Safety Concerns: Feels Safe At This Time Smoking Status: Unknown if ever smoked Hx Alcohol Use: No Hx Substance Use: No Beliefs That Will Affect Care: None Preferred Language: Hungarian Communication Ability: Effective Director Of Enrollment Required: No Review of Systems The patient denies cough,sore throat, fevers, chills, sweats, nausea, vomiting, diarrhea , constipation, abdominal pain, pelvic pain, blood in urine or stool, dysuria, urinary frequency or urgency, headache, memory loss, loss of consciousness. generalized arthralgias or myalgias, back or neck pain, or night sweats. The review of systems is otherwise negative other than for that already noted above, and at least 10 systems have been reviewed. Physical Exam 2 Vital Signs (Past 24 Hours): Last Vital Signs Temp 37.2 C 10/05/18 14:13 Pulse 71 10/05/18 14:13 Resp 18 10/05/18 14:13 BP 117/63 10/05/18 14:13 Pulse Ox 94 10/05/18 14:13 Physical Exam: The patient is awake, alert and oriented 3, normocephalic and atraumatic, lying in bed and in no acute distress. HEENT--PERRL, EOMI, mucous membranes and oropharynx dry. Neck--supple. No JVD. No bruits. Thyroid normal, trachea midline, no adenopathy. Heart--normal S1 and S2. No murmurs, rubs or gallops. Lungs--clear bilaterally, no respiratory distress, no accessory muscle use. Abdomen--normal bowel sounds and soft. Nontender. Nondistended, no hernias or masses, no organomegaly. Extremities--decreased distal pulses bilaterally. Moderately severe erythema left greater than right, with small drainage on left. Dermatologic--skin with cellophane type texture. Neurologic--cranial nerves II through XII grossly intact. Rheumatologic--normal range of motion. Psychiatric--normal affect. Results & Data Laboratory Results Laboratory Results WBC 10.64 K/uL (4.8-10.8) 10/05/18 14:45 RBC 3.19 M/uL (4.7-6.1) L 10/05/18 14:45 Hgb 10.3 g/dL (14.0-18.0) L 10/05/18 14:45 Hct 31.7 % (42-52) L 10/05/18 14:45 MCV 99.4 fL (80-100) 10/05/18 14:45 MCH 32.3 pg (25-34) 10/05/18 14:45 MCHC 32.5 g/dL (32-36) 10/05/18 14:45 RDW Std Deviation 60.9 fL (36.4-46.3) H 10/05/18 14:45 RDW Coeff of Michelle 17.1 % (11.5-14.5) H 10/05/18 14:45 Plt Count 234 K/uL (130-400) 10/05/18 14:45 MPV 7.8 fL (7.4-10.4) 10/05/18 14:45 Immature Gran % (Auto) 0.2 % 10/05/18 14:45 Neut % (Auto) 78.9 % 10/05/18 14:45 Lymph % (Auto) 13.4 % 10/05/18 14:45 [place] % (Auto) 5.8 % 10/05/18 14:45 Eos % (Auto) 1.6 % 10/05/18 14:45 Baso % (Auto) 0.1 % 10/05/18 14:45 Immature Gran # (Auto) 0.02 K/uL (0.00-0.02) 10/05/18 14:45 Neut # (Auto) 8.39 K/uL (1.4-6.5) H 10/05/18 14:45 Lymph # (Auto) 1.43 K/uL (1.2-3.4) 10/05/18 14:45 [place] # (Auto) 0.62 K/uL (0.11-0.59) H 10/05/18 14:45 Eos # (Auto) 0.17 K/uL (0-0.5) 10/05/18 14:45 Baso # (Auto) 0.01 K/uL (0-0.2) 10/05/18 14:45 PT 31.7 Seconds (9.0-12.0) H 10/05/18 14:45 INR 3.4 (0.9-1.1) H 10/05/18 14:45 APTT 39.2 Seconds (21.0-31.0) H 10/05/18 14:45 PTT Ratio 1.5 10/05/18 14:45 Sodium 133 mmol/L (136-145) L 10/05/18 14:45 Potassium 4.5 mmol/L (3.5-5.1) 10/05/18 14:45 Chloride 97 mmol/L (98-107) L 10/05/18 14:45 Carbon Dioxide 27 mmol/L (21-32) 10/05/18 14:45 Anion Gap 8.0 (3-11) 10/05/18 14:45 BUN 29 mg/dl (7-18) H 10/05/18 14:45 Creatinine 1.48 mg/dl (0.6-1.4) H 10/05/18 14:45 Est Cr Clr Drug Dosing 36.8 ml/min 10/05/18 14:45 Est GFR ( Amer) 47.9 10/05/18 14:45 Est GFR (Non-Af Amer) 41.4 10/05/18 14:45 BUN/Creatinine Ratio 19.4 (10-20) 10/05/18 14:45 Glucose 108 mg/dl (70-99) H 10/05/18 14:45 Calcium 8.3 mg/dl (8.5-10.1) L 10/05/18 14:45 Total Bilirubin 1.4 mg/dl (0.1-1) H 10/05/18 14:45 AST 41 U/L (15-37) H 10/05/18 14:45 ALT 38 U/L (12-78) 10/05/18 14:45 Alkaline Phosphatase 93 U/L (45-117) 10/05/18 14:45 Total Creatine Kinase 81 U/L (39-308) 10/05/18 14:45 CK-MB (CK-2) 2.2 ng/ml (0.5-3.6) 10/05/18 14:45 CK/CKMB % Calc 2.7 (0-3.0) 10/05/18 14:45 Troponin I 0.151 ng/ml (0-0.045) H* 10/05/18 14:45 Total Protein 6.5 gm/dl (6.4-8.2) 10/05/18 14:45 Albumin 2.7 gm/dl (3.4-5.0) L 10/05/18 14:45 Globulin 3.8 gm/dl (2.5-4.0) 10/05/18 14:45 Albumin/Globulin Ratio 0.7 (0.9-2) L 10/05/18 14:45 Lipase 300 U/L (73-393) 10/05/18 14:45 Nasal Screen MRSA (PCR) Negative (Negative) 10/05/18 20:30 Diagnostic Findings [place] [phone] XRay Report Patient: YINA GREENE Date: 10/05/18 MR#: [id number]: [id number] Acct ID:[id number]: RAFAEL EID Date: [address] Zip: [place] [address] Age: 88Location: ED Sex: M Room/Bed: Att Phy: Diagnosis: LEG PAIN Verónica Phy: William Mendoza Date: 10/05/18 Fam Phy: Agustín Byrd M.D.Interpreting Phy: Daryn Nieves Admit Phy: Ordering Phy: Robe Franco M.D. cc: ~ XR chest 1V portable HISTORY: 88 years-old Male Chest Pain acute atypical chest pain COMPARISON: Chest radiograph 09/15/2018 TECHNIQUE: Portable AP view of the chest FINDINGS: Cardiac silhouette is enlarged, unchanged. Calcification of the thoracic aortic arch. No pneumothorax, pleural effusion, overt pulmonary edema or lobar airspace consolidation. Degenerative changes of the right shoulder and spine. Left shoulder arthroplasty. IMPRESSION: Cardiomegaly without acute process. The above report was generated using voice recognition software. It may contain grammatical, syntax or spelling errors. Electronically signed by: Jordan Nieves M.D. 10/05/2018 3:53 PM Dictated: 10/05/18 1552 Transcribed: 10/05/18 1552 [place] [phone] Ultrasound Report Patient: YINA GREENE Date: 10/05/18 MR#: [id number]: [address] Acct ID:[id number]: RAFAEL EID Date: 1930City Zip: [place] [address] Age: 88Location: ED Sex: M Room/Bed: Att Phy: Diagnosis: LEG PAIN Verónica Phy: William Mendoza Date: 10/05/18 Fam Phy: Agustín Byrd M.D.Interpreting Phy: Felix Bowling MD Admit Phy: Ordering Phy: Robe Franco M.D. cc: ~ US arterial duplex LE LT CLINICAL HISTORY: 88 years-old Male presenting with left calf redness and swelling, clinical concern for arterial insufficiency. TECHNIQUE: Real-time grayscale and color and spectral Doppler ultrasound imaging of the left lower extremity arteries was performed. Measurements calculated based on NASCET criteria. COMPARISON: None. FINDINGS: LEFT: Common femoral artery: Significant atherosclerotic plaque without significant narrowing. Triphasic waveforms. Peak systolic velocity (PSV) 71 cm/s. Deep femoral artery: Atherosclerotic plaque at the origin without significant narrowing. Triphasic waveforms. PSV 69 cm/s. Superficial femoral artery: Mild atherosclerotic plaque without significant narrowing. Triphasic waveforms. PSV C2-87 cm/s. Popliteal artery: Mild atherosclerotic plaque without significant narrowing. Monophasic waveforms. PSV 102 cm/s. Posterior tibial artery: Patent. Monophasic waveforms. PSV 38-99 cm/s. Peroneal artery: Patent. Monophasic waveforms. PSV 31-93 cm/s. Anterior tibial artery: Patent. Monophasic waveforms. PSV 49-257 cm/s. Dorsalis pedis: Patent. Monophasic waveforms. PSV 146 cm/s. ANKLE/BRACHIAL INDEX (ABNER): Brachial: Right: mmHg, Left: mmHg. Ankle (Posterior tibial): Right: mmHg, Left: mmHg. Ankle (Dorsalis pedis): Right: mmHg, Left: mmHg. ABNER: Right: , Left: . Reference ranges: Normal Ankle/Brachial Index (ABNER) 1.0-1.4; 0.91-0.99 borderline; < or = 0.9 abnormal (0.7-0.89 mild, 0.51-0.69 moderate, < or = 0.5 severe peripheral arterial disease). Normal Toe/Brachial Index (TBI) > or = 0.6; < 0.6 abnormal (0.34-0.59 mild, 0.12 -0.34 moderate, < or = 0.11 severe peripheral arterial disease). IMPRESSION: 1. Focal elevated velocities in the distal anterior tibial artery and dorsalis pedis artery suggest hemodynamically significant stenosis at these sites. Diffuse atherosclerotic plaque in the remainder of the vessels. 2. Unable to perform ankle-brachial indices. Electronically signed by: Felix Bowling M.D. 10/05/2018 5:04 PM Dictated: 10/05/18 1700 Transcribed: 10/05/18 1700 [phone] Ultrasound Report Patient: YINA GREENE Date: 10/05/18 MR#: [id number]: [address] Acct ID:[id number]: RAFAEL EID [facility]: 1930[facility] Zip[facility] [place] [address] Age: 88Location: ED Sex: M Room/Bed: Att Phy: Diagnosis: LEG PAIN Verónica Phy: William Mendoza Date: 10/05/18 [facility] Phy: Agustín Byrd M.D.Interpreting Phy: Daryn Nieves Admit Phy: Ordering Phy: Robe Franco M.D. cc: ~ BILATERAL LOWER EXTREMITY VENOUS DOPPLER HISTORY: Acute pain and swelling of the bilateral lower extremities eval for DVT, hematoma COMPARISON STUDY: None. FINDINGS: There is normal compressibility, flow, and augmentation within the bilateral lower extremity deep venous systems. Subcutaneous edema of the lower legs limits evaluation of the calf vessels. IMPRESSION: No sonographic evidence of deep venous thrombosis within the right or left lower extremity. Electronically signed by: Jordan Nieves M.D. 10/05/2018 5:02 PM Dictated: 10/05/181699 Transcribed: 10/05/181699 [facility] [place] [phone] XRay Report Patient: YINA GREENE Date: 10/05/18 MR#: [id number]: [address] Acct ID:[id number]: RAFAEL EID Date: [address] Zip: [place] [address] Age: 88Location: ED Sex: M Room/Bed: Att Phy: Diagnosis: LEG PAIN Verónica Phy: William Mendoza Date: 10/05/18 Fam Phy: Agustín Byrd M.D.Interpreting Phy: Felix Bowling MD Admit Phy: Ordering Phy: Robe Franco M.D. cc: ~ XR tibia fibula LT 2V CLINICAL HISTORY: 88 years-old Male presenting with TRAUMA. TECHNIQUE: Frontal and lateral views of the left lower leg were obtained. COMPARISON: None. FINDINGS: Knee joint and ankle mortise grossly congruent. Osteopenia suspected. No acute fracture or malalignment. Mild degenerative changes of the knee and ankle joints. Atherosclerosis. Mild diffuse subcutaneous edema. IMPRESSION: No acute osseous injury. Electronically signed by: Felix Bowling M.D. 10/05/2018 5:06 PM Dictated: 10/05/181704 Transcribed: 10/05/181704 Code Status & VTE Plan Code Status DO NOT RESUSCITATE VTE Prophylaxis Plan VTE Prophylaxis will be ordered: Yes _ (1) Anemia Anemia type: unspecified type Bone marrow failure anemia type: Chronic kidney disease stage: Folate deficiency anemia type: Hemolytic anemia type: Iron deficiency anemia type: Other causes of anemia: Vitamin B12 deficiency anemia type: Qualified Code(s): D64.9 - Anemia, unspecified
[2018-10-05] MEDS ORDERED: ALUMINUM/MAGNESIUM SUSP 30 ML UDC PO PRN (20:25)
[2018-10-05] MEDS ORDERED: SOD PHOSPHATE/SOD BIPHOSPHATE ENEMA 132 ML BTL PR PRN (20:25)
[2018-10-05] MEDS ORDERED: CALCIUM CARBONATE 500 MG CHEWABLE TAB PO PRN (20:25)
[2018-10-05] MEDS ORDERED: ACETAMINOPHEN 1000 MG/100 ML IV IV PRN (20:25)
[2018-10-05] MEDS ORDERED: NITROGLYCERIN SL 0.4 MG/TAB TAB SL PRN (20:25)
[2018-10-05] MEDS ORDERED: POLYETHYLENE (MIRALAX) 17 GM PACK PO PRN (20:25)
[2018-10-05] MEDS ORDERED: VANCOMYCIN HCL 1,000 MG/270 ML BAG IV STA (20:25)
[2018-10-05] MEDS ORDERED: PIPERACILL/TAZOBAC CONSULT ACTIVE PRN (20:25)
[2018-10-05] MEDS ORDERED: PIPERACILLIN/TAZOBACTAM 3.375 GM in DEXTROSE 5% 100 ML IV SCH (20:25)
[2018-10-05] MEDS ORDERED: MAGNESIUM HYDROXIDE SUSP 30 ML UDC PO PRN (20:25)
[2018-10-05] MEDS ORDERED: SENNA 8.6 MG TAB PO PRN (20:25)
[2018-10-05] MEDS ORDERED: VANCOMYCIN CONSULT ACTIVE PRN (20:25)
[2018-10-05] MEDS ORDERED: BISACODYL 10 MG SUPP PR PRN (20:25)
[2018-10-05] MEDS ORDERED: ACETAMINOPHEN 325 MG TAB PO PRN (20:25)
[2018-10-05] MEDS ORDERED: PIPERACILLIN/TAZOBACTAM 3.375 GM in DEXTROSE 5% 100 ML IV ONE (21:00)
[2018-10-05] MEDS ORDERED: VANCOMYCIN HCL 2,000 MG in SODIUM CHLORIDE 0.9% 500 ML IV ONE (21:00)
[2018-10-05] MEDS ORDERED: NON-FORMULARY MEDICATION (Melatonin [Melatonin] 3 MG) PO SCH (21:00)
[2018-10-05] MEDS: TRAMADOL HCL 50 MG TABLET PO SCH (23:00)
[2018-10-05] MEDS: METOPROLOL TARTRATE 25 MG TAB PO SCH (23:01)
[2018-10-06] MEDS: PIPERACILLIN/TAZOBACTAM 3.375 GM in DEXTROSE 5% 100 ML IV SCH ×3 (01:41→18:00)
[2018-10-06] MEDS: MoRPHine SULFATE 2 MG/ML CARP IV PRN (04:18)
[2018-10-06 06:48] LABS: Basophils # (auto) 0.02 K/uL (0-0.2); Basophils % (auto) 0.2 %; Eosinophils # (auto) 0.26 K/uL (0-0.5); Eosinophils % (auto) 2.6 %; Hemoglobin 9.6 g/dL (14.0-18.0); Immature Granulocytes # (auto) 0.02 K/uL (0.00-0.02); Immature Granulocytes % (auto) 0.2 %; Lymphocytes # (auto) 1.34 K/uL (1.2-3.4); Lymphocytes % (auto) 13.3 %; Mean Corpuscular Volume 98.4 fL (80-100); Mean Platelet Volume 7.5 fL (7.4-10.4); Monocytes # (auto) 0.69 K/uL (0.11-0.59); Monocytes % (auto) 6.9 %; Neutrophils # (auto) 7.71 K/uL (1.4-6.5); Neutrophils % (auto) 76.8 %; Platelet Count 182 K/uL (130-400); RDW Coefficient of Variation 16.9 % (11.5-14.5); RDW Standard Deviation 59.7 fL (36.4-46.3); Red Blood Count 3.05 M/uL (4.7-6.1); White Blood Count 10.04 K/uL (4.8-10.8)
[2018-10-06 07:16] LABS: Albumin Level 2.3 gm/dl (3.4-5.0); Calcium 7.6 mg/dl (8.5-10.1); Creatinine Clr Calc Pharmacy 42.3 ml/min; Est GFR (Non-African American) 56.1; Potassium 4.1 mmol/L (3.5-5.1)
[2018-10-06 07:19] LABS: Albumin Globulin Ratio 0.6 (0.9-2); Bilirubin,Total 1.8 mg/dl (0.1-1); Globulin 3.7 gm/dl (2.5-4.0)
[2018-10-06 07:23] LABS: INR 3.1 (0.9-1.1); Partial Thromboplastin Ratio 1.7; Prothrombin Time 29.1 Seconds (9.0-12.0)
[2018-10-06] MEDS ORDERED: PERFLUTREN LIPID MICROSPHERE (DEFINITY) IV ONE (07:23)
[2018-10-06] MEDS: ATORVASTATIN 10 MG TAB PO SCH (08:38)
[2018-10-06] MEDS: POTASSIUM CHLORIDE 10 MEQ TABCR PO SCH (08:38)
[2018-10-06] MEDS: METOPROLOL TARTRATE 25 MG TAB PO SCH (08:39)
[2018-10-06] MEDS: CHOLECALCIFEROL 1,000 UNITS TAB PO SCH (08:39)
[2018-10-06] MEDS: TRAMADOL HCL 50 MG TABLET PO SCH ×3 (08:39→19:46)
[2018-10-06] MEDS: SERTRALINE HCL 50 MG TABLET PO SCH (08:39)
--- NOTE | 2018-10-06 09:15 | Cardiology Consultation ---
Date of Consultation October 06, 2018 Assessment & Plan (1) Elevated troponin: His troponin is minimally elevated at 0.151. He is asymptomatic with no anginal symptoms or shortness of breath. ECG shows no acute ischemic changes. His presentation is therefore not consistent with an ACS. No additional cardiovascular studies/intervention recommended in this regard. (2) Atrial fibrillation: He has permanent atrial fibrillation. His rate has been adequately controlled here, and he may not require beta mark therapy for rate control moving forward. There is also concern given his frequent falls recently that there could be an arrhythmia and/or drop in his blood pressure leading to the falls. Will therefore start with discontinuing his metoprolol. Will continue to monitor him on telemetry to see how his heart rate responds. He is chronically anticoagulated with warfarin. Continue anticoagulation therapy as long as there are no contraindications, but he may benefit from switching to a novel agent such as Eliquis in the future. (3) Cardiomyopathy: He has a history of a cardiomyopathy with an EF of 45-50% on his most recent echo in November 2017. Will repeat an echocardiogram to reevaluate his biventricular systolic function. He does have a significant amount of edema on examination today, and would likely benefit from diuresis. He reportedly takes Torsemide 20 mg PRN as an outpatient and would resume the medication during this hospitalization to help with some of his edema. Daily weights. Low sodium diet, <2,000 mg daily. (4) Falls: He reports frequent falls recently. He does use a walker when ambulating, but reports that he loses his balance which leads to the falls. Will discontinue his metoprolol as noted above to see how his heart rate responds off the medication and continue to monitor with telemetry. Orthostatic vital signs have also been ordered. If they are unremarkable, will consider performing a tilt table test in order to determine if he is having a significant amount of orthostatic hypotension. An echocardiogram has also been ordered. Patient discussed with Dr. Cagle, and the plan was made in collaboration with him. Supervising Physician Co-Signing Physician Notes I discussed the above with Breonna, and I interviewed and examined the patient. I agree with above. History of Present Illness Reason for Consultation: Elevated troponin Requesting Physician: Dr. Valencia Attending Physician: Dr. Cagle History of Present Illness Mr. Jett is an 88-year-old male with a past medical history significant for permanent atrial fibrillation, mild cardiomyopathy, CHF, hypertension, dyslipidemia, and history of TIA x2 who presented to the ED yesterday with complaints of increased edema, bruising, and pain of his lower extremities. The patient has recently experienced multiple falls and was actually evaluated in the ED on 09/15/18 following 3 falls in his residence at [facility]. He then presented last evening with increased pain, bruising, and edema of his legs with the left leg being worse than the right. He has been initiated on antibiotic therapy for possible cellulitis. Venous ultrasound has shown no evidence of DVT in his bilateral lower extremities. Left lower extremity arterial duplex shows focal elevated velocities in the distal anterior tibial artery and dorsalis pedis artery. There is diffuse atherosclerotic plaque in the remainder of the vessels. He has been found to be anemic with a hemoglobin of 9.6 this morning. Troponin was mildly elevated at 0.151. ECG shows atrial fibrillation with no acute ischemic changes. The patient states that his falls were due to him losing his balance. He denies any syncopal events. He does use a walker when ambulating. He denies any complaints of chest pain, other anginal type symptoms, or shortness of breath. He denies orthopnea or PND. He denies palpitations. He denies melena, hematochezia, or hematuria. He denies cerebrovascular symptoms. PMH: 1. Permanent atrial fibrillation, rate controlled with metoprolol tartrate; anticoagulated with warfarin 2. Cardiomyopathy with EF 45-50% in November 2017 3. Congestive heart failure, reportedly taking PRN Torsemide as an outpatient 4. Hypertension 5. Dyslipidemia 6. Hx of TIA x2, on Plavix 7. Osteoarthritis 8. Restless leg syndrome 9. Neuropathy 10. GERD 11. Hyperglycemia 12. BPH Social: He lives at [facility]. He denies smoking. He drinks one alcoholic beverage daily. Allergies Allergy/AdvReac Type Severity Reaction Status Date / Time celecoxib Allergy Unknown Verified 10/05/18 16:20 Bactrim AdvReac Intermediate DYSPEPSIA Verified 03/05/18 14:22 cephalexin AdvReac Intermediate DYSPEPSIA Verified 10/05/18 16:20 esomeprazole AdvReac Intermediate GI SYMPTOMS Verified 10/05/18 16:20 naproxen AdvReac Intermediate DYSPEPSIA Verified 10/05/18 16:20 NSAIDS (Non-Steroidal AdvReac Intermediate esaphogeal Verified 10/05/18 16:20 Anti-Inflamma lesions sulfamethoxazole AdvReac Intermediate DYSPEPSIA Verified 10/05/18 16:20 trimethoprim AdvReac Intermediate DYSPEPSIA Verified 10/05/18 16:20 Cephalosporins AdvReac Mild NAUSEA Verified 10/05/18 16:20 Home Medications Home Medications Medication Instructions Recorded Confirmed Type acetaminophen 325 mg tablet 650 mg PO Q4H PRN tab 08/08/18 10/05/18 History atorvastatin 10 mg tablet 10 mg PO QAM 08/08/18 10/05/18 History cholecalciferol (vitamin D3) 2,000 2,000 units PO QAM 08/08/18 10/05/18 History unit capsule clopidogrel 75 mg tablet 75 mg PO Q2D 08/08/18 10/05/18 History dutasteride 0.5 mg capsule 0.5 mg PO QAM 08/08/18 10/05/18 History lisinopril 5 mg tablet 5 mg PO QAM 08/08/18 10/05/18 History melatonin 3 mg tablet 3 mg PO HS 08/08/18 10/05/18 History potassium chloride ER 10 mEq 10 meq PO QAM 08/08/18 10/05/18 History capsule,extended release sennosides 8.6 mg tablet 8.6 mg PO BID PRN 08/08/18 10/05/18 History sertraline 25 mg tablet 25 mg PO QAM 08/08/18 10/05/18 History tramadol 50 mg tablet 50 mg PO TID tab 08/08/18 10/05/18 History warfarin 4 mg tablet 4 mg PO PM 08/08/18 10/05/18 History metoprolol tartrate 25 mg PO BID 09/15/18 10/05/18 History bisacodyl [Dulcolax (bisacodyl)] 10 mg AZ Q48H PRN 10/05/18 10/05/18 History calcium carbonate [Tums] 500 mg PO UD PRN 10/05/18 10/05/18 History magnesium hydroxide [Milk of 30 ml PO Q48H PRN 10/05/18 10/05/18 History Magnesia] sodium phosphates [Fleet Enema] 1 dose AZ Q72H PRN 10/05/18 10/05/18 History torsemide 20 mg PO QAM PRN 10/05/18 10/05/18 History Patient History Medical History Atrial fibrillation (Acute) Pneumothorax (Acute) TIA (transient ischemic attack) (Acute) Acid reflux (Chronic) Surgical History H/O right inguinal hernia repair (Acute) History of colon resection (Acute) History of hemiarthroplasty of shoulder (Acute) History of total right hip replacement (Acute) Hx of tonsillectomy (Acute) Social History marital status: / Current Living Situation: Personal Care Facility current occupational status: retired Other Information That Helps Us Care for You: No Feels Safe at Home: Yes Safety Concerns: Feels Safe At This Time Smoking Status: Unknown if ever smoked Hx Alcohol Use: No Hx Substance Use: No Beliefs That Will Affect Care: None Communication Ability: Effective Physical Exam 2 Vital Signs (Past 24 Hours): Last Vital Signs Temp 37.0 C 10/06/18 07:53 Pulse 80 10/06/18 07:53 Resp 20 10/06/18 07:53 BP 161/75 H 10/06/18 07:53 Pulse Ox 90 10/06/18 07:53 Constitutional: Alert, oriented, in no acute distress HEENT: Head is atraumatic and normocephalic. EOMs intact. Sclera anicteric. Face is symmetric. No perioral cyanosis. Mucous membranes moist. Neck: Supple, no appreciable JVD, no carotid bruits Pulmonary: Normal respiratory effort, clear to auscultation bilaterally Cardiac: Irregularly irregular, normal S1 and S2, no gallops, no rubs, no obvious murmurs Extremities: 2+ edema 1/2 way to the knees bilaterally but L>R. No clubbing or cyanosis. Diminished peripheral pulses Abdomen: Normal bowel sounds, soft, non-tender, no abdominal mass palpated Skin: There is a significant amount of ecchymosis and redness of the left lower extremity. No rash. Neurological: Oriented to person, place, and time Results & Data Laboratory Results Laboratory Results WBC 10.04 K/uL (4.8-10.8) 10/06/18 06:31 RBC 3.05 M/uL (4.7-6.1) L 10/06/18 06:31 Hgb 9.6 g/dL (14.0-18.0) L 10/06/18 06:31 Hct 30.0 % (42-52) L 10/06/18 06:31 MCV 98.4 fL (80-100) 10/06/18 06:31 MCH 31.5 pg (25-34) 10/06/18 06:31 MCHC 32.0 g/dL (32-36) 10/06/18 06:31 RDW Std Deviation 59.7 fL (36.4-46.3) H 10/06/18 06:31 RDW Coeff of Michelle 16.9 % (11.5-14.5) H 10/06/18 06:31 Plt Count 182 K/uL (130-400) 10/06/18 06:31 MPV 7.5 fL (7.4-10.4) 10/06/18 06:31 Immature Gran % (Auto) 0.2 % 10/06/18 06:31 Neut % (Auto) 76.8 % 10/06/18 06:31 Lymph % (Auto) 13.3 % 10/06/18 06:31 Creek % (Auto) 6.9 % 10/06/18 06:31 Eos % (Auto) 2.6 % 10/06/18 06:31 Baso % (Auto) 0.2 % 10/06/18 06:31 Immature Gran # (Auto) 0.02 K/uL (0.00-0.02) 10/06/18 06:31 Neut # (Auto) 7.71 K/uL (1.4-6.5) H 10/06/18 06:31 Lymph # (Auto) 1.34 K/uL (1.2-3.4) 10/06/18 06:31 Creek # (Auto) 0.69 K/uL (0.11-0.59) H 10/06/18 06:31 Eos # (Auto) 0.26 K/uL (0-0.5) 10/06/18 06:31 Baso # (Auto) 0.02 K/uL (0-0.2) 10/06/18 06:31 PT 29.1 Seconds (9.0-12.0) H 10/06/18 06:31 INR 3.1 (0.9-1.1) H 10/06/18 06:31 APTT 44.0 Seconds (21.0-31.0) H 10/06/18 06:31 PTT Ratio 1.7 10/06/18 06:31 Sodium 133 mmol/L (136-145) L 10/06/18 06:31 Potassium 4.1 mmol/L (3.5-5.1) 10/06/18 06:31 Chloride 97 mmol/L (98-107) L 10/06/18 06:31 Carbon Dioxide 30 mmol/L (21-32) 10/06/18 06:31 Anion Gap 6.0 (3-11) 10/06/18 06:31 BUN 25 mg/dl (7-18) H 10/06/18 06:31 Creatinine 1.15 mg/dl (0.6-1.4) D 10/06/18 06:31 Est Cr Clr Drug Dosing 42.3 ml/min 10/06/18 06:31 Est GFR ( Amer) 65.0 10/06/18 06:31 Est GFR (Non-Af Amer) 56.1 10/06/18 06:31 BUN/Creatinine Ratio 22.0 (10-20) H 10/06/18 06:31 Glucose 92 mg/dl (70-99) 10/06/18 06:31 Calcium 7.6 mg/dl (8.5-10.1) L 10/06/18 06:31 Total Bilirubin 1.8 mg/dl (0.1-1) H 10/06/18 06:31 AST 33 U/L (15-37) 10/06/18 06:31 ALT 27 U/L (12-78) 10/06/18 06:31 Alkaline Phosphatase 72 U/L (45-117) 10/06/18 06:31 Total Creatine Kinase 81 U/L (39-308) 10/05/18 14:45 CK-MB (CK-2) 2.2 ng/ml (0.5-3.6) 10/05/18 14:45 CK/CKMB % Calc 2.7 (0-3.0) 10/05/18 14:45 Troponin I 0.151 ng/ml (0-0.045) H* 10/05/18 14:45 Total Protein 6.0 gm/dl (6.4-8.2) L 10/06/18 06:31 Albumin 2.3 gm/dl (3.4-5.0) L 10/06/18 06:31 Globulin 3.7 gm/dl (2.5-4.0) 10/06/18 06:31 Albumin/Globulin Ratio 0.6 (0.9-2) L 10/06/18 06:31 Lipase 300 U/L (73-393) 10/05/18 14:45 Nasal Screen MRSA (PCR) Negative (Negative) 10/05/18 20:30 Diagnostic Findings Venous duplex: No sonographic evidence of deep venous thrombosis within the right or left lower extremity. Left lower extremity arterial duplex: 1. Focal elevated velocities in the distal anterior tibial artery and dorsalis pedis artery suggest hemodynamically significant stenosis at these sites. Diffuse atherosclerotic plaque in the remainder of the vessels. 2. Unable to perform ankle-brachial indices. CXR: Cardiomegaly without acute process. Telemetry: Atrial fibrillation with adequate rate control in the 60s-90s.
--- NOTE | 2018-10-06 11:08 | Hospitalist Progress Note ---
Date of Service October 06, 2018 Assessment & Plan (1) Arterial insufficiency of lower extremity: Left lower extremity arterial Dopplers on 10/05 showed significant stenosis in the distal anterior tibial and dorsalis pedis arteries. He also has cracks and hemorrhages on the hands and feet. - Will discuss with cardiology and consider consult with Dr. Naranjo for vascular input - Monitor skin (patient reports it is actually improving) - Continue warfarin and Plavix (2) Cellulitis of lower extremity: Unclear whether this is cellulitis vs. other skin process; however, discussed with Dr. Byrd on 10/06, and a prior episode of cellulitis presented the same way with significant swelling of the left arm which resolved with antibiotic treatment. - Continue vancomycin IV and Zosyn IV (3) Elevated troponin: Troponin was 0.15 and 0.17 on admission. EKG was non-ischemic, and the patient does not endorse chest pain, shortness of breath, or other anginal equivalent. Seen by cardiology with no further testing required. - Continue telemetry, but otherwise no additional inpatient work-up - Appreciate cardiology input (4) Atrial fibrillation: Chronic afib. On warfarin for anticoagulation and metoprolol for rate control. - Per cardiology, holding metoprolol as it could be contributing to his falls - Continue anticoagulation (5) Anemia: Baseline hemoglobin seems to be 12-14. On admission, was down to 9.6. No signs of bleeding apart from this significant bruising. Borderline macrocytic, but B12 was 474 in 08/2018. - Check folate - Will order series of hemoccults to try to rule out occult GI bleed - Monitor hgb level while inpatient (6) Falls: Large number of recent falls per patient. Likely multifactorial with cardiology looking into orthostasis/BP changes, age, frailty, and possibly some neuropathy. - PT/OT - Cardiology getting orthostatics and possibly a tilt-table test - Discussed with Dr. Cagle (7) TIA (transient ischemic attack): Likely embolic due to history of atrial fibrillation. Continue Plavix and warfarin. (8) Restless leg syndrome: RLS plus arterial insufficiency likely contributing to patient's symptoms. - Continue tramadol - Could consider the addition of gabapentin or Lyrica. (9) Hyperlipidemia LDL goal <70: Continue atorvastatin 10 mg daily Subjective 88yo M w/ hx of afib, cardiomyopathy, and prior TIA who presents with ankle pain and swelling for the last several weeks. This morning, he reports continued ankle pain. He does not think it's gotten any better since his arrival. Otherwise reports no fevers/chills, chest pain, shortness of breath, abdominal pain, nausea, or vomiting. Physical Exam 2 Vital Signs (Past 24 Hours): Last Vital Signs Temp 37.0 C 10/06/18 07:53 Pulse 80 10/06/18 07:53 Resp 20 10/06/18 07:53 BP 161/75 H 10/06/18 07:53 Pulse Ox 90 10/06/18 07:53 Constitutional: WD/WN, vitals as above Eyes: EOM intact bilaterally; no conjunctival abnormality ENMT: external ear and nose normal, oropharynx normal Neck: trachea midline, no thyromegaly normal visual inspection Respiratory: normal respiratory effort, lungs clear to auscultation no respiratory distress Cardiovascular: RRR, no murmur, no edema Gastrointestinal (Abdomen): Inspection/Auscultation: abdomen normal to inspection; abdomen not distended Musculoskeletal: no cyanosis or clubbing, extremities motor strength 5/5 Skin: Hand and feet have mottled appearance. All of them have some cracking with hemorrhage. Neurologic: moves all extremities and awake Psychiatric: Orientation: alert, oriented to person and cooperative _ (1) Anemia Anemia type: unspecified type Bone marrow failure anemia type: Chronic kidney disease stage: Folate deficiency anemia type: Hemolytic anemia type: Iron deficiency anemia type: Other causes of anemia: Vitamin B12 deficiency anemia type: Qualified Code(s): D64.9 - Anemia, unspecified (2) Atrial fibrillation Atrial fibrillation type: permanent Qualified Code(s): I48.2 - Chronic atrial fibrillation (3) Cellulitis of lower extremity Laterality: left Qualified Code(s): L03.116 - Cellulitis of left lower limb (4) Falls Encounter type: initial encounter Qualified Code(s): W19.XXXA - Unspecified fall, initial encounter
--- NOTE | 2018-10-06 15:45 | Pharmacy Report ---
Pharmacy Abx Dose Short Note - Date of Service October 06, 2018 - Assessment & Plan Assessment * Mr Jett is an 88 year old M receiving Vancomycin/Zosyn for the treatment of LE cellulitis. * PMH includes TIAs, PAD, RLS, HTN, hx of colon resection. * L leg cultures are positive for Staph sp. Plan Vancomycin * Vancomycin 2000mg (~28mg/kg) IV x1 dose, then * Vancomycin 1250mg (~17mg/kg) IV q24h * Patient's estimated p'kinetic parameters (based on CrCL ~42mL/min): * Vd ~ 0.7L/kg Robbie ~ 0.039hr-1 t1/2 ~ 17.8hr * Goal trough level for SSTI: 15 to 20 mcg/mL * Trough level ordered for 10/07 prior to the 2nd maintenance dose, which will not yet represent steady-state Zosyn 3.375gm IV x1 dose over 30 min, then 3.375gm IV q8h extended 4-hr infusion Pharmacy will continue to follow and will adjust dose/frequency as necessary. Thank you.
[2018-10-06] MEDS: VANCOMYCIN HCL 1,250 MG in SODIUM CHLORIDE 0.9% 250 ML IV SCH (21:28)
[2018-10-07 00:59] LABS: Appearance Urine Clear (Clear); Bacteria Urine Automated Negative (Negative); Bilirubin Urine Negative (Negative); Color Urine Yellow; Glucose Urine UA Negative (Negative); Ketones Urine Negative (Negative); Leukocyte Esterase Urine Negative (Negative); Nitrite Urine Negative (Negative); Protein Urine Negative (Negative); Urobilinogen Urine Negative (Negative); WBC Urine Automated 0 /hpf (0-5)
[2018-10-07] MEDS: PIPERACILLIN/TAZOBACTAM 3.375 GM in DEXTROSE 5% 100 ML IV SCH ×2 (01:47→11:22)
[2018-10-07 07:36] LABS: Basophils # (auto) 0.02 K/uL (0-0.2); Basophils % (auto) 0.2 %; Eosinophils # (auto) 0.17 K/uL (0-0.5); Eosinophils % (auto) 1.6 %; Hematocrit (blood only) 31.9 % (42-52); Hemoglobin 10.2 g/dL (14.0-18.0); Immature Granulocytes # (auto) 0.03 K/uL (0.00-0.02); Immature Granulocytes % (auto) 0.3 %; Lymphocytes # (auto) 1.16 K/uL (1.2-3.4); Lymphocytes % (auto) 10.6 %; Mean Corpuscular Volume 98.5 fL (80-100); Mean Platelet Volume 8.4 fL (7.4-10.4); Monocytes # (auto) 0.86 K/uL (0.11-0.59); Monocytes % (auto) 7.9 %; Neutrophils # (auto) 8.68 K/uL (1.4-6.5); Neutrophils % (auto) 79.4 %; Platelet Count 182 K/uL (130-400); RDW Coefficient of Variation 16.6 % (11.5-14.5); RDW Standard Deviation 59.3 fL (36.4-46.3); Red Blood Count 3.24 M/uL (4.7-6.1); White Blood Count 10.92 K/uL (4.8-10.8)
[2018-10-07 07:40] LABS: INR 2.1 (0.9-1.1); Prothrombin Time 20.7 Seconds (9.0-12.0)
[2018-10-07] MEDS: CHOLECALCIFEROL 1,000 UNITS TAB PO SCH (07:54)
[2018-10-07] MEDS: CLOPIDOGREL BISULFATE 75 MG TAB PO SCH (07:54)
[2018-10-07] MEDS: TRAMADOL HCL 50 MG TABLET PO SCH ×3 (07:54→21:10)
[2018-10-07] MEDS: SERTRALINE HCL 50 MG TABLET PO SCH (07:54)
[2018-10-07] MEDS: ATORVASTATIN 10 MG TAB PO SCH (07:54)
[2018-10-07] MEDS: POTASSIUM CHLORIDE 10 MEQ TABCR PO SCH (07:55)
[2018-10-07 08:02] LABS: Albumin Level 2.4 gm/dl (3.4-5.0); BUN Creatinine Ratio 19.1 (10-20); C Reactive Protein 15.1 mg/dl (0-0.29); Calcium 8.3 mg/dl (8.5-10.1); Creatinine Clr Calc Pharmacy 43.2 ml/min; Est GFR (African American) 64.4; Est GFR (Non-African American) 55.5; Magnesium 2.2 mg/dl (1.8-2.4)
[2018-10-07 08:05] LABS: Albumin Globulin Ratio 0.6 (0.9-2); Bilirubin,Total 1.9 mg/dl (0.1-1); Total Protein 6.4 gm/dl (6.4-8.2)
--- NOTE | 2018-10-07 12:21 | Hospitalist Progress Note ---
Date of Service October 07, 2018 Assessment & Plan (1) Arterial insufficiency of lower extremity: Left lower extremity arterial Dopplers on 10/05 showed significant stenosis in the distal anterior tibial and dorsalis pedis arteries. He also has cracks and hemorrhages on the hands and feet. - No vascular coverage at present - Monitor skin (patient reports it is actually improving) - Continue warfarin and Plavix (2) Cellulitis of lower extremity: Unclear whether this is cellulitis vs. other skin process; however, discussed with Dr. Byrd on 10/06, and a prior episode of cellulitis presented the same way with significant swelling of the left arm which resolved with antibiotic treatment. Wound culture from 10/05 growing coag(-) Staph. - Continue vancomycin - Stop Zosyn given no indication of Gram(-) or anaerobic cause - Discussed with cardiology on 10/07 without strong indication of cause of diffuse mottling; possibly due to skin cracking - Wound RN consult entered (3) Elevated troponin: Troponin was 0.15 and 0.17 on admission. EKG was non-ischemic, and the patient does not endorse chest pain, shortness of breath, or other anginal equivalent. Seen by cardiology with no further testing required. - Continue telemetry, but otherwise no additional inpatient work-up - Appreciate cardiology input (4) Atrial fibrillation: Chronic afib. On warfarin for anticoagulation and metoprolol for rate control. - Per cardiology, holding metoprolol as it could be contributing to his falls - Continue anticoagulation (Dr. Cagle recommends possible switch to DOAC.) (5) Anemia: Baseline hemoglobin seems to be 12-14. On admission, was down to 9.6. No signs of bleeding apart from his significant bruising. Borderline macrocytic, but B12 was 474 in 08/2018. Folate was 8.8 on 10/07. Stool hemoccult was negative on 10/07. - Follow up further hemoccults - Monitor hgb level while inpatient (6) Falls: Large number of recent falls per patient. Likely multifactorial with cardiology looking into orthostasis/BP changes, age, frailty, and possibly some neuropathy. - PT/OT - Cardiology getting orthostatics and possibly a tilt-table test - Discussed with Dr. Cagle on 10/07 (7) TIA (transient ischemic attack): Likely embolic due to history of atrial fibrillation. Continue Plavix and warfarin. (8) Restless leg syndrome: RLS plus arterial insufficiency likely contributing to patient's symptoms. - Continue tramadol - Could consider the addition of gabapentin or Lyrica. (9) Hyperlipidemia LDL goal <70: Continue atorvastatin 10 mg daily (10) DVT prophylaxis: On warfarin Subjective 88yo M w/ hx of afib, cardiomyopathy, and prior TIA who presents with ankle pain and swelling for the last several weeks. This morning, he reports continued ankle pain. He does not think it's gotten any better since his arrival. Still feels swollen and sore to movement. Otherwise reports no fevers/chills, chest pain, shortness of breath, abdominal pain, nausea, or vomiting. Physical Exam 2 Vital Signs (Past 24 Hours): Last Vital Signs Temp 36.3 C L 10/07/18 11:00 Pulse 62 10/07/18 11:00 Resp 18 10/07/18 11:00 BP 114/52 L 10/07/18 11:00 Pulse Ox 91 10/07/18 11:00 Constitutional: WD/WN, vitals as above Eyes: EOM intact bilaterally; no conjunctival abnormality ENMT: external ear and nose normal, oropharynx normal Neck: trachea midline, no thyromegaly normal visual inspection Respiratory: normal respiratory effort, lungs clear to auscultation no respiratory distress Cardiovascular: RRR, no murmur, no edema Gastrointestinal (Abdomen): Inspection/Auscultation: abdomen normal to inspection; abdomen not distended Musculoskeletal: no cyanosis or clubbing, extremities motor strength 5/5 Skin: + rash (Diffuse mottling of skin tone on the hands and feet.) Neurologic: moves all extremities and awake Psychiatric: Orientation: alert, oriented to person and cooperative _ (1) Cellulitis of lower extremity Laterality: left Qualified Code(s): L03.116 - Cellulitis of left lower limb (2) Atrial fibrillation Atrial fibrillation type: permanent Qualified Code(s): I48.2 - Chronic atrial fibrillation (3) Anemia Anemia type: unspecified type Bone marrow failure anemia type: Chronic kidney disease stage: Folate deficiency anemia type: Hemolytic anemia type: Iron deficiency anemia type: Other causes of anemia: Vitamin B12 deficiency anemia type: Qualified Code(s): D64.9 - Anemia, unspecified (4) Falls Encounter type: initial encounter Qualified Code(s): W19.XXXA - Unspecified fall, initial encounter
[2018-10-07] MEDS ORDERED: FUROSEMIDE 20 MG in SYRINGE 0 ML IV ONE (12:45)
--- NOTE | 2018-10-07 13:25 | Cardiology Progress Note ---
Date of Service October 07, 2018 Assessment & Plan (1) Elevated troponin: His troponin is minimally elevated with a maximum of 0.178, however this is abnormal and the cause is not obvious. He is asymptomatic with no anginal symptoms or shortness of breath. ECG shows no acute ischemic changes. His presentation is therefore not consistent with an ACS. No additional cardiovascular studies/intervention recommended in this regard. (2) Atrial fibrillation: He has permanent atrial fibrillation. His rate has been adequately controlled here, and he may not require beta mark therapy for rate control moving forward. There is also concern given his frequent falls recently that there could be an arrhythmia and/or drop in his blood pressure leading to the falls. I discontinued his beta-mark yesterday. We will continue to monitor him on telemetry to see how his heart rate responds, so far does not increase substantially with discontinuation of beta-blockade. He is chronically anticoagulated with warfarin. I would recommend switching to 1 of the newer agents and I will start Eliquis today. Given his normal creatinine now and his weight he should be on 5 mg twice a day (3) Cardiomyopathy: He has a history of a cardiomyopathy with an EF of 45-50%, if anything that is somewhat improved now. He does have a dilated right ventricle, although his pulmonary pressures are not tremendously elevated so the cause of that is unclear but it might contribute to his peripheral edema. Gentle diuresis may be reasonable, however I would be careful with fluid loss until we were able to take orthostatic blood pressures to see if that is related to his falling. (4) Falls: He reports frequent falls recently. He cannot bear weight on his left leg therefore we have not been able to get good orthostatic blood pressures. If he has orthostasis at baseline that could explain his falls, if he does not we can do a tilt test to see whether his blood pressure gradually drops over time which is sometimes see. We cannot really do either of these things until he can bear weight. Subjective His main complaint is that of severe left leg and especially left ankle discomfort making it impossible for him to stand. He does not have any other complaints at this time, but has not been out of bed to determine whether he has lightheadedness or dizziness. He has no palpitations. Physical Exam 2 Vital Signs (Past 24 Hours): Last Vital Signs Temp 36.3 C L 10/07/18 11:00 Pulse 62 10/07/18 11:00 Resp 18 10/07/18 11:00 BP 114/52 L 10/07/18 11:00 Pulse Ox 91 10/07/18 11:00 Physical Exam: Constitutional: Alert, cooperative and in no distress. HEENT: Unremarkable Neck: No jugular venous distention, carotid pulses are irregular but otherwise normal and equal bilaterally without bruits. Pulmonary: Clear to auscultation bilaterally. Cardiac: Irregular rhythm with no murmur, gallop or rub. Abdomen: Soft, nontender with normal bowel sounds. Extremities: Notable for edema, left much more than right. His left ankle is very tender. Neurologic: No focal findings. Gait is steady. Skin: His hands and feet and especially his left leg are very mottled and ecchymotic. Results & Data Diagnostic Findings Telemetry: Atrial fibrillation with a controlled heart rate _ (1) Atrial fibrillation Atrial fibrillation type: permanent Qualified Code(s): I48.2 - Chronic atrial fibrillation (2) Falls Encounter type: initial encounter Qualified Code(s): W19.XXXA - Unspecified fall, initial encounter
[2018-10-07] MEDS ORDERED: VANCOMYCIN TROUGH ONE (21:30)
[2018-10-07] MEDS: VANCOMYCIN HCL 1,250 MG in SODIUM CHLORIDE 0.9% 250 ML IV SCH (21:55)
[2018-10-08 06:30] LABS: Basophils # (auto) 0.03 K/uL (0-0.2); Basophils % (auto) 0.3 %; Eosinophils % (auto) 2.7 %; Hemoglobin 9.3 g/dL (14.0-18.0); Immature Granulocytes # (auto) 0.04 K/uL (0.00-0.02); Immature Granulocytes % (auto) 0.4 %; Lymphocytes # (auto) 1.19 K/uL (1.2-3.4); Lymphocytes % (auto) 10.7 %; Mean Corpuscular Hgb Conc 32.1 g/dL (32-36); Mean Platelet Volume 7.6 fL (7.4-10.4); Monocytes # (auto) 0.85 K/uL (0.11-0.59); Monocytes % (auto) 7.7 %; Neutrophils % (auto) 78.2 %; Platelet Count 148 K/uL (130-400); RDW Coefficient of Variation 16.2 % (11.5-14.5); RDW Standard Deviation 56.9 fL (36.4-46.3); Red Blood Count 2.99 M/uL (4.7-6.1); White Blood Count 11.11 K/uL (4.8-10.8)
[2018-10-08 06:34] LABS: INR 1.7 (0.9-1.1); Prothrombin Time 16.8 Seconds (9.0-12.0)
[2018-10-08 07:19] LABS: Albumin Globulin Ratio 0.6 (0.9-2); Albumin Level 2.2 gm/dl (3.4-5.0); Bilirubin,Total 1.6 mg/dl (0.1-1); Calcium 7.7 mg/dl (8.5-10.1); Creatinine Clr Calc Pharmacy 50.8 ml/min; Est GFR (African American) 79.9; Est GFR (Non-African American) 68.9; Magnesium 1.9 mg/dl (1.8-2.4); Potassium 3.7 mmol/L (3.5-5.1); Total Protein 6.2 gm/dl (6.4-8.2)
--- NOTE | 2018-10-08 09:06 | Pharmacy Report ---
Pharmacy Abx Dose Short Note - Date of Service October 08, 2018 - Assessment & Plan Assessment * 88 year old M receiving VANCOMYCIN IV for treatment of lower extremity cellulitis * Day # 4 of antimicrobial therapy * L Leg cx preliminary cx is growing CoN Staph * Renal fxn continues to improve (SCr 1.48-->1.15-->1.16-->0.97), U.O. improved today Plan Vancomycin * Trough level of 11.3 mcg/mL is therapeutic when treating skin/skin structure infxn. This level was drawn after only 1 maintenance dose and will likely increase w/ repeat dosing * Continue dose of 1000 mg IV every 24 hours * Goal trough level for skin/skin structure infxn: 10-20mcg/mL * Will repeat trough level w/ 4th maint dose to assess level at steady-state Pharmacy will continue to follow and will adjust dose/frequency as necessary. Thank you.
[2018-10-08] MEDS: ATORVASTATIN 10 MG TAB PO SCH (09:14)
[2018-10-08] MEDS: POTASSIUM CHLORIDE 10 MEQ TABCR PO SCH (09:14)
[2018-10-08] MEDS: SERTRALINE HCL 50 MG TABLET PO SCH (09:14)
[2018-10-08] MEDS: CHOLECALCIFEROL 1,000 UNITS TAB PO SCH (09:14)
[2018-10-08] MEDS: TRAMADOL HCL 50 MG TABLET PO SCH (09:19)
--- NOTE | 2018-10-08 10:44 | Cardiology Progress Note ---
Date of Service October 08, 2018 Assessment & Plan (1) Elevated troponin: His troponin is minimally elevated with a maximum of 0.178, however this is abnormal and the cause is not obvious. He is asymptomatic with no anginal symptoms or shortness of breath. ECG shows no acute ischemic changes. His presentation is therefore not consistent with an ACS. No additional cardiovascular studies/intervention recommended in this regard. (2) Atrial fibrillation: He has permanent atrial fibrillation. His rate has been adequately controlled here, and he may not require beta mark therapy for rate control moving forward. There is also concern given his frequent falls recently that there could be an arrhythmia and/or drop in his blood pressure leading to the falls. I discontinued his beta-mark. We will continue to monitor him on telemetry to see how his heart rate responds, so far does not increase substantially with discontinuation of beta-blockade and I am going to leave him off of it. He has been chronically anticoagulated with warfarin. I would recommend switching to 1 of the newer agents, his INR is now below 2 and I will start Eliquis today. Given his normal creatinine now and his weight he should be on 5 mg twice a day (3) Cardiomyopathy: He has a history of a cardiomyopathy with an EF of 45-50%, if anything that is somewhat improved now. He does have a dilated right ventricle, although his pulmonary pressures are not tremendously elevated so the cause of that is unclear but it might contribute to his peripheral edema. Gentle diuresis may be reasonable, however I would be careful with fluid loss until we were able to take orthostatic blood pressures to see if that is related to his falling. His weight varies quite a bit here, possibly due to methods of weighing him, but overall he does not seem to have had an increase in weight. (4) Falls: He reports frequent falls recently. He cannot bear weight on his left leg therefore we have not been able to get good orthostatic blood pressures. If he has orthostasis at baseline that could explain his falls, if he does not we can do a tilt test to see whether his blood pressure gradually drops over time which is sometimes see. We cannot really do either of these things until he can bear weight. Subjective Today he is sitting at his bedside and apparently is feeling a little bit better , he has less pain in his leg but still has difficulty standing. No cardiovascular complaints. Physical Exam 2 Vital Signs (Past 24 Hours): Last Vital Signs Temp 36.3 C L 10/08/18 07:09 Pulse 101 H 10/08/18 07:09 Resp 19 10/08/18 07:09 BP 140/79 10/08/18 07:09 Pulse Ox 92 10/08/18 07:09 Physical Exam: Constitutional: Alert, cooperative and in no distress. Pulmonary: Clear to auscultation bilaterally. Cardiac: Irregular rhythm with no murmur, gallop or rub. Abdomen: Soft, nontender with normal bowel sounds. Extremities: No edema. Skin: His hands and feet remain ecchymotic, especially his left leg. Results & Data Diagnostic Findings Telemetry: Atrial fibrillation with a controlled heart rate _ (1) Atrial fibrillation Atrial fibrillation type: permanent Qualified Code(s): I48.2 - Chronic atrial fibrillation (2) Falls Encounter type: initial encounter Qualified Code(s): W19.XXXA - Unspecified fall, initial encounter
[2018-10-08] MEDS: EUCERIN CR 120 GM JAR EXT SCH ×2 (10:56→19:28)
[2018-10-08] MEDS: APIXABAN 5 MG TABLET PO SCH ×2 (12:31→19:29)
--- NOTE | 2018-10-08 14:38 | Hospitalist Progress Note ---
Date of Service October 08, 2018 Assessment & Plan (1) Arterial insufficiency of lower extremity: Left lower extremity arterial Dopplers on 10/05 showed significant stenosis in the distal anterior tibial and dorsalis pedis arteries. He also has cracks and hemorrhages on the hands and feet. However, foot is not cool to touch and has normal neurovascular exam. - If still inpatient, on Wednesday, consider vascular consult - Monitor skin (patient reports it is actually improving) - Continue warfarin and Plavix (2) Cellulitis of lower extremity: Discussed with Dr. Byrd on 10/06, and a prior episode of cellulitis presented the same way with significant swelling of the left arm which resolved with antibiotic treatment. Wound culture from 10/05 growing coag(-) Staph. - Continue vancomycin - Stopped Zosyn on 10/07 given culture results - Discussed with cardiology on 10/07 without strong indication of cause of diffuse mottling; possibly due to skin cracking - Wound RN following - Using Eucerin cream to hands and feet as he reports this was helping at [facility] (3) Elevated troponin: Troponin was 0.15 and 0.17 on admission. EKG was non-ischemic, and the patient does not endorse chest pain, shortness of breath, or other anginal equivalent. Seen by cardiology with no further testing required. - Continue telemetry, but otherwise no additional inpatient work-up - Appreciate cardiology input (4) Cardiomyopathy: Chronic systolic heart failure without exacerbation. EF 45-50%. Possible that his LLE edema is partially responsible, but I think less likely. - Monitor volume status. (5) Atrial fibrillation: Chronic afib. On warfarin for anticoagulation and metoprolol for rate control. - Per cardiology, holding metoprolol as it could be contributing to his falls - Continue anticoagulation (Switched to DOAC on 10/07.) (6) Anemia: Baseline hemoglobin seems to be 12-14. On admission, was down to 9.6. No signs of bleeding apart from his significant bruising. Borderline macrocytic, but B12 was 474 in 08/2018. Folate was 8.8 on 10/07. Stool hemoccult was negative on 10/07. - Follow up 2 further hemoccults - Monitor hgb level while inpatient (7) Falls: Large number of recent falls per patient. Likely multifactorial with cardiology looking into orthostasis/BP changes, age, frailty, and possibly some neuropathy. - PT/OT - Cardiology getting orthostatics and possibly a tilt-table test (8) TIA (transient ischemic attack): Likely embolic due to history of atrial fibrillation. - Continue Plavix and warfarin. (9) Restless leg syndrome: RLS plus arterial insufficiency likely contributing to patient's symptoms. - Continue tramadol (10) Hyperlipidemia LDL goal <70: - Continue atorvastatin 10 mg daily (11) DVT prophylaxis: On warfarin Subjective 88yo M w/ hx of afib, cardiomyopathy, and prior TIA who presents with ankle pain and swelling for the last several weeks. This morning, he reports reduced ankle pain. He does not think it's gotten any better since his arrival. Still feels swollen and sore to movement. Otherwise reports no fevers/chills, chest pain, shortness of breath, abdominal pain, nausea, or vomiting. Physical Exam 2 Vital Signs (Past 24 Hours): Last Vital Signs Temp 37.0 C 10/08/18 11:58 Pulse 80 10/08/18 11:58 Resp 22 10/08/18 11:58 BP 142/71 H 10/08/18 11:58 Pulse Ox 96 10/08/18 11:58 Constitutional: WD/WN, vitals as above Eyes: EOM intact bilaterally; no conjunctival abnormality ENMT: external ear and nose normal, oropharynx normal Neck: trachea midline, no thyromegaly normal visual inspection Respiratory: normal respiratory effort, lungs clear to auscultation no respiratory distress Cardiovascular: RRR, no murmur, no edema Gastrointestinal (Abdomen): Inspection/Auscultation: abdomen normal to inspection; abdomen not distended Musculoskeletal: no cyanosis or clubbing, extremities motor strength 5/5 Skin: no rashes, warm and dry + rash (Diffuse mottling of skin tone on the hands and feet.) Neurologic: moves all extremities and awake Psychiatric: Orientation: alert, oriented to person and cooperative _ (1) Anemia Anemia type: unspecified type Bone marrow failure anemia type: Chronic kidney disease stage: Folate deficiency anemia type: Hemolytic anemia type: Iron deficiency anemia type: Other causes of anemia: Vitamin B12 deficiency anemia type: Qualified Code(s): D64.9 - Anemia, unspecified (2) Atrial fibrillation Atrial fibrillation type: permanent Qualified Code(s): I48.2 - Chronic atrial fibrillation (3) Cellulitis of lower extremity Laterality: left Qualified Code(s): L03.116 - Cellulitis of left lower limb (4) Falls Encounter type: initial encounter Qualified Code(s): W19.XXXA - Unspecified fall, initial encounter (5) Cardiomyopathy Cardiomyopathy type: dilated Qualified Code(s): I42.0 - Dilated cardiomyopathy
[2018-10-08] MEDS: TRAMADOL HCL 50 MG TABLET PO PRN (19:30)
[2018-10-08] MEDS: VANCOMYCIN HCL 1,250 MG in SODIUM CHLORIDE 0.9% 250 ML IV SCH (21:47)
[2018-10-09] MEDS: ACETAMINOPHEN 325 MG TAB PO PRN (05:30)
[2018-10-09 06:05] LABS: Hematocrit (blood only) 28.9 % (42-52); Hemoglobin 9.3 g/dL (14.0-18.0); Mean Corpuscular Hgb Conc 32.2 g/dL (32-36); Mean Corpuscular Volume 96.7 fL (80-100); Platelet Count 149 K/uL (130-400); RDW Standard Deviation 56.1 fL (36.4-46.3); Red Blood Count 2.99 M/uL (4.7-6.1); White Blood Count 10.42 K/uL (4.8-10.8)
[2018-10-09] MEDS: TRAMADOL HCL 50 MG TABLET PO PRN ×2 (06:31→20:05)
[2018-10-09 06:46] LABS: BUN Creatinine Ratio 18.3 (10-20); Calcium 7.6 mg/dl (8.5-10.1); Creatinine Clr Calc Pharmacy 51.6 ml/min; Est GFR (African American) 80.9; Est GFR (Non-African American) 69.8; Magnesium 1.9 mg/dl (1.8-2.4); Potassium 3.6 mmol/L (3.5-5.1)
[2018-10-09] MEDS: SERTRALINE HCL 50 MG TABLET PO SCH (07:51)
[2018-10-09] MEDS: APIXABAN 5 MG TABLET PO SCH ×2 (07:51→20:06)
[2018-10-09] MEDS: ATORVASTATIN 10 MG TAB PO SCH (07:51)
[2018-10-09] MEDS: CHOLECALCIFEROL 1,000 UNITS TAB PO SCH (07:52)
[2018-10-09] MEDS: POTASSIUM CHLORIDE 10 MEQ TABCR PO SCH (07:52)
[2018-10-09] MEDS: CLOPIDOGREL BISULFATE 75 MG TAB PO SCH (07:52)
[2018-10-09] MEDS: EUCERIN CR 120 GM JAR EXT SCH ×2 (07:55→20:07)
--- NOTE | 2018-10-09 11:28 | Cardiology Progress Note ---
Date of Service October 09, 2018 Assessment & Plan (1) Elevated troponin: His troponin was minimally elevated with a maximum of 0.178, this is abnormal and the cause is not obvious. He was asymptomatic with no anginal symptoms or shortness of breath. ECG showed no acute ischemic changes. His presentation is therefore not consistent with an ACS. No additional cardiovascular studies/intervention recommended in this regard. (2) Atrial fibrillation: He has permanent atrial fibrillation. His rate has been adequately controlled here, and he may not require beta mark therapy for rate control moving forward. There is also concern given his frequent falls recently that there could be an arrhythmia and/or drop in his blood pressure leading to the falls. I discontinued his beta-mark. We will continue to monitor him on telemetry to see how his heart rate responds, so far does not increase substantially with discontinuation of beta-blockade and I am going to leave him off of it. He has been chronically anticoagulated with warfarin. I would recommend switching to Eliquis, started yesterday. Given his normal creatinine now and his weight he should be on 5 mg twice a day (3) Cardiomyopathy: He has a history of a cardiomyopathy with an EF of 45-50%, if anything that is somewhat improved now. He does have a dilated right ventricle, although his pulmonary pressures are not tremendously elevated so the cause of that is unclear but it might contribute to his peripheral edema. Gentle diuresis may be reasonable, however I would be careful with fluid loss to see if that is related to his falling. His weight varies quite a bit here, possibly due to methods of weighing him, but overall he does not seem to have had an increase in weight. (4) Falls: He reports frequent falls recently. He cannot bear weight on his left leg consistently but we have been able to get orthostatic blood pressures. Although his blood pressure very somewhat it is not entirely consistent with orthostasis. The cause of his falling remains unclear. Subjective Today he is definitely feeling better, he is still having discomfort in his left leg but his ankle is better. No chest discomfort. Physical Exam 2 Vital Signs (Past 24 Hours): Last Vital Signs Temp 37.4 C 10/09/18 06:57 Pulse 99 H 10/09/18 06:57 Resp 19 10/09/18 06:57 BP 137/65 10/09/18 06:57 Pulse Ox 91 10/09/18 06:57 Physical Exam: Constitutional: Alert, cooperative and in no distress. Pulmonary: Clear to auscultation bilaterally. Cardiac: Irregular rhythm with no murmur, gallop or rub. Abdomen: Soft, nontender with normal bowel sounds. Extremities: +3 edema of the left leg, none on the right. Skin: Ecchymosis of left lower extremity continues. Results & Data Diagnostic Findings Telemetry: Atrial fibrillation with a controlled heart rate _ (1) Atrial fibrillation Atrial fibrillation type: permanent Qualified Code(s): I48.2 - Chronic atrial fibrillation (2) Cardiomyopathy Cardiomyopathy type: dilated Qualified Code(s): I42.0 - Dilated cardiomyopathy (3) Falls Encounter type: initial encounter Qualified Code(s): W19.XXXA - Unspecified fall, initial encounter
--- NOTE | 2018-10-09 14:45 | Hospitalist Progress Note ---
Date of Service October 09, 2018 Assessment & Plan (1) Arterial insufficiency of lower extremity: Left lower extremity arterial Dopplers on 10/05 showed significant stenosis in the distal anterior tibial and dorsalis pedis arteries. He also has cracks and hemorrhages on the hands and feet. However, foot is not cool to touch and has normal neurovascular exam. - Monitor skin (patient reports it is actually improving) - Continue warfarin and Plavix - Vascular consult on Wednesday (2) Cellulitis of lower extremity: Discussed with Dr. Byrd on 10/06, and a prior episode of cellulitis presented the same way with significant swelling of the left arm which resolved with antibiotic treatment. Wound culture from 10/05 growing coag(-) Staph. - Continue vancomycin - Stopped Zosyn on 10/07 given culture results - Discussed with cardiology on 10/07 without strong indication of cause of diffuse mottling; possibly due to skin cracking - Wound RN following - Using Eucerin cream to hands and feet as he reports this was helping at [facility] (3) Elevated troponin: Troponin was 0.15 and 0.17 on admission. EKG was non-ischemic, and the patient does not endorse chest pain, shortness of breath, or other anginal equivalent. Seen by cardiology with no further testing required. - Continue telemetry, but otherwise no additional inpatient work-up - Appreciate cardiology input (4) Cardiomyopathy: Chronic systolic heart failure without exacerbation. EF 45-50%. Possible that his LLE edema is partially responsible, but I think less likely. - Monitor volume status. (5) Atrial fibrillation: Chronic afib. Was on warfarin for anticoagulation and metoprolol for rate control. - Per cardiology, holding metoprolol as it could be contributing to his falls - Continue anticoagulation (Switched to DOAC on 10/07.) (6) Anemia: Baseline hemoglobin seems to be 12-14. On admission, was down to 9.6. No signs of bleeding apart from his significant bruising. Borderline macrocytic, but B12 was 474 in 08/2018. Folate was 8.8 on 10/07. Stool hemoccults were negative. - Follow up 1 further hemoccult - Monitor hgb level while inpatient (7) Falls: Large number of recent falls per patient. Likely multifactorial with cardiology looking into orthostasis/BP changes, age, frailty, and possibly some neuropathy. - PT/OT - Cardiology getting orthostatics and possibly a tilt-table test once patient can put weight on his feet again. (8) TIA (transient ischemic attack): Likely embolic due to history of atrial fibrillation. - Continue Plavix and warfarin. (9) Restless leg syndrome: RLS plus arterial insufficiency likely contributing to patient's symptoms. - Continue tramadol (10) Hyperlipidemia LDL goal <70: - Continue atorvastatin 10 mg daily (11) DVT prophylaxis: On apixaban for afib Dispo: Slow improvement from cellulitis standpoint. Probably have vascular see him on Wednesday once someone is back, then have PT/OT work with him, and likely discharge back to [facility] once he can ambulate ok. Subjective 88yo M w/ hx of afib, cardiomyopathy, and prior TIA who presents with ankle pain and swelling for the last several weeks. This morning, he reports reduced ankle pain. Overall, can now put weight on it and feeling better. Otherwise reports no fevers/chills, chest pain, shortness of breath, abdominal pain, nausea, or vomiting. Physical Exam 2 Vital Signs (Past 24 Hours): Last Vital Signs Temp 36.3 C L 10/09/18 11:19 Pulse 76 10/09/18 11:19 Resp 17 10/09/18 11:19 BP 130/64 10/09/18 11:19 Pulse Ox 93 10/09/18 11:19 Constitutional: WD/WN, vitals as above Eyes: EOM intact bilaterally; no conjunctival abnormality ENMT: external ear and nose normal, oropharynx normal Neck: trachea midline, no thyromegaly normal visual inspection Respiratory: normal respiratory effort, lungs clear to auscultation no respiratory distress Cardiovascular: RRR, no murmur, no edema Gastrointestinal (Abdomen): Inspection/Auscultation: abdomen normal to inspection; abdomen not distended Musculoskeletal: no cyanosis or clubbing, extremities motor strength 5/5 Skin: no rashes, warm and dry + rash (Diffuse mottling of skin tone on the hands and feet.) Neurologic: moves all extremities and awake Psychiatric: Orientation: alert, oriented to person and cooperative _ (1) Cellulitis of lower extremity Laterality: left Qualified Code(s): L03.116 - Cellulitis of left lower limb (2) Cardiomyopathy Cardiomyopathy type: dilated Qualified Code(s): I42.0 - Dilated cardiomyopathy (3) Atrial fibrillation Atrial fibrillation type: permanent Qualified Code(s): I48.2 - Chronic atrial fibrillation (4) Anemia Anemia type: unspecified type Bone marrow failure anemia type: Chronic kidney disease stage: Folate deficiency anemia type: Hemolytic anemia type: Iron deficiency anemia type: Other causes of anemia: Vitamin B12 deficiency anemia type: Qualified Code(s): D64.9 - Anemia, unspecified (5) Falls Encounter type: initial encounter Qualified Code(s): W19.XXXA - Unspecified fall, initial encounter
[2018-10-09] MEDS ORDERED: VANCOMYCIN TROUGH ONE (21:30)
[2018-10-09] MEDS: VANCOMYCIN HCL 1,250 MG in SODIUM CHLORIDE 0.9% 250 ML IV SCH (21:59)
[2018-10-10] MEDS: ACETAMINOPHEN 325 MG TAB PO PRN (00:01)
[2018-10-10 06:26] LABS: Hematocrit (blood only) 27.6 % (42-52); Hemoglobin 8.8 g/dL (14.0-18.0); Mean Corpuscular Hgb Conc 31.9 g/dL (32-36); Mean Corpuscular Volume 97.2 fL (80-100); Mean Platelet Volume 8.3 fL (7.4-10.4); Platelet Count 159 K/uL (130-400); RDW Standard Deviation 55.9 fL (36.4-46.3); Red Blood Count 2.84 M/uL (4.7-6.1); White Blood Count 9.49 K/uL (4.8-10.8)
[2018-10-10 06:56] LABS: BUN Creatinine Ratio 19.2 (10-20); Calcium 7.9 mg/dl (8.5-10.1); Creatinine Clr Calc Pharmacy 45.5 ml/min; Est GFR (African American) 68.6; Est GFR (Non-African American) 59.2; Magnesium 2.2 mg/dl (1.8-2.4); Potassium 3.6 mmol/L (3.5-5.1)
[2018-10-10] MEDS: CHOLECALCIFEROL 1,000 UNITS TAB PO SCH (07:49)
[2018-10-10] MEDS: ATORVASTATIN 10 MG TAB PO SCH (07:50)
[2018-10-10] MEDS: SERTRALINE HCL 50 MG TABLET PO SCH (07:50)
[2018-10-10] MEDS: POTASSIUM CHLORIDE 10 MEQ TABCR PO SCH (07:51)
[2018-10-10] MEDS: APIXABAN 5 MG TABLET PO SCH ×2 (07:52→19:50)
[2018-10-10] MEDS: EUCERIN CR 120 GM JAR EXT SCH ×2 (08:00→19:50)
--- NOTE | 2018-10-10 09:08 | Pharmacy Report ---
Pharmacy Abx Dose Short Note - Date of Service October 10, 2018 - Assessment & Plan Assessment * 88 year old M receiving Vancomycin for treatment of lower extremity cellulitis. * Today is Day # 6/10 of Vancomycin therapy. * Culture grew Coag neg staph- no sensitivities. Plan Vancomycin * Trough level of 13.8 mcg/mL is therapeutic for skin/skin structure infections. * Goal trough = 10-20 mcg/ml. * This level was drawn after 3rd maintenance dose and renal function has remained pretty stable (Scr = 1.1 today, 0.96 yesterday). * Continue dose of Vancomycin 1250 mg IV every 24 hours. * Will re-check another trough if renal function changes. Otherwise, current dosing is appropriate. Pharmacy will continue to follow and will adjust dose/frequency as necessary. Thank you.
--- NOTE | 2018-10-10 10:04 | Cardiology Progress Note ---
Date of Service October 10, 2018 Assessment & Plan (1) Elevated troponin: His troponin was minimally elevated with a maximum of 0.178, this is abnormal but the cause is not obvious. He was asymptomatic from the cardiac standpoint with no anginal symptoms or shortness of breath on admission. ECG showed no acute ischemic changes. His presentation is therefore not consistent with an ACS. No additional cardiovascular studies/intervention recommended in this regard. (2) Atrial fibrillation: He has permanent atrial fibrillation and was on beta-blockade readmission. His rate has been adequately controlled here off of the beta- mark, and he may not require beta mark therapy for rate control moving forward. There is also concern given his frequent falls recently that there could be an arrhythmia and/or drop in his blood pressure leading to the falls. I discontinued his beta-mark. We will continue to monitor him on telemetry to see how his heart rate responds, so far does not increase substantially with discontinuation of beta-blockade and I am going to leave him off of it. He has been chronically anticoagulated with warfarin. I would recommend switching to Eliquis, started this admission. Given his normal creatinine now and his weight he should be on 5 mg twice a day (3) Cardiomyopathy: He has a history of a cardiomyopathy with an EF of 45-50%, if anything that is somewhat improved now. He does have a dilated right ventricle, although his pulmonary pressures are not tremendously elevated so the cause of that is unclear but it might contribute to his peripheral edema. Gentle diuresis may be reasonable, however I would be careful with fluid loss to see if that is related to his falling. His weight varies quite a bit here, possibly due to methods of weighing him, but overall he does not seem to have had an increase in weight. (4) Falls: He reports frequent falls recently. He cannot bear weight on his left leg consistently but we have been able to get orthostatic blood pressures. Although his blood pressure very somewhat it is not entirely consistent with orthostasis. The cause of his falling remains unclear. Subjective Today he is very confused, he thinks he is in the wrong room and he tells me he is frustrated because no one will help him get back to where he belongs. He is still having some left leg and ankle discomfort. Physical Exam 2 Vital Signs (Past 24 Hours): Last Vital Signs Temp 36.4 C L 10/10/18 07:55 Pulse 83 10/10/18 07:55 Resp 18 10/10/18 07:55 BP 155/72 H 10/10/18 07:55 Pulse Ox 94 10/10/18 07:55 Results & Data Diagnostic Findings Telemetry: He remains in atrial fibrillation, his heart rate is acceptable for minimal activities. _ (1) Atrial fibrillation Atrial fibrillation type: permanent Qualified Code(s): I48.2 - Chronic atrial fibrillation (2) Cardiomyopathy Cardiomyopathy type: dilated Qualified Code(s): I42.0 - Dilated cardiomyopathy (3) Falls Encounter type: initial encounter Qualified Code(s): W19.XXXA - Unspecified fall, initial encounter
[2018-10-10] MEDS: TAMSULOSIN HCL 0.4 MG CAP PO SCH (13:08)
--- NOTE | 2018-10-10 16:15 | Hospitalist Progress Note ---
Date of Service October 10, 2018 Assessment & Plan (1) Arterial insufficiency of lower extremity: (2) Cellulitis of lower extremity: (3) Elevated troponin: (4) Cardiomyopathy: (5) Atrial fibrillation: (6) Anemia: (7) Falls: (8) TIA (transient ischemic attack): (9) Restless leg syndrome: (10) Hyperlipidemia LDL goal <70: (11) DVT prophylaxis: 88yo M w/ hx of afib, cardiomyopathy, and prior TIA who presents with ankle pain and swelling for the last several weeks. left Lower extremity cellulitis, Obvious red and hot today, hx of left arm cellulitis , resolved Wound culture from 10/05 growing coag(-) Staph. Continue vancomycin Stopped Zosyn on 10/07 given culture results Using Eucerin cream to hands and feet as he reports this was helping at [facility] Arterial insufficiency of lower extremity: Left lower extremity arterial Dopplers on 10/05 showed significant stenosis in the distal anterior tibial and dorsalis pedis arteries. Continue warfarin and Plavix, Vascular consult on Wednesday Elevated troponin: Troponin was 0.15 and 0.17 on admission. EKG was non- ischemic, no Chest pain, no shortness of breath, or other anginal equivalent. Seen by cardiology with no further testing required. Cardiomyopathy: Chronic systolic heart failure without exacerbation. EF 45-50%. Likely euvolemic, Appreciate cardiology input Atrial fibrillation: Chronic afib. Was on warfarin for anticoagulation and metoprolol for rate control. Per cardiology, holding metoprolol as it could be contributing to his falls, Continue anticoagulation (Switched to DOAC on 10/07. ) Anemia: Baseline hemoglobin seems to be 12-14. On admission, was down to 9.6. today is 8.8, No signs of bleeding apart from his significant bruising. Borderline macrocytic, but B12 was 474 in 08/2018. Folate was 8.8 on 10/07. Stool hemoccults were negative. Follow up 1 further hemoccult, cont Monitor hgb level while inpatient Large number of recent falls per patient. Likely multifactorial with cardiology looking into orthostasis/BP changes, age, frailty, and possibly some neuropathy. All because of patient's age use and deconditioning, cont PT/OT TIA (transient ischemic attack): Likely embolic due to history of atrial fibrillation. Continue Plavix and warfarin. Restless leg syndrome, Hyperlipidemia LDL goal <70, Continue current medication Follow-up vascular to see him cont PT/OT, likely discharge back to [facility] once he can ambulate ok After left lower ext cellulitis improving Subjective Patient seems frustrated because of decreased hearing, nursing staff reported He has been confused When I seen him he was only orientated to name and birthday but not place, Afebrile, report that lower extremity pain and hot, Otherwise review of system is limited No fever and chills, Eating okay, fair appetite Denies chest pain palpitationDenied lower extremity swelling Denies nausea vomiting abdominal pain diarrhea constipation Denies dysuria urgency and frequency's, Physical Exam 2 Vital Signs (Past 24 Hours): Last Vital Signs Temp 36.8 C 10/10/18 15:02 Pulse 105 H 10/10/18 15:02 Resp 17 10/10/18 15:02 BP 154/74 H 10/10/18 15:02 Pulse Ox 96 10/10/18 15:02 Physical Exam: Constitutional: Frail, confused,WD/WN, vitals as above Eyes: EOM intact bilaterally; no conjunctival abnormality ENMT: external ear and nose normal, oropharynx normal Neck: trachea midline, no thyromegalym, normal visual inspection Respiratory: Mild decreased respiratory sounds, normal respiratory effort, No wheezing rhonchi or crackles, no respiratory distress Cardiovascular: RRR, no murmur, no edema Gastrointestinal (Abdomen) Inspection/Auscultation: abdomen normal to inspection; abdomen not distended Musculoskeletal no cyanosis or clubbing, extremities motor strength 5/5 Skin: Left lower extremity obvious erythema and hot in palpation, Neurologic: moves all extremities and awake Psychiatric: Orientation: alert, But confused, Results & Data Laboratory Results Laboratory Results - last 24 hr 10/09/18 10/10/18 10/10/18 21:35 05:56 05:56 WBC 9.49 RBC 2.84 L Hgb 8.8 L Hct 27.6 L MCV 97.2 MCH 31.0 MCHC 31.9 L RDW Std Deviation 55.9 H RDW Coeff of Michelle 16.0 H Plt Count 159 MPV 8.3 Sodium 132 L Potassium 3.6 Chloride 97 L Carbon Dioxide 30 Anion Gap 5.0 BUN 21 H Creatinine 1.10 Est Cr Clr Drug Dosing 45.5 Est GFR ( Amer) 68.6 Est GFR (Non-Af Amer) 59.2 BUN/Creatinine Ratio 19.2 Glucose 97 Calcium 7.9 L Magnesium 2.2 Vancomycin Trough 13.8 _ (1) Cellulitis of lower extremity Laterality: left Qualified Code(s): L03.116 - Cellulitis of left lower limb (2) Cardiomyopathy Cardiomyopathy type: dilated Qualified Code(s): I42.0 - Dilated cardiomyopathy (3) Atrial fibrillation Atrial fibrillation type: permanent Qualified Code(s): I48.2 - Chronic atrial fibrillation (4) Anemia Anemia type: unspecified type Bone marrow failure anemia type: Chronic kidney disease stage: Folate deficiency anemia type: Hemolytic anemia type: Iron deficiency anemia type: Other causes of anemia: Vitamin B12 deficiency anemia type: Qualified Code(s): D64.9 - Anemia, unspecified (5) Falls Encounter type: initial encounter Qualified Code(s): W19.XXXA - Unspecified fall, initial encounter
[2018-10-10] MEDS: MoRPHine SULFATE 2 MG/ML CARP IV PRN (19:52)
[2018-10-10] MEDS: VANCOMYCIN HCL 1,250 MG in SODIUM CHLORIDE 0.9% 250 ML IV SCH (22:40)
[2018-10-11] MEDS ORDERED: LORazepam 0.5 MG TAB PO STA (00:51)
[2018-10-11] MEDS ORDERED: LORazepam 0.5 MG TAB ONE (00:57)
--- NOTE | 2018-10-11 00:58 | Progress Note ---
Date of Service October 11, 2018 1:46 am Received text page noting patient has been complaining of leg pain and a headache throughout the night. Morphine did not seem to help. Apparently he is constantly yelling about his headache and has not been sleeping well. Brief chart review: Patient was admitted for left lower extremity cellulitis. Other issues include arterial insufficiency and TIA. On discussion with Dr. Engel, ordered CT head (due to being on anticoagulation) and a single dose of Ativan. On his return from CT, saw patient at bedside. He is awake, alert, and said that his headache is completely resolved. He asked why that was the case. He denied any leg pain or other acute concerns. He then wished me a happy new year. Exam: Awake, alert, appears overall comfortable and pleasantly conversant. Moving all extremities spontaneously. No overt neuro deficits. CT head (overnight preliminary read) stated no ICH or acute cortical infarct. Plan: - No further acute treatment at this time. Jordan Leyva MD PGY2 overnight call Physical Exam 2 Vital Signs (Past 24 Hours): Last Vital Signs Temp 37.2 C 10/10/18 23:20 Pulse 88 10/10/18 23:20 Resp 18 10/10/18 23:20 BP 144/67 H 10/10/18 23:20 Pulse Ox 92 10/10/18 23:20
[2018-10-11 07:03] LABS: Creatinine Clr Calc Pharmacy 47.2 ml/min; Est GFR (African American) 72.6; Est GFR (Non-African American) 62.6
--- NOTE | 2018-10-11 08:29 | CT Scan Report ---
CT OF THE HEAD WITHOUT CONTRAST CLINICAL HISTORY: worsening BRANDON on anticoagulation COMPARISON STUDY: Head CT September 15, 2018. CT DOSE: 691.05 mGy.cm TECHNIQUE: Helical axial images of the head were obtained without IV contrast. Automated exposure con trol was utilized for the study. A dose lowering technique was utilized adhering to the principles o f ALARA. FINDINGS: No acute intracranial hemorrhage, midline shift or mass affect is present. Ventricular syst em is stable. Basilar cisterns are patent. There are no extra-axial collections. White matter hypoden sities are unchanged. There are no findings to suggest acute dural sinus thrombosis or acute territor ial infarct. There are are no calvarial fractures. IMPRESSION: No acute intracranial findings. Electronically signed by: Dave Starr M.D. 10/11/2018 8:28 AM
[2018-10-11] MEDS: CHOLECALCIFEROL 1,000 UNITS TAB PO SCH (08:32)
[2018-10-11] MEDS: CLOPIDOGREL BISULFATE 75 MG TAB PO SCH (08:32)
[2018-10-11] MEDS: SERTRALINE HCL 50 MG TABLET PO SCH (08:32)
[2018-10-11] MEDS: ATORVASTATIN 10 MG TAB PO SCH (08:32)
[2018-10-11] MEDS: APIXABAN 5 MG TABLET PO SCH ×2 (08:33→20:43)
[2018-10-11] MEDS: POTASSIUM CHLORIDE 10 MEQ TABCR PO SCH (08:33)
[2018-10-11] MEDS: EUCERIN CR 120 GM JAR EXT SCH ×2 (08:33→20:42)
[2018-10-11] MEDS: TAMSULOSIN HCL 0.4 MG CAP PO SCH (08:33)
--- NOTE | 2018-10-11 15:28 | Hospitalist Progress Note ---
Date of Service October 11, 2018 Assessment & Plan (1) Arterial insufficiency of lower extremity: (2) Cellulitis of lower extremity: (3) Elevated troponin: (4) Cardiomyopathy: (5) Atrial fibrillation: (6) Anemia: (7) Falls: (8) TIA (transient ischemic attack): (9) Restless leg syndrome: (10) Hyperlipidemia LDL goal <70: (11) DVT prophylaxis: 88yo M w/ hx of afib, cardiomyopathy, and prior TIA who presents with ankle pain and swelling for several weeks. left Lower extremity cellulitis, has been on vancomycin, no obvious improving, will continue Vanco and infectious disease consult hx of left arm cellulitis , resolved Wound culture from 10/05 growing coag(-) Staph Stopped Zosyn on 10/07 given culture results Using Eucerin cream to hands and feet as he reports this was helping at [facility] Arterial insufficiency of lower extremity: Left lower extremity arterial Dopplers on 10/05 showed significant stenosis in the distal anterior tibial and dorsalis pedis arteries. Continue warfarin and Plavix, Vascular consulted, hopefully can see patient as soon as possible, but if not possible need to have outpatient follow-up Elevated troponin upon admission: Troponin was 0.15 and 0.17 on admission. EKG was non-ischemic, no Chest pain, no shortness of breath, or other anginal equivalent. Seen by cardiology with no further testing required. Cardiomyopathy: Chronic systolic heart failure without exacerbation. EF 45-50%. Likely euvolemic, Appreciate cardiology input Atrial fibrillation: Chronic afib. Was on warfarin for anticoagulation and metoprolol for rate control. Per cardiology, holding metoprolol as it could be contributing to his falls, Continue anticoagulation (Switched to DOAC on 10/07. ) Anemia: Baseline hemoglobin seems to be 12-14. On admission, was down to 9.6. today is 8.8, No signs of bleeding apart from his significant bruising. Borderline macrocytic, but B12 was 474 in 08/2018. Folate was 8.8 on 10/07. Stool hemoccults were negative. cont Monitor hgb level while inpatient Frequent falls prior to this admission per patient. Likely multifactorial with cardiology looking into orthostasis/BP changes, age, frailty, and possibly some neuropathy. All because of patient's age use and deconditioning, cont PT/OT TIA (transient ischemic attack): Likely embolic due to history of atrial fibrillation. Continue Plavix and warfarin. Restless leg syndrome, Hyperlipidemia LDL goal <70, Continue current medication Follow-up vascular to see him cont PT/OT, likely discharge back to [facility] once he can ambulate ok , and After left lower ext cellulitis improving Subjective Patient seems doing okay today, was up with therapist, reported left neck pain when walking, He was anxious last night, got 1 dose of Ativan, and had a head CT studies done which was unremarkable for acute disease Afebrile, report that lower extremity pain and hot, Otherwise review of system is limited No fever and chills, Eating okay, fair appetite Denies chest pain palpitationDenied lower extremity swelling Denies nausea vomiting abdominal pain diarrhea constipation Denies dysuria urgency and frequency's, Physical Exam 2 Vital Signs (Past 24 Hours): Last Vital Signs Temp 36.7 C 10/11/18 11:13 Pulse 84 10/11/18 11:13 Resp 20 10/11/18 11:13 BP 151/82 H 10/11/18 11:13 Pulse Ox 95 10/11/18 11:13 Physical Exam: Constitutional: Frail, confused,WD/WN, looks better than yesterday Eyes: EOM intact bilaterally; no conjunctival abnormality ENMT: external ear and nose normal, oropharynx normal Neck: trachea midline, no thyromegalym, normal visual inspection Respiratory: Mild decreased respiratory sounds, normal respiratory effort, No wheezing rhonchi or crackles, no respiratory distress Cardiovascular: RRR, no murmur, no edema Gastrointestinal (Abdomen) Inspection/Auscultation: abdomen normal to inspection; abdomen not distended Musculoskeletal no cyanosis or clubbing, extremities motor strength 5/5 Skin: Left lower extremity continue to have obvious erythema and hot in palpation, Neurologic: moves all extremities and awake Psychiatric: Orientation: alert, But confused, Results & Data Laboratory Results Laboratory Results - last 24 hr 10/11/18 06:09 Creatinine 1.05 Est Cr Clr Drug Dosing 47.2 Est GFR ( Amer) 72.6 Est GFR (Non-Af Amer) 62.6 _ (1) Cellulitis of lower extremity Laterality: left Qualified Code(s): L03.116 - Cellulitis of left lower limb (2) Cardiomyopathy Cardiomyopathy type: dilated Qualified Code(s): I42.0 - Dilated cardiomyopathy (3) Atrial fibrillation Atrial fibrillation type: permanent Qualified Code(s): I48.2 - Chronic atrial fibrillation (4) Anemia Anemia type: unspecified type Bone marrow failure anemia type: Chronic kidney disease stage: Folate deficiency anemia type: Hemolytic anemia type: Iron deficiency anemia type: Other causes of anemia: Vitamin B12 deficiency anemia type: Qualified Code(s): D64.9 - Anemia, unspecified (5) Falls Encounter type: initial encounter Qualified Code(s): W19.XXXA - Unspecified fall, initial encounter
[2018-10-11] MEDS: TRAMADOL HCL 50 MG TABLET PO PRN (20:46)
[2018-10-11] MEDS: VANCOMYCIN HCL 1,250 MG in SODIUM CHLORIDE 0.9% 250 ML IV SCH (22:47)
[2018-10-11] MEDS: ACETAMINOPHEN 325 MG TAB PO PRN (22:48)
[2018-10-11] MEDS: MoRPHine SULFATE 2 MG/ML CARP IV PRN (23:56)
[2018-10-12 07:22] LABS: Basophils # (auto) 0.02 K/uL (0-0.2); Basophils % (auto) 0.2 %; Eosinophils # (auto) 0.45 K/uL (0-0.5); Eosinophils % (auto) 4.2 %; Hematocrit (blood only) 27.5 % (42-52); Hemoglobin 8.8 g/dL (14.0-18.0); Immature Granulocytes # (auto) 0.03 K/uL (0.00-0.02); Immature Granulocytes % (auto) 0.3 %; Lymphocytes # (auto) 1.01 K/uL (1.2-3.4); Lymphocytes % (auto) 9.3 %; Mean Corpuscular Volume 96.8 fL (80-100); Monocytes # (auto) 0.58 K/uL (0.11-0.59); Monocytes % (auto) 5.4 %; Neutrophils # (auto) 8.74 K/uL (1.4-6.5); Neutrophils % (auto) 80.6 %; Platelet Count 203 K/uL (130-400); RDW Coefficient of Variation 15.8 % (11.5-14.5); RDW Standard Deviation 56.2 fL (36.4-46.3); Red Blood Count 2.84 M/uL (4.7-6.1); White Blood Count 10.83 K/uL (4.8-10.8)
[2018-10-12] MEDS: TAMSULOSIN HCL 0.4 MG CAP PO SCH (07:55)
[2018-10-12] MEDS: APIXABAN 5 MG TABLET PO SCH ×2 (07:56→21:21)
[2018-10-12] MEDS: SERTRALINE HCL 50 MG TABLET PO SCH (07:56)
[2018-10-12] MEDS: POTASSIUM CHLORIDE 10 MEQ TABCR PO SCH (07:56)
[2018-10-12] MEDS: ATORVASTATIN 10 MG TAB PO SCH (07:57)
[2018-10-12] MEDS: CHOLECALCIFEROL 1,000 UNITS TAB PO SCH (07:57)
[2018-10-12] MEDS: EUCERIN CR 120 GM JAR EXT SCH ×2 (07:58→21:23)
[2018-10-12 08:02] LABS: Creatinine Clr Calc Pharmacy 49.5 ml/min; Est GFR (Non-African American) 66.4; Magnesium 2.1 mg/dl (1.8-2.4); Potassium 3.9 mmol/L (3.5-5.1)
--- NOTE | 2018-10-12 08:44 | Cardiology Progress Note ---
Date of Service October 12, 2018 Assessment & Plan (1) Elevated troponin: His troponin was minimally elevated with a maximum of 0.178, this is abnormal but the cause is not obvious. He was asymptomatic from the cardiac standpoint with no anginal symptoms or shortness of breath on admission. ECG showed no acute ischemic changes. His presentation is therefore not consistent with an ACS. No additional cardiovascular studies/intervention recommended in this regard. (2) Atrial fibrillation: He has permanent atrial fibrillation and was on beta-blockade readmission. His rate has been adequately controlled here off of the beta- mark, and he may not require beta mark therapy for rate control moving forward. There is also concern given his frequent falls recently that there could be an arrhythmia and/or drop in his blood pressure leading to the falls. I discontinued his beta-mark. We will continue to monitor him on telemetry to see how his heart rate responds, so far does not increase substantially with discontinuation of beta-blockade and I am going to leave him off of it. He had been chronically anticoagulated with warfarin, switched to Eliquis this admission which he seems to be tolerating well. Given his normal creatinine now and his weight he should be on 5 mg twice a day (3) Cardiomyopathy: He has a history of a cardiomyopathy with an EF of 45-50%, if anything that is somewhat improved now. He does have a dilated right ventricle, although his pulmonary pressures are not tremendously elevated so the cause of that is unclear but it might contribute to his peripheral edema. Gentle diuresis may be reasonable, however I would be careful with fluid loss to see if that is related to his falling. His weight varies quite a bit here, possibly due to methods of weighing him, but overall he does not seem to have had an increase in weight. (4) Falls: He reports frequent falls recently. He could not bear weight on his left leg consistently on admission due to leg pain. Although his blood pressure varies somewhat it is not entirely consistent with orthostasis and he has had no low blood pressure reading for a number of days. The cause of his falling remains unclear, no clear evidence that it is orthostatic and does not appear to be due to an arrhythmia. Subjective He seems to be in good spirits today, he does not seem to be confused this morning. He is complaining of an intermittent headache but no cardiovascular symptoms including no palpitations, chest discomfort or shortness of breath. Physical Exam 2 Vital Signs (Past 24 Hours): Last Vital Signs Temp 36.4 C L 10/12/18 07:01 Pulse 76 10/12/18 07:01 Resp 16 10/12/18 07:01 BP 156/81 H 10/12/18 07:01 Pulse Ox 90 10/12/18 07:01 Physical Exam: Constitutional: Alert, cooperative and in no distress. Pulmonary: Clear to auscultation bilaterally. Cardiac: Irregular rhythm with no murmur, gallop or rub. Abdomen: Soft, nontender with normal bowel sounds. Extremities: +1 edema of the left leg, none on the right. Skin: Ecchymosis of left lower extremity improved. Results & Data Diagnostic Findings Telemetry: Atrial fibrillation with acceptable heart rate response. _ (1) Atrial fibrillation Atrial fibrillation type: permanent Qualified Code(s): I48.2 - Chronic atrial fibrillation (2) Cardiomyopathy Cardiomyopathy type: dilated Qualified Code(s): I42.0 - Dilated cardiomyopathy (3) Falls Encounter type: initial encounter Qualified Code(s): W19.XXXA - Unspecified fall, initial encounter
[2018-10-12] MEDS: ACETAMINOPHEN 325 MG TAB PO PRN (09:47)
[2018-10-12] MEDS: TRAMADOL HCL 50 MG TABLET PO PRN (09:48)
--- NOTE | 2018-10-12 10:47 | Infectious Disease Consult ---
Date of Consultation October 12, 2018 Assessment & Plan (1) Cellulitis of lower extremity: Patient with slowly resolving cellulitis of the left lower extremity likely because of severe peripheral arterial disease. For now, would continue patient on IV vancomycin, but will consider use of IV dalbavancin after discharge. Will discuss with all involved. Will follow. (2) Arterial insufficiency of lower extremity: History of Present Illness Reason for Consultation: Severe and intractable left lower extremity cellulitis Attending Physician: Eddie Cloud MD, PhD, [facility] History of Present Illness 88-year-old male with history of severe peripheral arterial disease, atrial fibrillation, who was admitted originally October 05 after several falls with pain in both legs with elevated troponin. Was treated empirically for possible left lower extremity cellulitis with vancomycin and Zosyn. Zosyn has been discontinued, only minimal improvement noted. Patient has had arterial studies consistent with significant vascular disease of the left leg. Patient has not had fever or chills. Cultures have been unremarkable except for wound culture with coagulase-negative staph. Patient unable to provide any other adequate history. Allergies Allergy/AdvReac Type Severity Reaction Status Date / Time celecoxib Allergy Unknown Verified 10/05/18 16:20 Bactrim AdvReac Intermediate DYSPEPSIA Verified 03/05/18 14:22 cephalexin AdvReac Intermediate DYSPEPSIA Verified 10/05/18 16:20 esomeprazole AdvReac Intermediate GI SYMPTOMS Verified 10/05/18 16:20 naproxen AdvReac Intermediate DYSPEPSIA Verified 10/05/18 16:20 NSAIDS (Non-Steroidal AdvReac Intermediate esaphogeal Verified 10/05/18 16:20 Anti-Inflamma lesions sulfamethoxazole AdvReac Intermediate DYSPEPSIA Verified 10/05/18 16:20 trimethoprim AdvReac Intermediate DYSPEPSIA Verified 10/05/18 16:20 Cephalosporins AdvReac Mild NAUSEA Verified 10/05/18 16:20 Home Medications Home Medications Medication Instructions Recorded Confirmed Type acetaminophen 325 mg tablet 650 mg PO Q4H PRN tab 08/08/18 10/05/18 History atorvastatin 10 mg tablet 10 mg PO QAM 08/08/18 10/05/18 History cholecalciferol (vitamin D3) 2,000 2,000 units PO QAM 08/08/18 10/05/18 History unit capsule clopidogrel 75 mg tablet 75 mg PO Q2D 08/08/18 10/05/18 History dutasteride 0.5 mg capsule 0.5 mg PO QAM 08/08/18 10/05/18 History lisinopril 5 mg tablet 5 mg PO QAM 08/08/18 10/05/18 History melatonin 3 mg tablet 3 mg PO HS 08/08/18 10/05/18 History potassium chloride ER 10 mEq 10 meq PO QAM 08/08/18 10/05/18 History capsule,extended release sennosides 8.6 mg tablet 8.6 mg PO BID PRN 08/08/18 10/05/18 History sertraline 25 mg tablet 25 mg PO QAM 08/08/18 10/05/18 History tramadol 50 mg tablet 50 mg PO TID tab 08/08/18 10/05/18 History warfarin 4 mg tablet 4 mg PO PM 08/08/18 10/05/18 History metoprolol tartrate 25 mg PO BID 09/15/18 10/05/18 History bisacodyl [Dulcolax (bisacodyl)] 10 mg [place] Q48H PRN 10/05/18 10/05/18 History calcium carbonate [Tums] 500 mg PO UD PRN 10/05/18 10/05/18 History magnesium hydroxide [Milk of 30 ml PO Q48H PRN 10/05/18 10/05/18 History Magnesia] sodium phosphates [Fleet Enema] 1 dose [place] Q72H PRN 10/05/18 10/05/18 History torsemide 20 mg PO QAM PRN 10/05/18 10/05/18 History Patient History Medical History Atrial fibrillation (Acute) Pneumothorax (Acute) TIA (transient ischemic attack) (Acute) Acid reflux (Chronic) Surgical History H/O right inguinal hernia repair (Acute) History of colon resection (Acute) History of hemiarthroplasty of shoulder (Acute) History of total right hip replacement (Acute) Hx of tonsillectomy (Acute) Social History marital status: / Current Living Situation: Personal Care Facility current occupational status: retired Other Information That Helps Us Care for You: No Feels Safe at Home: Yes Safety Concerns: Feels Safe At This Time Smoking Status: Unknown if ever smoked Hx Alcohol Use: No Hx Substance Use: No Beliefs That Will Affect Care: None Communication Ability: Effective Review of Systems Not adequately obtainable because of patient's mental status Physical Exam 2 Vital Signs (Past 24 Hours): Last Vital Signs Temp 36.4 C L 10/12/18 07:01 Pulse 76 10/12/18 07:01 Resp 16 10/12/18 07:01 BP 156/81 H 10/12/18 07:01 Pulse Ox 90 10/12/18 07:01 Constitutional: WD/WN, vitals as above comfortable; no acute distress Frail-appearing Eyes: PERRL, conjunctivae normal, anicteric sclerae ENMT: external ear and nose normal, oropharynx normal Neck: trachea midline, no thyromegaly neck nontender Respiratory: normal respiratory effort, lungs clear to auscultation normal percussion; does not use accessory muscles Cardiovascular: Heart Sounds: normal S1 and normal S2; no gallop, no murmur and no cardiac rub Irregularly irregular Diminished peripheral pulses Gastrointestinal (Abdomen): normal bowel sounds, soft, nontender, no hepatosplenomegaly Musculoskeletal: Head/Neck/Chest: normocephalic and head atraumatic Spine: no cervical spinal tenderness, no thoracic spinal tenderness and no lumbar spinal tenderness Neurologic: patellar DTR's 2+ bilat, sensation intact no focal motor deficits Psychiatric: Orientation: alert and cooperative Confused Lymphatic: no cervical or axillary lymphadenopathy no inguinal lymphadenopathy Results & Data Laboratory Results Short CBC 10/12/18 Range/Units 06:50 WBC 10.83 H (4.8-10.8) K/uL Hgb 8.8 L (14.0-18.0) g/dL Hct 27.5 L (42-52) % Plt Count 203 (130-400) K/uL BMP 10/12/18 06:50 Sodium 129 L Potassium 3.9 Chloride 95 L Carbon Dioxide 27 BUN 23 H Creatinine 1.00 Glucose 97 Calcium 8.0 L Diagnostic Findings Microbiology 10/05/18 20:30 Leg,Left Gram Stain - Final 10/05/18 20:30 Leg,Left Wound Culture - Final Coag negative Staphylococcus US arterial duplex LE LT CLINICAL HISTORY: 88 years-old Male presenting with left calf redness and swelling, clinical concern for arterial insufficiency. TECHNIQUE: Real-time grayscale and color and spectral Doppler ultrasound imaging of the left lower extremity arteries was performed. Measurements calculated based on NASCET criteria. COMPARISON: None. FINDINGS: LEFT: Common femoral artery: Significant atherosclerotic plaque without significant narrowing. Triphasic waveforms. Peak systolic velocity (PSV) 71 cm/s. Deep femoral artery: Atherosclerotic plaque at the origin without significant narrowing. Triphasic waveforms. PSV 69 cm/s. Superficial femoral artery: Mild atherosclerotic plaque without significant narrowing. Triphasic waveforms. PSV C2-87 cm/s. Popliteal artery: Mild atherosclerotic plaque without significant narrowing. Monophasic waveforms. PSV 102 cm/s. Posterior tibial artery: Patent. Monophasic waveforms. PSV 38-99 cm/s. Peroneal artery: Patent. Monophasic waveforms. PSV 31-93 cm/s. Anterior tibial artery: Patent. Monophasic waveforms. PSV 49-257 cm/s. Dorsalis pedis: Patent. Monophasic waveforms. PSV 146 cm/s. ANKLE/BRACHIAL INDEX (ABNER): Brachial: Right: mmHg, Left: mmHg. Ankle (Posterior tibial): Right: mmHg, Left: mmHg. Ankle (Dorsalis pedis): Right: mmHg, Left: mmHg. ABNER: Right: , Left: . Reference ranges: Normal Ankle/Brachial Index (ABNER) 1.0-1.4; 0.91-0.99 borderline; < or = 0.9 abnormal (0.7-0.89 mild, 0.51-0.69 moderate, < or = 0.5 severe peripheral arterial disease). Normal Toe/Brachial Index (TBI) > or = 0.6; < 0.6 abnormal (0.34-0.59 mild, 0.12 -0.34 moderate, < or = 0.11 severe peripheral arterial disease). IMPRESSION: 1. Focal elevated velocities in the distal anterior tibial artery and dorsalis pedis artery suggest hemodynamically significant stenosis at these sites. Diffuse atherosclerotic plaque in the remainder of the vessels. 2. Unable to perform ankle-brachial indices. Electronically signed by: Felix Bowling M.D. 10/05/2018 5:04 PM Dictated: 10/05/181699 Transcribed: 10/05/18 170 _ (1) Cellulitis of lower extremity Laterality: left Qualified Code(s): L03.116 - Cellulitis of left lower limb
--- NOTE | 2018-10-12 14:13 | Hospitalist Progress Note ---
Date of Service October 12, 2018 Assessment & Plan (1) Arterial insufficiency of lower extremity: (2) Cellulitis of lower extremity: (3) Elevated troponin: (4) Cardiomyopathy: (5) Atrial fibrillation: (6) Anemia: (7) Falls: (8) TIA (transient ischemic attack): (9) Restless leg syndrome: (10) Hyperlipidemia LDL goal <70: (11) DVT prophylaxis: 88yo M w/ hx of afib, cardiomyopathy, and prior TIA who presents with ankle pain and swelling for several weeks. left Lower extremity cellulitis, has been on vancomycin, today has some improving, So slowly improving is likely because of peripheral artery disease, will continue Vanco ID input appreciated hx of left arm cellulitis , resolved Wound culture from 10/05 growing coag(-) Stapjas Stopped Zosyn on 10/07 given culture results Using Eucerin cream to hands and feet as he reports this was helping at [facility] Arterial insufficiency of lower extremity: Left lower extremity arterial Dopplers on 10/05 showed significant stenosis in the distal anterior tibial and dorsalis pedis arteries. Continue warfarin and Plavix, Vascular consulted, hopefully can see patient as soon as possible, but if not possible need to have outpatient follow-up Elevated troponin upon admission: Troponin was 0.15 and 0.17 on admission. EKG was non-ischemic, no Chest pain, no shortness of breath, or other anginal equivalent. Seen by cardiology with no further testing required. Cardiomyopathy: Chronic systolic heart failure without exacerbation. EF 45-50%. Likely euvolemic, but has mild fine crackles in left lower lung, will watch fluid balance, Appreciate cardiology input Atrial fibrillation: Chronic afib. Was on warfarin for anticoagulation and metoprolol for rate control. Per cardiology, holding metoprolol as it could be contributing to his falls, Continue anticoagulation (Switched to DOAC on 10/07. ) Anemia: Baseline hemoglobin seems to be 12-14. On admission, was down to 9.6. today is 8.8, related to stable, no signs of bleeding apart from his significant bruising. Borderline macrocytic , but B12 was 474 in 08/2018. Folate was 8.8 on 10/07. Stool hemoccults were negative Frequent falls prior to this admission per patient. Likely multifactorial with cardiology looking into orthostasis/BP changes, age, frailty, and possibly some neuropathy. All because of patient's age use and deconditioning, cont PT/OT TIA (transient ischemic attack): Likely embolic due to history of atrial fibrillation. Continue Plavix and warfarin. Restless leg syndrome, Hyperlipidemia LDL goal <70, Continue current medication Follow-up vascular to see him cont PT/OT, likely discharge back to [facility] once he can ambulate ok , and After left lower ext cellulitis improving MedSurg today Subjective Patient cont doing okay , however occasionally confused, and out of bed without ringing the cutler, therefore he is on one-to-one sitter not. Report left lower extremity pain is significant better today Report was not on Hatch catheter at home and not on nasal cannula oxygen at home prior to this admission Otherwise review of system is limited No fever and chills, Eating good fair appetite Denies chest pain palpitationDenied lower extremity swelling Denies nausea vomiting abdominal pain diarrhea constipation Denies dysuria urgency and frequency's Physical Exam 2 Vital Signs (Past 24 Hours): Last Vital Signs Temp 37.4 C 10/12/18 11:56 Pulse 89 10/12/18 11:56 Resp 20 10/12/18 11:56 BP 131/69 10/12/18 11:56 Pulse Ox 91 10/12/18 11:56 Physical Exam: Constitutional: Frail, pleasant, awake alert orientated to time place, name and birthday, WD/WN, continue looks better than yesterday Eyes: EOM intact bilaterally; no conjunctival abnormality ENMT: external ear and nose normal, oropharynx normal Neck: trachea midline, no thyromegalym, normal visual inspection Respiratory: Mild decreased respiratory sounds, normal respiratory effort, left lower lung possible fine crackle , no wheezing rhonchi, no respiratory distress Cardiovascular: RRR, no murmur, no edema Gastrointestinal (Abdomen) Inspection/Auscultation: abdomen normal to inspection; abdomen not distended Musculoskeletal no cyanosis or clubbing, extremities motor strength 5/5 Skin: Left lower extremity erythema and hot in palpation is somehow better than yesterday Neurologic: moves all extremities and awake Psychiatric: Orientation: alert, Results & Data Laboratory Results Laboratory Results - last 24 hr 10/12/18 10/12/18 06:50 06:50 WBC 10.83 H RBC 2.84 L Hgb 8.8 L Hct 27.5 L MCV 96.8 MCH 31.0 MCHC 32.0 RDW Std Deviation 56.2 H RDW Coeff of Michelle 15.8 H Plt Count 203 MPV 8.0 Immature Gran % (Auto) 0.3 Neut % (Auto) 80.6 Lymph % (Auto) 9.3 [place] % (Auto) 5.4 Eos % (Auto) 4.2 Baso % (Auto) 0.2 Immature Gran # (Auto) 0.03 H Neut # (Auto) 8.74 H Lymph # (Auto) 1.01 L [place] # (Auto) 0.58 Eos # (Auto) 0.45 Baso # (Auto) 0.02 Sodium 129 L Potassium 3.9 Chloride 95 L Carbon Dioxide 27 Anion Gap 7.0 BUN 23 H Creatinine 1.00 Est Cr Clr Drug Dosing 49.5 Est GFR ( Amer) 77.0 Est GFR (Non-Af Amer) 66.4 BUN/Creatinine Ratio 23.0 H Glucose 97 Calcium 8.0 L Magnesium 2.1 _ (1) Anemia Anemia type: unspecified type Bone marrow failure anemia type: Chronic kidney disease stage: Folate deficiency anemia type: Hemolytic anemia type: Iron deficiency anemia type: Other causes of anemia: Vitamin B12 deficiency anemia type: Qualified Code(s): D64.9 - Anemia, unspecified (2) Atrial fibrillation Atrial fibrillation type: permanent Qualified Code(s): I48.2 - Chronic atrial fibrillation (3) Cellulitis of lower extremity Laterality: left Qualified Code(s): L03.116 - Cellulitis of left lower limb (4) Cardiomyopathy Cardiomyopathy type: dilated Qualified Code(s): I42.0 - Dilated cardiomyopathy (5) Falls Encounter type: initial encounter Qualified Code(s): W19.XXXA - Unspecified fall, initial encounter
[2018-10-12] MEDS ORDERED: VANCOMYCIN TROUGH ONE (21:30)
[2018-10-12] MEDS: VANCOMYCIN HCL 1,250 MG in SODIUM CHLORIDE 0.9% 250 ML IV SCH (22:05)
[2018-10-13] MEDS: TRAMADOL HCL 50 MG TABLET PO PRN (05:06)
[2018-10-13 06:40] LABS: Basophils # (auto) 0.04 K/uL (0-0.2); Basophils % (auto) 0.4 %; Eosinophils # (auto) 0.48 K/uL (0-0.5); Eosinophils % (auto) 4.9 %; Hematocrit (blood only) 26.7 % (42-52); Hemoglobin 8.6 g/dL (14.0-18.0); Immature Granulocytes # (auto) 0.02 K/uL (0.00-0.02); Immature Granulocytes % (auto) 0.2 %; Lymphocytes # (auto) 1.05 K/uL (1.2-3.4); Lymphocytes % (auto) 10.6 %; Mean Corpuscular Hgb Conc 32.2 g/dL (32-36); Mean Corpuscular Volume 96.4 fL (80-100); Mean Platelet Volume 8.3 fL (7.4-10.4); Monocytes # (auto) 0.49 K/uL (0.11-0.59); Neutrophils # (auto) 7.78 K/uL (1.4-6.5); Neutrophils % (auto) 78.9 %; Platelet Count 232 K/uL (130-400); RDW Standard Deviation 55.6 fL (36.4-46.3); Red Blood Count 2.77 M/uL (4.7-6.1); White Blood Count 9.86 K/uL (4.8-10.8)
[2018-10-13] MEDS: ACETAMINOPHEN 325 MG TAB PO PRN (06:48)
[2018-10-13 07:16] LABS: Calcium 7.8 mg/dl (8.5-10.1); Creatinine Clr Calc Pharmacy 54.4 ml/min; Est GFR (African American) 86.3; Est GFR (Non-African American) 74.5; Magnesium 2.1 mg/dl (1.8-2.4); Potassium 4.2 mmol/L (3.5-5.1)
[2018-10-13] MEDS: SERTRALINE HCL 50 MG TABLET PO SCH (08:42)
[2018-10-13] MEDS: TAMSULOSIN HCL 0.4 MG CAP PO SCH (08:43)
[2018-10-13] MEDS: APIXABAN 5 MG TABLET PO SCH ×2 (08:43→20:54)
[2018-10-13] MEDS: POTASSIUM CHLORIDE 10 MEQ TABCR PO SCH (08:43)
[2018-10-13] MEDS: ATORVASTATIN 10 MG TAB PO SCH (08:44)
[2018-10-13] MEDS: CLOPIDOGREL BISULFATE 75 MG TAB PO SCH (08:44)
[2018-10-13] MEDS: CHOLECALCIFEROL 1,000 UNITS TAB PO SCH (08:44)
[2018-10-13] MEDS: EUCERIN CR 120 GM JAR EXT SCH ×2 (08:45→20:54)
--- NOTE | 2018-10-13 09:47 | Hospitalist Progress Note ---
Date of Service October 13, 2018 Assessment & Plan (1) Arterial insufficiency of lower extremity: (2) Cellulitis of lower extremity: (3) Elevated troponin: (4) Cardiomyopathy: (5) Atrial fibrillation: (6) Anemia: (7) Falls: (8) TIA (transient ischemic attack): (9) Restless leg syndrome: (10) Hyperlipidemia LDL goal <70: (11) DVT prophylaxis: 88yo M w/ hx of afib, cardiomyopathy, and prior TIA who presents with ankle pain and swelling for several weeks. left Lower extremity cellulitis, has been on vancomycin, continue improving 2-3 days, almost resolved So slowly improving is likely because of peripheral artery disease ID input appreciated, plan to change to doxycycline 100 mg twice daily tomorrow hx of left arm cellulitis , resolved Wound culture from 10/05 growing coag(-) Staph Stopped Zosyn on 10/07 given culture results Using Eucerin cream to hands and feet as he reports this was helping at [facility] Arterial insufficiency of lower extremity: Left lower extremity arterial Dopplers on 10/05 showed significant stenosis in the distal anterior tibial and dorsalis pedis arteries. Continue warfarin and Plavix, Vascular consulted, Elevated troponin upon admission: Troponin was 0.15 and 0.17 on admission. EKG was non-ischemic, Cardiomyopathy: Chronic systolic heart failure without exacerbation. EF 45-50%. Likely euvolemic, bilateral lungs fine crackles, will restart home dose torsemide 20 mg p.o. daily, appreciate cardiology input Atrial fibrillation: Chronic afib. Was on warfarin for anticoagulation and metoprolol for rate control. Per cardiology, holding metoprolol as it could be contributing to his falls, Coumadin was changed to Eliquis during this hospitalization, Anemia: Baseline hemoglobin seems to be 12-14. On admission, was down to 9.6. today is 8.8, related to stable, no signs of bleeding apart from his significant bruising. Borderline macrocytic , but B12 was 474 in 08/2018. Folate was 8.8 on 10/07. Stool hemoccults were negative Frequent falls prior to this admission per patient. Likely multifactorial with cardiology looking into orthostasis/BP changes, age, frailty, and possibly some neuropathy. All because of patient's age use and deconditioning, cont PT/OT TIA (transient ischemic attack): Likely embolic due to history of atrial fibrillation. Continue Plavix and warfarin. Restless leg syndrome, Hyperlipidemia LDL goal <70, Continue current medication Follow-up vascular to see him cont PT/OT, likely discharge back to [facility] once he can ambulate ok , and After left lower ext cellulitis improving Still on nasal cannula oxygen, will remove it if able to keep pulse ox more than 88%, which he was not on oxygen at home Planning to talk to infectious disease switch vancomycin to p.o antibiotics such as doxycycline, and for the discharge plan possible tomorrow Subjective Doing well, reading newspaper, report decreased appetite, food is not good in this hospital, However reported left lower extremity pain and swelling is much better, Otherwise review of system is limited No fever and chills, Eating good fair appetite Denies chest pain palpitationDenied lower extremity swelling Denies nausea vomiting abdominal pain diarrhea constipation Denies dysuria urgency and frequency's Physical Exam 2 Vital Signs (Past 24 Hours): Last Vital Signs Temp 36.4 C L 10/13/18 07:51 Pulse 87 10/13/18 07:51 Resp 18 10/13/18 07:51 BP 136/81 10/13/18 07:51 Pulse Ox 93 10/13/18 07:07 Physical Exam: Constitutional: Frail, pleasant, awake alert orientated x4, cooperative in physical exam, Eyes: EOM intact bilaterally; no conjunctival abnormality ENMT: external ear and nose normal, oropharynx normal Neck: trachea midline, no thyromegalym, normal visual inspection Respiratory: Mild decreased respiratory sounds, normal respiratory effort, bob left lower lungs fine crackles, no wheezing rhonchi, no respiratory distress Cardiovascular: RRR, no murmur, no edema Gastrointestinal (Abdomen) Inspection/Auscultation: abdomen normal to inspection; abdomen not distended Musculoskeletal no cyanosis or clubbing, extremities motor strength 5/5 Skin: Left lower extremity erythema and hot in palpation is better than yesterday Neurologic: moves all extremities and awake Psychiatric: Orientation: alert, Results & Data Laboratory Results Laboratory Results - last 24 hr 10/12/18 10/13/18 10/13/18 21:50 06:22 06:22 WBC 9.86 RBC 2.77 L Hgb 8.6 L Hct 26.7 L MCV 96.4 MCH 31.0 MCHC 32.2 RDW Std Deviation 55.6 H RDW Coeff of Michelle 16.0 H Plt Count 232 MPV 8.3 Immature Gran % (Auto) 0.2 Neut % (Auto) 78.9 Lymph % (Auto) 10.6 [place] % (Auto) 5.0 Eos % (Auto) 4.9 Baso % (Auto) 0.4 Immature Gran # (Auto) 0.02 Neut # (Auto) 7.78 H Lymph # (Auto) 1.05 L [place] # (Auto) 0.49 Eos # (Auto) 0.48 Baso # (Auto) 0.04 Sodium 127 L Potassium 4.2 Chloride 93 L Carbon Dioxide 25 Anion Gap 9.0 BUN 21 H Creatinine 0.91 Est Cr Clr Drug Dosing 54.4 Est GFR ( Amer) 86.3 Est GFR (Non-Af Amer) 74.5 BUN/Creatinine Ratio 23.0 H Glucose 94 Calcium 7.8 L Magnesium 2.1 Vancomycin Trough 16.6 _ (1) Anemia Anemia type: unspecified type Bone marrow failure anemia type: Chronic kidney disease stage: Folate deficiency anemia type: Hemolytic anemia type: Iron deficiency anemia type: Other causes of anemia: Vitamin B12 deficiency anemia type: Qualified Code(s): D64.9 - Anemia, unspecified (2) Atrial fibrillation Atrial fibrillation type: permanent Qualified Code(s): I48.2 - Chronic atrial fibrillation (3) Cellulitis of lower extremity Laterality: left Qualified Code(s): L03.116 - Cellulitis of left lower limb (4) Cardiomyopathy Cardiomyopathy type: dilated Qualified Code(s): I42.0 - Dilated cardiomyopathy (5) Falls Encounter type: initial encounter Qualified Code(s): W19.XXXA - Unspecified fall, initial encounter
--- NOTE | 2018-10-13 14:29 | Infectious Disease Progress Nt ---
Date of Service October 13, 2018 Assessment & Plan (1) Cellulitis of lower extremity: Patient with slowly resolving cellulitis of the left lower extremity likely because of severe peripheral arterial disease. Patient to continue vancomycin today, consider transition to oral antibiotics with doxycycline 100 mg twice daily tomorrow. Will follow. (2) Arterial insufficiency of lower extremity: Subjective Patient seen in follow-up for left leg cellulitis in the setting of severe peripheral arterial disease. States the pain in his left leg is improving. Remains afebrile. Tolerating antibiotic without apparent difficulty. Review of Systems All systems reviewed & are unremarkable except as noted in HPI & below Physical Exam 2 Vital Signs (Past 24 Hours): Last Vital Signs Temp 36.4 C L 10/13/18 07:51 Pulse 87 10/13/18 07:51 Resp 18 10/13/18 07:51 BP 136/81 10/13/18 07:51 Pulse Ox 93 10/13/18 10:09 Constitutional: WD/WN, vitals as above comfortable; no acute distress Eyes: PERRL, conjunctivae normal, anicteric sclerae ENMT: external ear and nose normal, oropharynx normal Neck: trachea midline, no thyromegaly neck nontender Respiratory: normal respiratory effort, lungs clear to auscultation normal percussion; does not use accessory muscles Cardiovascular: Heart Sounds: normal S1 and normal S2; no gallop, no murmur and no cardiac rub Gastrointestinal (Abdomen): normal bowel sounds, soft, nontender, no hepatosplenomegaly Musculoskeletal: Head/Neck/Chest: normocephalic and head atraumatic Spine: no cervical spinal tenderness, no thoracic spinal tenderness and no lumbar spinal tenderness Skin: normal turgor Slightly improved left lower extremity erythema Neurologic: patellar DTR's 2+ bilat, sensation intact no focal motor deficits Psychiatric: Orientation: alert and cooperative Lymphatic: no cervical or axillary lymphadenopathy no inguinal lymphadenopathy Results & Data Laboratory Results Laboratory Results - last 48 hr 10/12/18 10/13/18 10/13/18 21:50 06:22 06:22 WBC 9.86 RBC 2.77 L Hgb 8.6 L Hct 26.7 L MCV 96.4 MCH 31.0 MCHC 32.2 RDW Std Deviation 55.6 H RDW Coeff of Michelle 16.0 H Plt Count 232 MPV 8.3 Immature Gran % (Auto) 0.2 Neut % (Auto) 78.9 Lymph % (Auto) 10.6 [place] % (Auto) 5.0 Eos % (Auto) 4.9 Baso % (Auto) 0.4 Immature Gran # (Auto) 0.02 Neut # (Auto) 7.78 H Lymph # (Auto) 1.05 L [place] # (Auto) 0.49 Eos # (Auto) 0.48 Baso # (Auto) 0.04 Sodium 127 L Potassium 4.2 Chloride 93 L Carbon Dioxide 25 Anion Gap 9.0 BUN 21 H Creatinine 0.91 Est Cr Clr Drug Dosing 54.4 Est GFR ( Amer) 86.3 Est GFR (Non-Af Amer) 74.5 BUN/Creatinine Ratio 23.0 H Glucose 94 Calcium 7.8 L Magnesium 2.1 Vancomycin Trough 16.6 10/14/18 05:43 WBC RBC Hgb Hct MCV MCH MCHC RDW Std Deviation RDW Coeff of Michelle Plt Count MPV Immature Gran % (Auto) Neut % (Auto) Lymph % (Auto) [place] % (Auto) Eos % (Auto) Baso % (Auto) Immature Gran # (Auto) Neut # (Auto) Lymph # (Auto) [place] # (Auto) Eos # (Auto) Baso # (Auto) Sodium Potassium Chloride Carbon Dioxide Anion Gap BUN Creatinine 1.17 Est Cr Clr Drug Dosing 42.3 Est GFR ( Amer) 63.7 Est GFR (Non-Af Amer) 54.9 BUN/Creatinine Ratio Glucose Calcium Magnesium Vancomycin Trough Diagnostic Findings Microbiology 10/05/18 20:30 Leg,Left Gram Stain - Final 10/05/18 20:30 Leg,Left Wound Culture - Final Coag negative Staphylococcus _ (1) Cellulitis of lower extremity Laterality: left Qualified Code(s): L03.116 - Cellulitis of left lower limb
[2018-10-13] MEDS: TORSEMIDE 20 MG TAB PO SCH (18:27)
[2018-10-13] MEDS: VANCOMYCIN HCL 1,250 MG in SODIUM CHLORIDE 0.9% 250 ML IV SCH (22:36)
[2018-10-13 22:57] VITALS: TEMP 98.1
[2018-10-14 06:30] LABS: Creatinine Clr Calc Pharmacy 42.3 ml/min; Est GFR (African American) 63.7; Est GFR (Non-African American) 54.9
[2018-10-14] MEDS: CHOLECALCIFEROL 1,000 UNITS TAB PO SCH (07:58)
[2018-10-14] MEDS: ATORVASTATIN 10 MG TAB PO SCH (07:59)
[2018-10-14] MEDS: TORSEMIDE 20 MG TAB PO SCH (07:59)
[2018-10-14] MEDS: SERTRALINE HCL 50 MG TABLET PO SCH (07:59)
[2018-10-14] MEDS: TAMSULOSIN HCL 0.4 MG CAP PO SCH (07:59)
[2018-10-14] MEDS: APIXABAN 5 MG TABLET PO SCH (07:59)
[2018-10-14] MEDS: POTASSIUM CHLORIDE 10 MEQ TABCR PO SCH (07:59)
[2018-10-14 08:02] VITALS: BP 152/75
[2018-10-14] MEDS ORDERED: DOXYCYCLINE HYCLATE 100 MG CAP PO SCH (09:00)
[2018-10-14] MEDS: EUCERIN CR 120 GM JAR EXT SCH (09:16)
--- NOTE | 2018-10-14 10:21 | Consultation ---
Date of Consultation October 14, 2018 Assessment & Plan (1) Arterial insufficiency of lower extremity: This patient underwent duplex imaging of the left lower extremity. There is no significant narrowing seen throughout. The only area of question was the dorsalis pedis which showed a stenosis as well as the distal anterior tibial artery. On exam however there is no evidence of arterial insufficiency lower extremity has bounding pulses in his feet. At this point there is no indication for any vascular intervention or follow-up. Thank you very much for letting us participate in the care of this patient. History of Present Illness Reason for Consultation: Cellulitis of the left lower extremity. Attending Physician: Eddie Cloud MD, PhD, [facility] History of Present Illness This is an 88-year-old gentleman was admitted with frequent falling. He had a slightly elevated troponins. He was found to have edema and cellulitis of the left lower extremity with ulcerations seen in the pretibial area and the medial aspect of his great toe. He denies any claudication symptoms. He did have pain in both feet his entire admission. He claims this is intermittent. His left foot is feeling better at this point with less pain than previously in the left foot. He also has a history of atrial fibrillation. Allergies Allergy/AdvReac Type Severity Reaction Status Date / Time celecoxib Allergy Unknown Verified 10/05/18 16:20 Bactrim AdvReac Intermediate DYSPEPSIA Verified 03/05/18 14:22 cephalexin AdvReac Intermediate DYSPEPSIA Verified 10/05/18 16:20 esomeprazole AdvReac Intermediate GI SYMPTOMS Verified 10/05/18 16:20 naproxen AdvReac Intermediate DYSPEPSIA Verified 10/05/18 16:20 NSAIDS (Non-Steroidal AdvReac Intermediate esaphogeal Verified 10/05/18 16:20 Anti-Inflamma lesions sulfamethoxazole AdvReac Intermediate DYSPEPSIA Verified 10/05/18 16:20 trimethoprim AdvReac Intermediate DYSPEPSIA Verified 10/05/18 16:20 Cephalosporins AdvReac Mild NAUSEA Verified 10/05/18 16:20 Home Medications Home Medications Medication Instructions Recorded Confirmed Type acetaminophen 325 mg tablet 650 mg PO Q4H PRN tab 08/08/18 10/05/18 History atorvastatin 10 mg tablet 10 mg PO QAM 08/08/18 10/05/18 History cholecalciferol (vitamin D3) 2,000 2,000 units PO QAM 08/08/18 10/05/18 History unit capsule clopidogrel 75 mg tablet 75 mg PO Q2D 08/08/18 10/05/18 History dutasteride 0.5 mg capsule 0.5 mg PO QAM 08/08/18 10/05/18 History lisinopril 5 mg tablet 5 mg PO QAM 08/08/18 10/05/18 History melatonin 3 mg tablet 3 mg PO HS 08/08/18 10/05/18 History potassium chloride ER 10 mEq 10 meq PO QAM 08/08/18 10/05/18 History capsule,extended release sennosides 8.6 mg tablet 8.6 mg PO BID PRN 08/08/18 10/05/18 History sertraline 25 mg tablet 25 mg PO QAM 08/08/18 10/05/18 History tramadol 50 mg tablet 50 mg PO TID tab 08/08/18 10/05/18 History warfarin 4 mg tablet 4 mg PO PM 08/08/18 10/05/18 History metoprolol tartrate 25 mg PO BID 09/15/18 10/05/18 History bisacodyl [Dulcolax (bisacodyl)] 10 mg IA Q48H PRN 10/05/18 10/05/18 History calcium carbonate [Tums] 500 mg PO UD PRN 10/05/18 10/05/18 History magnesium hydroxide [Milk of 30 ml PO Q48H PRN 10/05/18 10/05/18 History Magnesia] sodium phosphates [Fleet Enema] 1 dose IA Q72H PRN 10/05/18 10/05/18 History torsemide 20 mg PO QAM PRN 10/05/18 10/05/18 History doxycycline hyclate 100 mg PO BID 10 Days #20 cap 10/14/18 Rx Patient History Medical History Atrial fibrillation (Acute) Pneumothorax (Acute) TIA (transient ischemic attack) (Acute) Acid reflux (Chronic) Surgical History H/O right inguinal hernia repair (Acute) History of colon resection (Acute) History of hemiarthroplasty of shoulder (Acute) History of total right hip replacement (Acute) Hx of tonsillectomy (Acute) Social History marital status: / Current Living Situation: Personal Care Facility current occupational status: retired Other Information That Helps Us Care for You: No Feels Safe at Home: Yes Safety Concerns: Feels Safe At This Time Smoking Status: Unknown if ever smoked Hx Alcohol Use: No Hx Substance Use: No Beliefs That Will Affect Care: None Communication Ability: Effective Review of Systems Constitutional: as per Subjective / HPI Cardiovascular: + calf pain; no claudication Integumentary: + skin ulcer (left leg) Physical Exam 2 Vital Signs (Past 24 Hours): Last Vital Signs Temp 36.7 C 10/14/18 08:01 Pulse 85 10/14/18 08:01 Resp 18 10/14/18 08:01 BP 152/75 H 10/14/18 08:01 Pulse Ox 93 10/14/18 08:01 Constitutional: WD/WN, vitals as above well nourished Respiratory: normal respiratory effort and + respiratory distress Cardiovascular: Vessels: femoral pulses present, posterior tibial pulses present and dorsalis pedis pulses present A. FIB Neurologic: normal touch/pain/proprioception and moves all extremities
[2018-10-14 13:12] VITALS: O2SAT 93
[2018-10-14 13:16] VITALS: PULSE 82
--- NOTE | 2018-10-14 13:49 | Discharge Summary ---
Date of Service October 14, 2018 Admission HPI Per Admitting Provider Patient is an 88-year-old male with a past medical history including atrial fibrillation, TIAs, peripheral arterial disease, restless leg syndrome, and hypertension, who has been falling recently due to pain in his feet bilaterally , left greater than right. He has been taking all of his medications as directed. He has not had any recent injuries. Principal Diagnosis Left lower extremity cellulitis Discharge Data Allergies Allergy/AdvReac Type Severity Reaction Status Date / Time celecoxib Allergy Unknown Verified 10/05/18 16:20 Bactrim AdvReac Intermediate DYSPEPSIA Verified 03/05/18 14:22 cephalexin AdvReac Intermediate DYSPEPSIA Verified 10/05/18 16:20 esomeprazole AdvReac Intermediate GI SYMPTOMS Verified 10/05/18 16:20 naproxen AdvReac Intermediate DYSPEPSIA Verified 10/05/18 16:20 NSAIDS (Non-Steroidal AdvReac Intermediate esaphogeal Verified 10/05/18 16:20 Anti-Inflamma lesions sulfamethoxazole AdvReac Intermediate DYSPEPSIA Verified 10/05/18 16:20 trimethoprim AdvReac Intermediate DYSPEPSIA Verified 10/05/18 16:20 Cephalosporins AdvReac Mild NAUSEA Verified 10/05/18 16:20 Consultations 10/11/18 15:30 Consult Infectious Diseases Routine 10/13/18 09:43 Consult Vascular Surgery Routine 10/05/18 17:12 ED Decision to Admit Stat 10/05/18 20:25 Consult Cardiology Routine Consult Case Management - Discharge Planning Routine Ordered Studies 10/11/18 00:51 CT head/brain wo con Urgent 10/05/18 15:30 US arterial duplex LE LT Stat US venous doppler LE Stat Hospital Course (1) Arterial insufficiency of lower extremity: (2) Cellulitis of lower extremity: (3) Elevated troponin: (4) Cardiomyopathy: (5) Atrial fibrillation: (6) Anemia: (7) Falls: (8) TIA (transient ischemic attack): (9) Restless leg syndrome: (10) Hyperlipidemia LDL goal <70: (11) DVT prophylaxis: 88yo M w/ hx of afib, cardiomyopathy, and prior TIA who presents with ankle pain and swelling for several weeks. left Lower extremity cellulitis, has been on vancomycin, continue improving 2-3 days, almost resolved So slowly improving is likely because of peripheral artery disease ID input appreciated, plan to change to doxycycline 100 mg twice daily tomorrow hx of left arm cellulitis , resolved Wound culture from 10/05 growing coag(-) Staph Stopped Zosyn on 10/07 given culture results Using Eucerin cream to hands and feet as he reports this was helping at [facility] Arterial insufficiency of lower extremity: Left lower extremity arterial Dopplers on 10/05 showed significant stenosis in the distal anterior tibial and dorsalis pedis arteries. Continue warfarin and Plavix, Vascular consulted, Elevated troponin upon admission: Troponin was 0.15 and 0.17 on admission. EKG was non-ischemic, Cardiomyopathy: Chronic systolic heart failure without exacerbation. EF 45-50%. Likely euvolemic, bilateral lungs fine crackles, will restart home dose torsemide 20 mg p.o. daily, appreciate cardiology input Atrial fibrillation: Chronic afib. Was on warfarin for anticoagulation and metoprolol for rate control. Per cardiology, holding metoprolol as it could be contributing to his falls, Coumadin was changed to Eliquis during this hospitalization, Anemia: Baseline hemoglobin seems to be 12-14. On admission, was down to 9.6. today is 8.8, related to stable, no signs of bleeding apart from his significant bruising. Borderline macrocytic , but B12 was 474 in 08/2018. Folate was 8.8 on 10/07. Stool hemoccults were negative Frequent falls prior to this admission per patient. Likely multifactorial with cardiology looking into orthostasis/BP changes, age, frailty, and possibly some neuropathy. All because of patient's age use and deconditioning, cont PT/OT TIA (transient ischemic attack): Likely embolic due to history of atrial fibrillation. Continue Plavix and warfarin. Restless leg syndrome, Hyperlipidemia LDL goal <70, Continue current medication Follow-up vascular to see him cont PT/OT, likely discharge back to [facility] once he can ambulate ok , and After left lower ext cellulitis improving Still on nasal cannula oxygen, will remove it if able to keep pulse ox more than 88%, which he was not on oxygen at home Planning to talk to infectious disease switch vancomycin to p.o antibiotics such as doxycycline, and for the discharge plan possible tomorrow Upon discharge today" Subjective upon discharge: Continue doing better, no pain in the left lower extremity, no hot no swelling, No other complaints, Review of system upon discharge, No fever and chills, Denies chest pain palpitationDenied lower extremity swelling Denies nausea vomiting abdominal pain diarrhea constipation Denies dysuria urgency and frequency's Denies facial droop denies slurry speech or local weakness Physical Exam upon discharge Vital signs reviewed mild elevated hypertension, Constitutional: Frail, pleasant, awake alert orientated x4, cooperative in physical exam, generally looking fairly stable every day, Eyes: EOM intact bilaterally; no conjunctival abnormality ENMT: external ear and nose normal, oropharynx normal Neck: trachea midline, no thyromegalym, normal visual inspection Respiratory: Mild decreased respiratory sounds, normal respiratory effort, bob left lower lungs occasional crackles, no wheezing rhonchi, no respiratory distress Cardiovascular: RRR, no murmur, no edema Gastrointestinal: abdomen normal to inspection, not distended Musculoskeletal: no cyanosis or clubbing, extremities motor strength 5/5 Skin: Left lower extremity erythema and hot in palpation area improving and almost resolved, no more swelling Neurologic: moves all extremities and awake Psychiatric: Orientation: alert, Lab data upon discharge: Laboratory Results - last 24 hr 10/14/18 05:43 Creatinine 1.17 Est Cr Clr Drug Dosing 42.3 Est GFR ( Amer) 63.7 Est GFR (Non-Af Amer) 54.9 Most important information upon discharge such as left Lower extremity cellulitis is better, need to continue doxycycline for 10 days more, mild Arterial insufficiency of left lower extremity, Okay to follow-up with PCP, do not need to follow up the Vascular surgeon, vascular surgeon saw patient already, Couadin was discontinued, started eliquis , because of frequent fall and metoprolol was discontinued, this was an out moderate elevated systolic blood pressure to avoid fall Was trying to taper off oxygen however oxygen dropped to 70s in room air and therefore will need to continue nasal cannula oxygen 1-2 LPM, need to reeval of oxygen in 1-2 week after discharge, Total Time Total Time Spent Total Time Spent (In Minutes): 35 Total Time Includes: Examination of the Patient, Discharge Planning, Medication Reconciliation and Communication With Other Providers Discharge Plan Discharge Items Patient Disposition: Transfer Custodial Fac Reason For Visit: NSTEMI,LLE CELLULITIS Discharge Diagnosis: Cellulitis, Mild PAD, CHF, Hyponatremia, Condition: Fair Discharge Goals: Decrease discomfort Activity: Per 'Additional Instructions' section Non-emergency contact: Primary Care Provider and Surgeon Call non-emergency contact if: you have any medication questions Diet: Heart Healthy Add Provider Instructions: you have left Lower extremity cellulitis is better, need to continue doxycycline for 10 days more you have mild Arterial insufficiency of left lower extremity, Okay to follow- up with PCP, to not need to follow up the Vascular surgeon, your couadin was discontinued, started eliquis you need to be on nasal cannula oxygen 1-2 LPM, need to reeval of oxygen need to in 1-2 week with pcp you need to follow up with your primary care physician in 1 week, - take medication as instructed, never overdose or any misuse, or take with alcohol, because misuse of medicine may cause organ damage or , call me , or your primary care physician if have questions of discharge medicaitons. - call your primary care physician, or go to local emergency room if has any fever/chill, chest pain, shortness of breathing, nausea/vomiting/abdominal pain , facial droop/slurry speech/local weakness, or if has any questions. - fall precaution - diet as instructed - you need to follow up with your subspecialist, such ascardiologist Prescriptions: New doxycycline hyclate 100 mg Capsule 100 mg PO BID 10 Days Qty: 20 RF: 0 apixaban [Eliquis] 5 mg Tablet 5 mg PO BID 30 Days Qty: 60 RF: 0 Continue lisinopril 5 mg tablet 5 mg PO QAM RF: 0 melatonin 3 mg tablet 3 mg PO HS RF: 0 potassium chloride 10 mEq capsule, extended release 10 meq PO QAM RF: 0 sennosides [Senna Lax] 8.6 mg tablet 8.6 mg PO BID PRN (Reason: Constipation) RF: 0 acetaminophen [Tylenol] 325 mg tablet 650 mg PO Q4H PRN (Reason: PAIN/ELEVATED TEMP) RF: 0 cholecalciferol (vitamin D3) 2,000 unit capsule 2,000 units PO QAM RF: 0 sertraline [Zoloft] 25 mg tablet 25 mg PO QAM RF: 0 atorvastatin 10 mg tablet 10 mg PO QAM RF: 0 dutasteride [Avodart] 0.5 mg capsule 0.5 mg PO QAM RF: 0 clopidogrel 75 mg tablet 75 mg PO Q2D RF: 0 torsemide 20 mg tablet 20 mg PO QAM PRN (Reason: Edema) RF: 0 magnesium hydroxide [Milk of Magnesia] 400 mg/5 mL Suspension 30 ml PO Q48H PRN (Reason: Constipation) RF: 0 bisacodyl [Dulcolax (bisacodyl)] 10 mg Suppository 10 mg LA Q48H PRN (Reason: Constipation) RF: 0 calcium carbonate [Tums] 200 mg calcium (500 mg) Tablet,Chewable 500 mg PO UD PRN (Reason: Gastric Reflux) RF: 0 sodium phosphates [Fleet Enema] 19-7 gram/118 mL Enema 1 dose LA Q72H PRN (Reason: Constipation) RF: 0 Discontinued tramadol 50 mg tablet 50 mg PO TID RF: 0 warfarin [Coumadin] 4 mg tablet 4 mg PO PM RF: 0 metoprolol tartrate 25 mg tablet 25 mg PO BID RF: 0 Stand-Alone Forms: [facility] Discharge Orders: Discharge Order (Routine); Ordered 10/14/18 Ordered By: Eddie Cloud Admission Data Admit Date/Time: 10/05/18 18:11 Attending Provider: Eddie Cloud Admit Provider: Xavi Valencia Primary Care Provider: Reji Li Other Providers: Cayden Lees ; Xavi Valencia ; Matty Andrade ; Gerardo Gray ; Yash Carrion Service: Medical Other Interventions: Discharge Summary Assessment (RN) Last Done: 10/14/18 13:12
== END 2018-10-14 15:30 | DRG 300 ==
LOC: ED 14:21 → 2S 18:11 → SUATTDRO 18:11 → 2S 19:20 → 4E 10-12 14:07

== ENCOUNTER 2018-10-27 18:36 | Inpatient (IN) ==
[2018-10-27] MEDS ORDERED: PANTOprazole 80 MG in DEXTROSE 5% 100 ML IV ONE (18:49)
[2018-10-27] MEDS ORDERED: PANTOPRAZOLE BOLUS/DRIP 1 EA IV STA (18:49)
[2018-10-27] MEDS ORDERED: SODIUM CHLORIDE 0.9% 500 ML IV SCH (19:00)
[2018-10-27] MEDS ORDERED: PANTOprazole 40 MG in DEXTROSE 5% 100 ML IV SCH (19:00)
[2018-10-27 19:09] LABS: Basophils # (auto) 0.16 K/uL (0-0.2); Basophils % (auto) 2.3 %; Eosinophils # (auto) 0.18 K/uL (0-0.5); Eosinophils % (auto) 2.5 %; Hematocrit (blood only) 24.6 % (42-52); Hemoglobin 7.6 g/dL (14.0-18.0); Immature Granulocytes # (auto) 0.04 K/uL (0.00-0.02); Immature Granulocytes % (auto) 0.6 %; Lymphocytes # (auto) 1.35 K/uL (1.2-3.4); Lymphocytes % (auto) 19.1 %; Mean Corpuscular Hgb Conc 30.9 g/dL (32-36); Mean Platelet Volume 7.6 fL (7.4-10.4); Monocytes # (auto) 0.52 K/uL (0.11-0.59); Monocytes % (auto) 7.4 %; Neutrophils # (auto) 4.81 K/uL (1.4-6.5); Neutrophils % (auto) 68.1 %; Platelet Count 170 K/uL (130-400); RDW Coefficient of Variation 15.9 % (11.5-14.5); RDW Standard Deviation 57.3 fL (36.4-46.3); Red Blood Count 2.51 M/uL (4.7-6.1); White Blood Count 7.06 K/uL (4.8-10.8)
[2018-10-27 19:23] LABS: INR 1.3 (0.9-1.1); Partial Thromboplastin Ratio 1.1; Partial Thromboplastin Time 28.4 Seconds (21.0-31.0); Prothrombin Time 12.9 Seconds (9.0-12.0)
[2018-10-27 19:32] LABS: Albumin Level 1.9 gm/dl (3.4-5.0); BUN Creatinine Ratio 51.7 (10-20); Creatinine Clr Calc Pharmacy 38.1 ml/min; Est GFR (African American) 57.7; Est GFR (Non-African American) 49.8; Potassium 4.9 mmol/L (3.5-5.1)
[2018-10-27 19:35] LABS: Albumin Globulin Ratio 0.5 (0.9-2); Bilirubin,Total 0.4 mg/dl (0.2-1); Globulin 3.6 gm/dl (2.5-4.0); Total Protein 5.5 gm/dl (6.4-8.2)
[2018-10-27 19:42] LABS: Hypochromasia Present
--- NOTE | 2018-10-27 20:34 | Emergency Department Note ---
Entered by Sanjay Saucedo acting as a scribe for History of Present Illness General Chief complaint: GI Assessment Time Seen by Provider: 10/27/18 18:39 Source: patient History of Present Illness Provider complaint: Vomiting Onset (ago): hour(s) greater than 10 Location: abdomen Pain Consistency: + other (Episodic) Relieved By: + none Exacerbated By: + eating Associated symptoms: + nausea/vomiting (No nausea); no other (Abdomen pain ) The patient is an 88 year old male w/ PMHx Afib (on Eliquis), TIA (on Plavix), PAD, RLS, and HTN who presents to the ED w/ CC of episodic vomiting beginning this morning. Both episodes that he had today occurred after he had eaten, once after breakfast and once after dinner. The living facility where he resides also mentioned he had coffee ground emesis and questionable dark stool since this morning. He denies any abdominal pain, recent falls, or history of rectal bleeding. He does however have a history of a partial colon resection that he had done because of his diverticulitis. He was discharged from the hospital 13 days ago. He was hospitalized for cellulitis. Home Medications Home Medications Medication Instructions Recorded Confirmed Type acetaminophen 325 mg tablet 650 mg PO Q4H PRN tab 08/08/18 10/05/18 History atorvastatin 10 mg tablet 10 mg PO QAM 08/08/18 10/05/18 History cholecalciferol (vitamin D3) 2,000 2,000 units PO QAM 08/08/18 10/05/18 History unit capsule clopidogrel 75 mg tablet 75 mg PO Q2D 08/08/18 10/05/18 History dutasteride 0.5 mg capsule 0.5 mg PO QAM 08/08/18 10/05/18 History lisinopril 5 mg tablet 5 mg PO QAM 08/08/18 10/05/18 History melatonin 3 mg tablet 3 mg PO HS 08/08/18 10/05/18 History potassium chloride ER 10 mEq 10 meq PO QAM 08/08/18 10/05/18 History capsule,extended release sennosides 8.6 mg tablet 8.6 mg PO BID PRN 08/08/18 10/05/18 History sertraline 25 mg tablet 25 mg PO QAM 08/08/18 10/05/18 History bisacodyl [Dulcolax (bisacodyl)] 10 mg MS Q48H PRN 10/05/18 10/05/18 History calcium carbonate [Tums] 500 mg PO UD PRN 10/05/18 10/05/18 History magnesium hydroxide [Milk of 30 ml PO Q48H PRN 10/05/18 10/05/18 History Magnesia] sodium phosphates [Fleet Enema] 1 dose MS Q72H PRN 10/05/18 10/05/18 History torsemide 20 mg PO QAM PRN 10/05/18 10/05/18 History apixaban [Eliquis] 5 mg PO BID 30 Days #60 tab 10/14/18 Rx Allergies Allergy/AdvReac Type Severity Reaction Status Date / Time celecoxib Allergy Unknown Verified 10/05/18 16:20 Bactrim AdvReac Intermediate DYSPEPSIA Verified 03/05/18 14:22 cephalexin AdvReac Intermediate DYSPEPSIA Verified 10/05/18 16:20 esomeprazole AdvReac Intermediate GI SYMPTOMS Verified 10/05/18 16:20 naproxen AdvReac Intermediate DYSPEPSIA Verified 10/05/18 16:20 NSAIDS (Non-Steroidal AdvReac Intermediate esaphogeal Verified 10/05/18 16:20 Anti-Inflamma lesions sulfamethoxazole AdvReac Intermediate DYSPEPSIA Verified 10/05/18 16:20 trimethoprim AdvReac Intermediate DYSPEPSIA Verified 10/05/18 16:20 Cephalosporins AdvReac Mild NAUSEA Verified 10/05/18 16:20 Past Med/Surg History Medical History Atrial fibrillation (Acute) Pneumothorax (Acute) TIA (transient ischemic attack) (Acute) Acid reflux (Chronic) Surgical History H/O right inguinal hernia repair (Acute) History of colon resection (Acute) History of hemiarthroplasty of shoulder (Acute) History of total right hip replacement (Acute) Hx of tonsillectomy (Acute) Family History Other Family history non-contributory Social History marital status: / Current Living Situation: Personal Care Facility current occupational status: retired Feels Safe at Home: Yes Smoking Status: Never smoker Hx Alcohol Use: No Hx Substance Use: No Beliefs That Will Affect Care: None Preferred Language: Portuguese Visual Impairment: Limited Hearing Ability: Use of Hearing Aid Physical Exam Vital Signs Vital Signs - 24 hr 10/27/18 18:43 10/27/18 18:50 10/27/18 18:56 Temperature 36.6 C Temperature Source Oral Sepsis Recent Fever Within 48 Hours No Sepsis Action Taken by Nursing No Action Required Pulse Rate 82 77 Respiratory Rate 19 20 Respiratory Effort / Characteristics Non-Labored Respiratory Depth Normal Blood Pressure 97/50 L 97/50 L Blood Pressure Mean 65 65 Blood Pressure Position Lying Pulse Oximetry 93 Oxygen Delivery Method Nasal Cannula Nasal Cannula Oxygen Flow Rate 3 3 10/27/18 19:21 10/27/18 19:30 10/27/18 20:00 Temperature Temperature Source Sepsis Recent Fever Within 48 Hours Sepsis Action Taken by Nursing Pulse Rate 83 87 82 Respiratory Rate 19 22 18 Respiratory Effort / Characteristics Respiratory Depth Blood Pressure 111/47 L 109/51 L 114/50 L Blood Pressure Mean 68 70 71 Blood Pressure Position Pulse Oximetry 92 Oxygen Delivery Method Oxygen Flow Rate 10/27/18 20:30 Temperature Temperature Source Sepsis Recent Fever Within 48 Hours Sepsis Action Taken by Nursing Pulse Rate 85 Respiratory Rate 22 Respiratory Effort / Characteristics Respiratory Depth Blood Pressure 115/56 L Blood Pressure Mean 75 Blood Pressure Position Pulse Oximetry 94 Oxygen Delivery Method Oxygen Flow Rate GENERAL: Well appearing, well nourished, NAD, non-toxic. Wearing glasses with hearing aids in place. EYE EXAM: Normal conjunctiva. Subtle anisocoria right greater than left, pupils round and reactive. EOM's grossly intact w/o pains. OROPHARYNX: No exudate, posterior pharynx is clear, no tonsillar/uvular deviation or swelling. NECK: Supple, no nuchal rigidity, no adenopathy, non-tender. No signs of meningismus. LUNGS: Clear to auscultation bilaterally. Normal chest wall mechanics. HEART: NSR, no MRG. ABDOMEN: Abdomen soft, non-tender, normo-active bowel sounds, no masses, no rebound or guarding. RECTAL: A lot of dark stool around the anus, no bright red blood, no hemorrhoids or masses, heme positive. BACK: No CVA TTP. SKIN: No rashes and no bruising. UPPER EXTREMITIES: Upper extremities are grossly normal. LOWER EXTREMITIES: No pitting edema. No calf pain. NEURO EXAM: Cranial nerves II-XII grossly intact, normal speech, 5/5 strength in bilateral upper and lower extremities, no sensory deficits, moves all 4 extremities on command w/o issue. Course 1839: Past medical records reviewed. The patient was evaluated in room C12B, and a complete history and physical examination were performed. 1999: I spoke to Dr. Peralta - [facility] Hospitalist about the patients case and she is going to accept him for further evaluation. 2007: I updated the patient on treatment plan and he consented for a blood transfusion. Administered Medications Pantoprazole Sodium 40 mg/ (Dextrose) 100 mls @ 20 mls/hr IV Q5H YOSHI Stop: 11/26/18 18:59 Last Admin: 10/27/18 19:43 Dose: 20 mls/hr Discontinued Medications Sodium Chloride (Nss) 500 mls @ 999 mls/hr IV .Q31M YOSHI Stop: 10/27/18 19:30 Last Infusion: 10/27/18 19:54 Dose: 0 mls/hr Admin: 10/27/18 19:00 Dose: 999 mls/hr Pantoprazole Sodium (Protonix Bolus/Drip) 0 mls @ 1 mls/hr IV ONE STA Stop: 10/27/18 18:50 Last Admin: 10/27/18 19:46 Dose: 1 mls/hr Pantoprazole Sodium 80 mg/ (Dextrose) 120 mls @ 400 mls/hr IV NOW ONE Stop: 10/27/18 19:06 Last Infusion: 10/27/18 19:54 Dose: 0 mls/hr Admin: 10/27/18 19:13 Dose: 400 mls/hr 2 units pRBCs Medical Decision Making Medical Records Attestation: I reviewed the patient's medical records. Home Medications Current Medication List: was personally reviewed by me Laboratory Data Attestation: I reviewed the patient's lab results. Result diagrams: 10/27/18 18:55 10/27/18 18:55 Lab Results 10/27/18 10/27/18 10/27/18 Range/Units 18:50 18:55 18:55 WBC 7.06 (4.8-10.8) K/uL RBC 2.51 L (4.7-6.1) M/uL Hgb 7.6 L (14.0-18.0) g/dL Hct 24.6 L (42-52) % MCV 98.0 (80-100) fL MCH 30.3 (25-34) pg MCHC 30.9 L (32-36) g/dL RDW Std Deviation 57.3 H (36.4-46.3) fL RDW Coeff of Michelle 15.9 H (11.5-14.5) % Plt Count 170 (130-400) K/uL MPV 7.6 (7.4-10.4) fL Immature Gran % (Auto) 0.6 % Neut % (Auto) 68.1 % Lymph % (Auto) 19.1 % [place] % (Auto) 7.4 % Eos % (Auto) 2.5 % Baso % (Auto) 2.3 % Immature Gran # (Auto) 0.04 H (0.00-0.02) K/uL Neut # (Auto) 4.81 (1.4-6.5) K/uL Lymph # (Auto) 1.35 (1.2-3.4) K/uL [place] # (Auto) 0.52 (0.11-0.59) K/uL Eos # (Auto) 0.18 (0-0.5) K/uL Baso # (Auto) 0.16 (0-0.2) K/uL Hypochromasia Present PT 12.9 H (9.0-12.0) Seconds INR 1.3 H (0.9-1.1) APTT 28.4 (21.0-31.0) Seconds PTT Ratio 1.1 Sodium (136-145) mmol/L Potassium (3.5-5.1) mmol/L Chloride (98-107) mmol/L Carbon Dioxide (21-32) mmol/L Anion Gap (3-11) BUN (7-18) mg/dl Creatinine (0.6-1.4) mg/dl Est Cr Clr Drug Dosing ml/min Est GFR ( Amer) Est GFR (Non-Af Amer) BUN/Creatinine Ratio (10-20) Glucose (70-99) mg/dl Calcium (8.5-10.1) mg/dl Total Bilirubin (0.2-1) mg/dl AST (15-37) U/L ALT (12-78) U/L Alkaline Phosphatase (45-117) U/L Total Protein (6.4-8.2) gm/dl Albumin (3.4-5.0) gm/dl Globulin (2.5-4.0) gm/dl Albumin/Globulin Ratio (0.9-2) POC Stool Occult Blood Positive H (Negative) Crossmatch 10/27/18 10/27/18 Range/Units 18:55 19:38 WBC (4.8-10.8) K/uL RBC (4.7-6.1) M/uL Hgb (14.0-18.0) g/dL Hct (42-52) % MCV (80-100) fL MCH (25-34) pg MCHC (32-36) g/dL RDW Std Deviation (36.4-46.3) fL RDW Coeff of Michelle (11.5-14.5) % Plt Count (130-400) K/uL MPV (7.4-10.4) fL Immature Gran % (Auto) % Neut % (Auto) % Lymph % (Auto) % [place] % (Auto) % Eos % (Auto) % Baso % (Auto) % Immature Gran # (Auto) (0.00-0.02) K/uL Neut # (Auto) (1.4-6.5) K/uL Lymph # (Auto) (1.2-3.4) K/uL [place] # (Auto) (0.11-0.59) K/uL Eos # (Auto) (0-0.5) K/uL Baso # (Auto) (0-0.2) K/uL Hypochromasia PT (9.0-12.0) Seconds INR (0.9-1.1) APTT (21.0-31.0) Seconds PTT Ratio Sodium 136 (136-145) mmol/L Potassium 4.9 (3.5-5.1) mmol/L Chloride 103 (98-107) mmol/L Carbon Dioxide 23 (21-32) mmol/L Anion Gap 10.0 (3-11) BUN 66 H (7-18) mg/dl Creatinine 1.27 (0.6-1.4) mg/dl Est Cr Clr Drug Dosing 38.1 ml/min Est GFR ( Amer) 57.7 Est GFR (Non-Af Amer) 49.8 BUN/Creatinine Ratio 51.7 H (10-20) Glucose 204 H (70-99) mg/dl Calcium 8.0 L (8.5-10.1) mg/dl Total Bilirubin 0.4 (0.2-1) mg/dl AST 49 H (15-37) U/L ALT 49 (12-78) U/L Alkaline Phosphatase 94 (45-117) U/L Total Protein 5.5 L (6.4-8.2) gm/dl Albumin 1.9 L (3.4-5.0) gm/dl Globulin 3.6 (2.5-4.0) gm/dl Albumin/Globulin Ratio 0.5 L (0.9-2) POC Stool Occult Blood (Negative) Crossmatch See Detail ECG Data Attestation: I personally reviewed and interpreted this ECG as follows: Indication: vomiting Rate (beats per minute): 76 Rhythm: atrial fibrillation Findings: + Q waves (Inferior, anterior) and + left axis deviation Comparison ECG Date: from (September 2018) Change: no significant change Blood Pressure Blood Pressure Findings: Low blood pressure Blood Pressure Disposition: further management by hospitalist MDM Narrative The patient is an 88 year old male w/ PMHx Afib (on Eliquis), TIA (on Plavix), PAD, RLS, and HTN who presents to the ED w/ CC of episodic vomiting beginning this morning. Differential: Diverticulitis, AVM, Coagulopathy, Colitis, Malignancy, Upper GI bleed, Fissure, Hemorrhoids, amongst other pathologies entertained. Patient was seen and evaluated the bedside. The patient apparently had been presenting with concern for coffee-ground emesis and dark tarry stools. Patient is heme positive on exam. The patient was initially borderline hypotensive. IV fluids were initiated along with blood work type and screen as well as Protonix bolus and drip. Patient's blood work showed a hemoglobin of 7.6. The patient was consented for 2 units PRBCs which were ordered. I did speak with the on-call hospitalist who agreed to further evaluate treat the patient. Patient's blood pressure did improve with fluids. Patient was admitted to the medicine service. Impression & Plan GI bleed Critical Care Time I have personally spent greater than 75 minutes of critical care time in the direct management of this patient. This includes bedside care, interpretation of diagnostic studies, and testing, discussion with consultants, patient, and family members, and other required patient management activities. This 75 minutes is in excess of all separately billable procedures. Critical Care Time: Yes Total Critical Care Time: 75 Discharge Plan Visit Data Chief Complaint: GI Assessment ED Provider: Robert Shields Discharge Problem: GI bleed Patient Disposition: Being Evaluated by Hospitalist Forms Stand Alone Forms: [facility] Prescriptions Prescriptions: No Action lisinopril 5 mg tablet 5 mg PO QAM RF: 0 melatonin 3 mg tablet 3 mg PO HS RF: 0 potassium chloride 10 mEq capsule, extended release 10 meq PO QAM RF: 0 sennosides [Senna Lax] 8.6 mg tablet 8.6 mg PO BID PRN (Reason: Constipation) RF: 0 acetaminophen [Tylenol] 325 mg tablet 650 mg PO Q4H PRN (Reason: PAIN/ELEVATED TEMP) RF: 0 cholecalciferol (vitamin D3) 2,000 unit capsule 2,000 units PO QAM RF: 0 sertraline [Zoloft] 25 mg tablet 25 mg PO QAM RF: 0 atorvastatin 10 mg tablet 10 mg PO QAM RF: 0 dutasteride [Avodart] 0.5 mg capsule 0.5 mg PO QAM RF: 0 clopidogrel 75 mg tablet 75 mg PO Q2D RF: 0 torsemide 20 mg tablet 20 mg PO QAM PRN (Reason: Edema) RF: 0 magnesium hydroxide [Milk of Magnesia] 400 mg/5 mL Suspension 30 ml PO Q48H PRN (Reason: Constipation) RF: 0 bisacodyl [Dulcolax (bisacodyl)] 10 mg Suppository 10 mg MS Q48H PRN (Reason: Constipation) RF: 0 calcium carbonate [Tums] 200 mg calcium (500 mg) Tablet,Chewable 500 mg PO UD PRN (Reason: Gastric Reflux) RF: 0 sodium phosphates [Fleet Enema] 19-7 gram/118 mL Enema 1 dose MS Q72H PRN (Reason: Constipation) RF: 0 apixaban [Eliquis] 5 mg Tablet 5 mg PO BID 30 Days Qty: 60 RF: 0 Referrals Referrals: Reji Li [Primary Care Provider] - The scribe's documentation has been prepared under my direction and personally reviewed by me in its entirety. I confirm that the note above accurately reflects all work, treatment, procedures, and medical decision making performed by me.
[2018-10-27] MEDS ORDERED: ONDANSETRON INJ 2 MG/ML 2 ML VIAL IV PRN (23:23)
[2018-10-28] MEDS: PANTOprazole 40 MG in SYRINGE 0 ML IV SCH ×3 (00:17→20:04)
[2018-10-28] MEDS: AVODART~ORDER AWAITING ACTION SCH ×3 (01:04→17:05)
--- NOTE | 2018-10-28 02:42 | History & Physical Report ---
Date of Service October 27, 2018 Assessment & Plan (1) GI bleed: Possible coffee ground emesis, dark stools hemoccult positive. Normochromic/normocytic anemia on presentation. Patient with slightly low blood pressure initially which improved with IVF and PRBCs. -Admit to PCU -NPO -Hold Plavix and Eliquis -Maintain 2 large PIVs -Trend CBC q 8 hours - transfuse for active bleed, symptomatic anemia or Hg < 7 -Protonix 40mg IV BID -GI consultation - appreciate assistance with this case (2) Atrial fibrillation: Rate controlled. Patient anticoagulated on Eliquis. Was on Coumadin until last month. -Hold Coumadin in setting of suspected bleed (3) Anemia: Patient with normochromic/normocytic anemia - appears to be decreasing H/ H over the last year. I don't see prior iron studies - will not send now as patient has been transfused. L05=972 and Folate=8.8 during prior admissions -S/p 2u PRBCs -Monitor CBC q 8 hours (4) TIA (transient ischemic attack): Remote history of TIA -Hold Plavix (5) Reflux: Protonix BID as above (6) Hyperlipidemia LDL goal <70: Continue Atorvastatin (7) Hypertension: Hold Lisinopril in settin g of GIB, borderline low blood pressure on arrival F/E/N - transfused 2U PRBCs, monitor electrolytes, NPO. Albumin=1.9 - will check UA for proteinuria. Pre-albumin. Consider Nutrition consult Ppx - Protonix Code - DNR Dispo - PCU At the request of the patient I notified his son of his hospital admission. History of Present Illness Chief Complaint: ?coffee ground emesis Primary Care Provider: [facility] Mr. Jett is a pleasant 88yo male with history of atrial fibrillation on Eliquis anticoagulation, TIA on Plavix, PAD, HTN. He was recently admitted for treatment of cellulitis. Patient presents today with nausea and vomiting - approximately 6 episodes throughout the day. No bright red reported but there was some concern for coffee ground material. Last episode of emesis at 17:00. Patient also with dark stools. He reports that he has been needing oxygen at [facility] over the last week which is new. Patient denies abdominal pain. Denies hematemesis or hematochezia. Is unsure if his vomitus was coffee ground or if his stools have been black. Patient does not smoke, drink or take NSAIDS. Upon arrival to the ER he was found to be afebrile, BP slightly low at 97/50. Labs revealed Hg=7.6, Hct=24.6. FOBT+ ER Course: Protonix gtt, 2U PRBCs Allergies Allergy/AdvReac Type Severity Reaction Status Date / Time celecoxib Allergy Unknown Verified 10/05/18 16:20 Bactrim AdvReac Intermediate DYSPEPSIA Verified 03/05/18 14:22 cephalexin AdvReac Intermediate DYSPEPSIA Verified 10/05/18 16:20 esomeprazole AdvReac Intermediate GI SYMPTOMS Verified 10/05/18 16:20 naproxen AdvReac Intermediate DYSPEPSIA Verified 10/05/18 16:20 NSAIDS (Non-Steroidal AdvReac Intermediate esaphogeal Verified 10/05/18 16:20 Anti-Inflamma lesions sulfamethoxazole AdvReac Intermediate DYSPEPSIA Verified 10/05/18 16:20 trimethoprim AdvReac Intermediate DYSPEPSIA Verified 10/05/18 16:20 Cephalosporins AdvReac Mild NAUSEA Verified 10/05/18 16:20 Home Medications Home Medications Medication Instructions Recorded Confirmed Type acetaminophen 325 mg tablet 650 mg PO Q4H PRN tab 08/08/18 10/27/18 History atorvastatin 10 mg tablet 10 mg PO QAM 08/08/18 10/27/18 History cholecalciferol (vitamin D3) 2,000 2,000 units PO QAM 08/08/18 10/27/18 History unit capsule clopidogrel 75 mg tablet 75 mg PO Q2D 08/08/18 10/27/18 History dutasteride 0.5 mg capsule 0.5 mg PO QAM 08/08/18 10/27/18 History lisinopril 5 mg tablet 5 mg PO QAM 08/08/18 10/27/18 History melatonin 3 mg tablet 3 mg PO HS 08/08/18 10/27/18 History potassium chloride ER 10 mEq 10 meq PO QAM 08/08/18 10/27/18 History capsule,extended release sennosides 8.6 mg tablet 8.6 mg PO Q12H PRN 08/08/18 10/27/18 History bisacodyl [Dulcolax (bisacodyl)] 10 mg GA Q48H PRN 10/05/18 10/27/18 History calcium carbonate [Tums] 500 mg PO Q6H PRN 10/05/18 10/27/18 History magnesium hydroxide [Milk of 30 ml PO Q48H PRN 10/05/18 10/27/18 History Magnesia] sodium phosphates [Fleet Enema] 1 ea GA Q72H PRN 10/05/18 10/27/18 History torsemide 20 mg PO QAM PRN 10/05/18 10/27/18 History apixaban [Eliquis] 5 mg PO BID 30 Days #60 tab 10/14/18 10/27/18 Rx carboxymethylcellulose sodium 2 drp OPB QID 10/27/18 10/27/18 History [Lubricating Plus] pantoprazole [Protonix] 40 mg PO QAM 10/27/18 10/27/18 History sertraline 50 mg PO QAM 10/27/18 10/27/18 History sodium chloride [Saline Nasal] 2 spray INTRANASAL QID 10/27/18 10/27/18 History white petrolatum [Vaseline] 1 applic TOPICAL HS 10/27/18 10/27/18 History Past Med/Surg History Medical History Diverticulitis HTN (hypertension), benign RLS (restless legs syndrome) Atrial fibrillation (Acute) Pneumothorax (Acute) TIA (transient ischemic attack) (Acute) Acid reflux (Chronic) Surgical History H/O right inguinal hernia repair (Acute) History of colon resection (Acute) History of hemiarthroplasty of shoulder (Acute) History of total right hip replacement (Acute) Hx of tonsillectomy (Acute) Family History Other Family history non-contributory Social History marital status: / Current Living Situation: Skilled Nursing current occupational status: retired Other Information That Helps Us Care for You: No Feels Safe at Home: Yes Safety Concerns: Feels Safe At This Time Smoking Status: Never smoker Hx Alcohol Use: No Hx Substance Use: No Beliefs That Will Affect Care: None Preferred Language: Slovenian Communication Ability: Effective Station Gateman Required: No Review of Systems All systems reviewed & are unremarkable except as noted in HPI & below Patient denies CP, palpitations, SOB or dizziness Physical Exam 2 Vital Signs (Past 24 Hours): Last Vital Signs Temp 36.7 C 10/28/18 02:15 Pulse 82 10/28/18 02:15 Resp 18 10/28/18 02:15 BP 120/64 10/28/18 02:15 Pulse Ox 95 10/28/18 02:15 Physical Exam: General: patient resting comfortably, NAD, non-toxic in appearance, AA&O x 4 Skin: warm, dry, intact, no rashes or lesions HEENT: NC/AT, PERRL, EOMI, anicteric sclera, conjunctiva without injection, external ear normal to inspection and nontender, nares patent, moist mucus membranes, poor dentition, no oropharyngeal lesions, neck supple, trachea midline, no LAD, no thyromegaly, no JVD Heart: +S1/S2, irregularly irregular, no m/r/g Lungs: equal air entry bilaterally, no rales/rhonchi/wheezes Abd: +BS, soft, NT/ND, no masses/organomegaly/ascites Ext: warm, 2+ pulses in UE/LE bilaterally, no clubbing/cyanosis or edema Neuro: nonfocal, patient AA&O x 4, speech intact, no facial droop, moving all extremities on command with equal strength 5/5 Results & Data Laboratory Results Lab Results 10/27/18 10/27/18 10/27/18 Range/Units 18:50 18:55 18:55 WBC 7.06 (4.8-10.8) K/uL RBC 2.51 L (4.7-6.1) M/uL Hgb 7.6 L (14.0-18.0) g/dL Hct 24.6 L (42-52) % MCV 98.0 (80-100) fL MCH 30.3 (25-34) pg MCHC 30.9 L (32-36) g/dL RDW Std Deviation 57.3 H (36.4-46.3) fL RDW Coeff of Michelle 15.9 H (11.5-14.5) % Plt Count 170 (130-400) K/uL MPV 7.6 (7.4-10.4) fL Immature Gran % (Auto) 0.6 % Neut % (Auto) 68.1 % Lymph % (Auto) 19.1 % Clark % (Auto) 7.4 % Eos % (Auto) 2.5 % Baso % (Auto) 2.3 % Immature Gran # (Auto) 0.04 H (0.00-0.02) K/uL Neut # (Auto) 4.81 (1.4-6.5) K/uL Lymph # (Auto) 1.35 (1.2-3.4) K/uL Clark # (Auto) 0.52 (0.11-0.59) K/uL Eos # (Auto) 0.18 (0-0.5) K/uL Baso # (Auto) 0.16 (0-0.2) K/uL Hypochromasia Present PT 12.9 H (9.0-12.0) Seconds INR 1.3 H (0.9-1.1) APTT 28.4 (21.0-31.0) Seconds PTT Ratio 1.1 Sodium (136-145) mmol/L Potassium (3.5-5.1) mmol/L Chloride (98-107) mmol/L Carbon Dioxide (21-32) mmol/L Anion Gap (3-11) BUN (7-18) mg/dl Creatinine (0.6-1.4) mg/dl Est Cr Clr Drug Dosing ml/min Est GFR ( Amer) Est GFR (Non-Af Amer) BUN/Creatinine Ratio (10-20) Glucose (70-99) mg/dl Calcium (8.5-10.1) mg/dl Total Bilirubin (0.2-1) mg/dl AST (15-37) U/L ALT (12-78) U/L Alkaline Phosphatase (45-117) U/L Total Protein (6.4-8.2) gm/dl Albumin (3.4-5.0) gm/dl Globulin (2.5-4.0) gm/dl Albumin/Globulin Ratio (0.9-2) POC Stool Occult Blood Positive H (Negative) Blood Type Blood Type Recheck Antibody Screen Crossmatch 10/27/18 10/27/18 10/27/18 Range/Units 18:55 19:38 20:31 WBC (4.8-10.8) K/uL RBC (4.7-6.1) M/uL Hgb (14.0-18.0) g/dL Hct (42-52) % MCV (80-100) fL MCH (25-34) pg MCHC (32-36) g/dL RDW Std Deviation (36.4-46.3) fL RDW Coeff of Michelle (11.5-14.5) % Plt Count (130-400) K/uL MPV (7.4-10.4) fL Immature Gran % (Auto) % Neut % (Auto) % Lymph % (Auto) % Clark % (Auto) % Eos % (Auto) % Baso % (Auto) % Immature Gran # (Auto) (0.00-0.02) K/uL Neut # (Auto) (1.4-6.5) K/uL Lymph # (Auto) (1.2-3.4) K/uL Clark # (Auto) (0.11-0.59) K/uL Eos # (Auto) (0-0.5) K/uL Baso # (Auto) (0-0.2) K/uL Hypochromasia PT (9.0-12.0) Seconds INR (0.9-1.1) APTT (21.0-31.0) Seconds PTT Ratio Sodium 136 (136-145) mmol/L Potassium 4.9 (3.5-5.1) mmol/L Chloride 103 (98-107) mmol/L Carbon Dioxide 23 (21-32) mmol/L Anion Gap 10.0 (3-11) BUN 66 H (7-18) mg/dl Creatinine 1.27 (0.6-1.4) mg/dl Est Cr Clr Drug Dosing 38.1 ml/min Est GFR ( Amer) 57.7 Est GFR (Non-Af Amer) 49.8 BUN/Creatinine Ratio 51.7 H (10-20) Glucose 204 H (70-99) mg/dl Calcium 8.0 L (8.5-10.1) mg/dl Total Bilirubin 0.4 (0.2-1) mg/dl AST 49 H (15-37) U/L ALT 49 (12-78) U/L Alkaline Phosphatase 94 (45-117) U/L Total Protein 5.5 L (6.4-8.2) gm/dl Albumin 1.9 L (3.4-5.0) gm/dl Globulin 3.6 (2.5-4.0) gm/dl Albumin/Globulin Ratio 0.5 L (0.9-2) POC Stool Occult Blood (Negative) Blood Type O Positive Blood Type Recheck O Positive Antibody Screen NEGATIVE Crossmatch See Detail ECG Additional Comments: The study shows AF at 76bpm, left axis deviation, QRS=90, YCh=804, no acute ischemic changes Code Status & VTE Plan Code Status DNR per discussion with patient VTE Prophylaxis Plan VTE Prophylaxis will be ordered: No Critical Care Time Critical Care Time: No _ (1) GI bleed GI bleed type/associated pathology: gastrointestinal hemorrhage with hematemesis Gastritis type: Qualified Code(s): K92.0 - Hematemesis (2) Atrial fibrillation Atrial fibrillation type: permanent Qualified Code(s): I48.2 - Chronic atrial fibrillation (3) Anemia Anemia type: unspecified type Bone marrow failure anemia type: Chronic kidney disease stage: Folate deficiency anemia type: Hemolytic anemia type: Iron deficiency anemia type: Other causes of anemia: Vitamin B12 deficiency anemia type: Qualified Code(s): D64.9 - Anemia, unspecified (4) Hypertension Hypertension type: essential hypertension Qualified Code(s): I10 - Essential (primary) hypertension
[2018-10-28 02:59] LABS: Basophils # (auto) 0.18 K/uL (0-0.2); Basophils % (auto) 1.5 %; Eosinophils % (auto) 1.7 %; Hematocrit (blood only) 30.8 % (42-52); Immature Granulocytes # (auto) 0.04 K/uL (0.00-0.02); Immature Granulocytes % (auto) 0.3 %; Lymphocytes # (auto) 1.59 K/uL (1.2-3.4); Lymphocytes % (auto) 13.7 %; Mean Corpuscular Hgb Conc 32.5 g/dL (32-36); Mean Corpuscular Volume 93.6 fL (80-100); Monocytes # (auto) 0.91 K/uL (0.11-0.59); Monocytes % (auto) 7.8 %; Neutrophils # (auto) 8.72 K/uL (1.4-6.5); Platelet Count 150 K/uL (130-400); RDW Coefficient of Variation 15.8 % (11.5-14.5); RDW Standard Deviation 54.4 fL (36.4-46.3); Red Blood Count 3.29 M/uL (4.7-6.1); White Blood Count 11.64 K/uL (4.8-10.8)
[2018-10-28 03:01] LABS: Appearance Urine Clear (Clear); Bilirubin Urine Negative (Negative); Color Urine Yellow; Glucose Urine UA Negative (Negative); Ketones Urine Negative (Negative); Leukocyte Esterase Urine Negative (Negative); Nitrite Urine Negative (Negative); Protein Urine Negative (Negative); Specific Gravity Urine 1.016 (1.000-1.030); Urobilinogen Urine Negative (Negative)
[2018-10-28 03:17] LABS: Albumin Level 2.1 gm/dl (3.4-5.0); BUN Creatinine Ratio 48.6 (10-20); Creatinine Clr Calc Pharmacy 44.4 ml/min; Est GFR (African American) 69.4; Est GFR (Non-African American) 59.9; Potassium 4.3 mmol/L (3.5-5.1)
[2018-10-28 03:23] LABS: Bilirubin Direct 0.3 mg/dl (0-0.2); Bilirubin,Total 0.7 mg/dl (0.2-1); Phosphorus 3.5 mg/dl (2.5-4.9); Prealbumin 12.6 mg/dl (20-40); Total Protein 5.9 gm/dl (6.4-8.2)
[2018-10-28] MEDS: ATORVASTATIN 10 MG TAB PO SCH (08:26)
[2018-10-28] MEDS: SERTRALINE HCL 50 MG TABLET PO SCH (08:26)
--- NOTE | 2018-10-28 13:55 | Gastrointestinal Consultation ---
Date of Consultation October 28, 2018 Assessment & Plan (1) GI bleed: This is suspicious for a slow upper GI bleed. At this point patient refuses upper endoscopy. He tells us that if he were to lose more blood or if he had any gross GI bleeding then he might consider undergoing endoscopy. He has been on daily PPI increased to twice daily for a few weeks then back to once daily. GI watch peripherally. If patient has any gross GI bleeding or significant drop in hemoglobin please call us. Present on Admission?: Yes Supervising Physician Co-Signing Physician Notes I have personally seen and examined the patient with SHANAE Negro om . Her note reflects my exam and findings. I agree with her impression and plan. Patient refuses endoscopy at this point. Cont to follow H/H and treat emperically. Jam Everett M.D. History of Present Illness Reason for Consultation: Coffee-ground emesis Requesting Physician: Dr. Lorenzo Attending Physician: Ced Lorenzo History of Present Illness Mr. Jett is an 88-year-old male patient who was brought to the emergency department yesterday for hematemesis. He tells us that he had eaten breakfast then during physical therapy at his residence, I believe [place], he was in physical therapy, felt nauseated and vomited. He does not believe there was any blood in the emesis. On arrival, Hb was 10 and it decreased to 7. He received 2 units of RBC and Hb is now 10. Stool was positive for occult blood. He has not had any gross GI bleeding since arrival. He denies any abdominal pain. He is seen and examined while he is resting in bed. He is awake alert and oriented.. He tells us that he does not want any procedures. Allergies Allergy/AdvReac Type Severity Reaction Status Date / Time celecoxib Allergy Unknown Verified 10/05/18 16:20 Bactrim AdvReac Intermediate DYSPEPSIA Verified 03/05/18 14:22 cephalexin AdvReac Intermediate DYSPEPSIA Verified 10/05/18 16:20 esomeprazole AdvReac Intermediate GI SYMPTOMS Verified 10/05/18 16:20 naproxen AdvReac Intermediate DYSPEPSIA Verified 10/05/18 16:20 NSAIDS (Non-Steroidal AdvReac Intermediate esaphogeal Verified 12/26/18 16:20 Anti-Inflamma lesions sulfamethoxazole AdvReac Intermediate DYSPEPSIA Verified 10/05/18 16:20 trimethoprim AdvReac Intermediate DYSPEPSIA Verified 10/05/18 16:20 Cephalosporins AdvReac Mild NAUSEA Verified 10/05/18 16:20 Home Medications Home Medications Medication Instructions Recorded Confirmed Type acetaminophen 325 mg tablet 650 mg PO Q4H PRN tab 08/08/18 10/27/18 History atorvastatin 10 mg tablet 10 mg PO QAM 08/08/18 10/27/18 History cholecalciferol (vitamin D3) 2,000 2,000 units PO QAM 08/08/18 10/27/18 History unit capsule clopidogrel 75 mg tablet 75 mg PO Q2D 08/08/18 10/27/18 History dutasteride 0.5 mg capsule 0.5 mg PO QAM 08/08/18 10/27/18 History lisinopril 5 mg tablet 5 mg PO QAM 08/08/18 10/27/18 History melatonin 3 mg tablet 3 mg PO HS 08/08/18 10/27/18 History potassium chloride ER 10 mEq 10 meq PO QAM 08/08/18 10/27/18 History capsule,extended release sennosides 8.6 mg tablet 8.6 mg PO Q12H PRN 08/08/18 10/27/18 History bisacodyl [Dulcolax (bisacodyl)] 10 mg DC Q48H PRN 10/05/18 10/27/18 History calcium carbonate [Tums] 500 mg PO Q6H PRN 10/05/18 10/27/18 History magnesium hydroxide [Milk of 30 ml PO Q48H PRN 10/05/18 10/27/18 History Magnesia] sodium phosphates [Fleet Enema] 1 ea DC Q72H PRN 10/05/18 10/27/18 History torsemide 20 mg PO QAM PRN 10/05/18 10/27/18 History carboxymethylcellulose sodium 2 drp OPB QID 10/27/18 10/27/18 History [Lubricating Plus] sertraline 50 mg PO QAM 10/27/18 10/27/18 History sodium chloride [Saline Nasal] 2 spray INTRANASAL QID 10/27/18 10/27/18 History white petrolatum [Vaseline] 1 applic TOPICAL HS 10/27/18 10/27/18 History pantoprazole [Protonix] 40 mg PO BID #0 tab 10/29/18 10/27/18 Rx Patient History Medical History Atrial fibrillation (Acute) Pneumothorax (Acute) TIA (transient ischemic attack) (Acute) Acid reflux (Chronic) Diverticulitis HTN (hypertension), benign RLS (restless legs syndrome) Surgical History H/O right inguinal hernia repair (Acute) History of colon resection (Acute) History of hemiarthroplasty of shoulder (Acute) History of total right hip replacement (Acute) Hx of tonsillectomy (Acute) Family History Other Family history non-contributory Social History marital status: / Current Living Situation: [facility] current occupational status: retired Feels Safe at Home: Yes Smoking Status: Never smoker Hx Alcohol Use: No Hx Substance Use: No Beliefs That Will Affect Care: None Preferred Language: Serbian Review of Systems Constitutional: no fever, no chills, no body aches and no fatigue Respiratory: no cough and no dyspnea Cardiovascular: no chest pain, no dyspnea on exertion and no palpitations Gastrointestinal: + nausea, + vomiting, + coffee ground emesis (Apparently there was a witnessed coffee-ground emesis yesterday morning in the outpatient setting) and + change in stools (Patient denies any black or bloody bowel movement); no abdominal pain and no heartburn Psychiatric: no behavioral changes, no depression and no panic attacks Physical Exam 2 Vital Signs (Past 24 Hours): Last Vital Signs Temp 36.9 C 10/28/18 12:34 Pulse 69 10/28/18 12:34 Resp 18 10/28/18 12:34 BP 129/64 10/28/18 12:34 Pulse Ox 98 10/28/18 12:34 Physical Exam: Awake alert oriented, no acute distress Constitutional: WD/WN, vitals as above + thin and cooperative; no acute distress Neck: trachea midline, no thyromegaly Respiratory: normal respiratory effort, lungs clear to auscultation Cardiovascular: RRR, no murmur, no edema Gastrointestinal (Abdomen): normal bowel sounds, soft, nontender, no hepatosplenomegaly Skin: no rashes, warm and dry + turgor decreased; no jaundice Neurologic: PERRL, EOMI, accommodation nl, no face palsy, no dysarthria Psychiatric: A+Ox3, euthymic affect Results & Data Laboratory Results Hemoglobin 10 posttransfusion. BUN 53 _ (1) GI bleed GI bleed type/associated pathology: gastrointestinal hemorrhage with hematemesis Gastritis type: Qualified Code(s): K92.0 - Hematemesis
[2018-10-28 14:07] LABS: Basophilic Stippling Occasional
[2018-10-28 16:16] LABS: Hemoglobin 9.6 g/dL (14.0-18.0)
[2018-10-28] MEDS ORDERED: SODIUM CHLORIDE 0.65% NA SOLN 45 ML (OCEAN) ONE (19:58)
--- NOTE | 2018-10-28 23:10 | Hospitalist Progress Note ---
Date of Service October 28, 2018 Assessment & Plan (1) GI bleed: Possible coffee ground emesis, dark stools hemoccult positive. Normochromic/normocytic anemia on presentation. Patient with slightly low blood pressure initially which improved with IVF and PRBCs. -Admit to PCU -NPO -Hold Plavix and Eliquis -Maintain 2 large PIVs -Patient received 2 PRBCs -hemoglobin increased to 10. Will continue to rend CBC -will continue Protonicx 40 mg IV BID. Patient is currently refusing upper endoscopy. -GI consultation - appreciate assistance with this case Explained that this is likely a slow upper GI bleed. (2) Atrial fibrillation: Rate controlled. Patient anticoagulated on Eliquis. Was on Coumadin until last month. -Hold eliquis in setting of suspected bleed (3) Anemia: Patient with normochromic/normocytic anemia - appears to be decreasing H/ H over the last year. I don't see prior iron studies - will not send now as patient has been transfused. K85=939 and Folate=8.8 during prior admissions -S/p 2u PRBCs -Monitor CBC q 8 hours -Improved to 10, trended down to 9.6 (4) TIA (transient ischemic attack): Remote history of TIA -Hold Plavix (5) Reflux: Protonix BID as above (6) Hyperlipidemia LDL goal <70: Continue Atorvastatin (7) Hypertension: Hold Lisinopril in settin g of GIB, borderline low blood pressure on arrival Ppx - Protonix Code - DNR Dispo - PCU Spent 35 minutes in management of patient. Subjective 88 yo male reports feeling better today. He has not had any significant abdominal pain or bowel movements. Patient is aksing when he can be discharged. Constitutional: no sweats Eyes: no blind spots Ear, Nose, Mouth, Throat: no dizziness Respiratory: no pain with cough Cardiovascular: no edema Gastrointestinal: + melena; no cramping Musculoskeletal: no back pain Integumentary: no acne Neurologic: no falls Psychiatric: no anhedonia Physical Exam 2 Vital Signs (Past 24 Hours): Last Vital Signs Temp 36.6 C 10/28/18 19:48 Pulse 71 10/28/18 19:48 Resp 18 10/28/18 19:48 BP 128/66 10/28/18 19:48 Pulse Ox 95 10/28/18 19:48 Physical Exam: General: patient resting comfortably, NAD, non-toxic in appearance, AA&O x 4 Skin: warm, dry, intact, no rashes or lesions HEENT: NC/AT, PERRL, EOMI, anicteric sclera, conjunctiva without injection, external ear normal to inspection and nontender, nares patent, moist mucus membranes, poor dentition, no oropharyngeal lesions, neck supple, trachea midline, no LAD, no thyromegaly, no JVD Heart: +S1/S2, irregularly irregular, no m/r/g Lungs: equal air entry bilaterally, no rales/rhonchi/wheezes Abd: +BS, soft, NT/ND, no masses/organomegaly/ascites Ext: warm, 2+ pulses in UE/LE bilaterally, no clubbing/cyanosis or edema Neuro: nonfocal, patient AA&O x 4, speech intact, no facial droop, moving all extremities on command with equal strength 5/5 _ (1) GI bleed GI bleed type/associated pathology: gastrointestinal hemorrhage with hematemesis Gastritis type: Qualified Code(s): K92.0 - Hematemesis (2) Anemia Anemia type: unspecified type Bone marrow failure anemia type: Chronic kidney disease stage: Folate deficiency anemia type: Hemolytic anemia type: Iron deficiency anemia type: Other causes of anemia: Vitamin B12 deficiency anemia type: Qualified Code(s): D64.9 - Anemia, unspecified (3) Atrial fibrillation Atrial fibrillation type: permanent Qualified Code(s): I48.2 - Chronic atrial fibrillation (4) Hypertension Hypertension type: essential hypertension Qualified Code(s): I10 - Essential (primary) hypertension
[2018-10-29] MEDS: AVODART~ORDER AWAITING ACTION SCH ×2 (00:13→08:14)
[2018-10-29] MEDS: SERTRALINE HCL 50 MG TABLET PO SCH (08:13)
[2018-10-29] MEDS: ATORVASTATIN 10 MG TAB PO SCH (08:13)
[2018-10-29] MEDS: PANTOprazole 40 MG in SYRINGE 0 ML IV SCH (08:57)
[2018-10-29 10:05] LABS: Calcium 8.1 mg/dl (8.5-10.1); Creatinine Clr Calc Pharmacy 41.4 ml/min; Est GFR (African American) 63.7; Est GFR (Non-African American) 54.9; Potassium 3.9 mmol/L (3.5-5.1)
[2018-10-29 10:13] LABS: Hematocrit (blood only) 30.6 % (42-52); Hemoglobin 9.9 g/dL (14.0-18.0); Mean Corpuscular Hgb Conc 32.4 g/dL (32-36); Mean Corpuscular Volume 95.9 fL (80-100); Mean Platelet Volume 8.2 fL (7.4-10.4); Platelet Count 172 K/uL (130-400); RDW Coefficient of Variation 16.2 % (11.5-14.5); RDW Standard Deviation 56.9 fL (36.4-46.3); Red Blood Count 3.19 M/uL (4.7-6.1); White Blood Count 8.77 K/uL (4.8-10.8)
--- NOTE | 2018-10-30 12:51 | Discharge Summary ---
Date of Service October 29, 2018 Admission HPI Per Admitting Provider Mr. Jett is a pleasant 88yo male with history of atrial fibrillation on Eliquis anticoagulation, TIA on Plavix, PAD, HTN. He was recently admitted for treatment of cellulitis. Patient presents today with nausea and vomiting - approximately 6 episodes throughout the day. No bright red reported but there was some concern for coffee ground material. Last episode of emesis at 17:00. Patient also with dark stools. He reports that he has been needing oxygen at [facility] over the last week which is new. Patient denies abdominal pain. Denies hematemesis or hematochezia. Is unsure if his vomitus was coffee ground or if his stools have been black. Patient does not smoke, drink or take NSAIDS. Upon arrival to the ER he was found to be afebrile, BP slightly low at 97/50. Labs revealed Hg=7.6, Hct=24.6. FOBT+ ER Course: Protonix gtt, 2U PRBCs Principal Diagnosis Slow Upper GI BLEED Discharge Exam General: patient resting comfortably, NAD, non-toxic in appearance, AA&O x 4 Skin: warm, dry, intact, no rashes or lesions HEENT: NC/AT, PERRL, EOMI, anicteric sclera, conjunctiva without injection, external ear normal to inspection and nontender, nares patent, moist mucus membranes, poor dentition, no oropharyngeal lesions, neck supple, trachea midline, no LAD, no thyromegaly, no JVD Heart: +S1/S2, irregularly irregular, no m/r/g Lungs: equal air entry bilaterally, no rales/rhonchi/wheezes Abd: +BS, soft, NT/ND, no masses/organomegaly/ascites Ext: warm, 2+ pulses in UE/LE bilaterally, no clubbing/cyanosis or edema Neuro: nonfocal, patient AA&O x 4, speech intact, no facial droop, moving all extremities on command with equal strength 5/5 Discharge Data Allergies Allergy/AdvReac Type Severity Reaction Status Date / Time celecoxib Allergy Unknown Verified 10/05/18 16:20 Bactrim AdvReac Intermediate DYSPEPSIA Verified 03/05/18 14:22 cephalexin AdvReac Intermediate DYSPEPSIA Verified 10/05/18 16:20 esomeprazole AdvReac Intermediate GI SYMPTOMS Verified 10/05/18 16:20 naproxen AdvReac Intermediate DYSPEPSIA Verified 10/05/18 16:20 NSAIDS (Non-Steroidal AdvReac Intermediate esaphogeal Verified 10/05/18 16:20 Anti-Inflamma lesions sulfamethoxazole AdvReac Intermediate DYSPEPSIA Verified 10/05/18 16:20 trimethoprim AdvReac Intermediate DYSPEPSIA Verified 10/05/18 16:20 Cephalosporins AdvReac Mild NAUSEA Verified 10/05/18 16:20 Consultations 10/27/18 19:51 ED Decision to Admit Stat 10/27/18 23:23 Consult Gastroenterology Routine Hospital Course (1) GI bleed: Admission orders Possible coffee ground emesis, dark stools hemoccult positive. Normochromic/ normocytic anemia on presentation. Patient with slightly low blood pressure initially which improved with IVF and PRBCs. -Admit to PCU -NPO -Hold Plavix and Eliquis -Maintain 2 large PIVs -Patient received 2 PRBCs -hemoglobin increased to 10. Will continue to rend CBC -will continue Protonicx 40 mg IV BID. Patient is currently refusing upper endoscopy. -GI consultation - appreciate assistance with this case Explained that this is likely a slow upper GI bleed. On day of discharge: patient hemoglobin has stabilized. Patient continues to refuse upper endoscopy. In light of no further intervention, patient can go home. Discussed risk with son, who agrees as patient does not want upper endoscopy. Informed of risk of stopping his eliquis. He is at risk of clots. But continuing this puts him at risk of bleeding. Will restart plavix for the meantime. Will defer to pcp if patient can resume eliquis. patient will f/u with [facility]PAT[facility], and PCP. (2) Atrial fibrillation: Rate controlled. Patient anticoagulated on Eliquis. Was on Coumadin until last month. -Hold eliquis in setting of suspected bleed (3) Anemia: Patient with normochromic/normocytic anemia - appears to be decreasing H/ H over the last year. I don't see prior iron studies - will not send now as patient has been transfused. O62=257 and Folate=8.8 during prior admissions -S/p 2u PRBCs -Monitor CBC q 8 hours -Improved to 10, trended down to 9.6 On day of discharge hemglobin was 9.9 (4) TIA (transient ischemic attack): Remote history of TIA -Hold Plavix (5) Reflux: Protonix BID as above (6) Hyperlipidemia LDL goal <70: Continue Atorvastatin (7) Hypertension: Hold Lisinopril in settin g of GIB, borderline low blood pressure on arrival Ppx - Protonix Code - DNR Dispo - PCU \ Total Time Total Time Spent Total Time Spent (In Minutes): 40 Total Time Includes: Examination of the Patient, Discharge Planning and Medication Reconciliation Discharge Plan Discharge Items Patient Disposition[facility] Reason For Visit: GIB Discharge Diagnosis: GI bleed Condition: Fair Discharge Goals: Decrease discomfort and Improve function Activity: Resume your previous activity Non-emergency contact: Primary Care Provider and Specialist Call non-emergency contact if: you have any medication questions Diet: Heart Healthy Addtl Provider Instructions: Recheck CBC on Wednesday and Wednesday. Send results to PCP. Will hold eliquis for now due to risk of bleeding. Will defer to PCP for restarting medicne. Explained risk to patient who shows understanding. Prescriptions: Continue lisinopril 5 mg tablet 5 mg PO QAM RF: 0 melatonin 3 mg tablet 3 mg PO HS RF: 0 potassium chloride 10 mEq capsule, extended release 10 meq PO QAM RF: 0 sennosides [Senna Lax] 8.6 mg tablet 8.6 mg PO Q12H PRN (Reason: Constipation) RF: 0 acetaminophen [Tylenol] 325 mg tablet 650 mg PO Q4H PRN (Reason: PAIN/ELEVATED TEMP) RF: 0 cholecalciferol (vitamin D3) 2,000 unit capsule 2,000 units PO QAM RF: 0 atorvastatin 10 mg tablet 10 mg PO QAM RF: 0 dutasteride [Avodart] 0.5 mg capsule 0.5 mg PO QAM RF: 0 clopidogrel 75 mg tablet 75 mg PO Q2D RF: 0 torsemide 20 mg tablet 20 mg PO QAM PRN (Reason: Edema) RF: 0 magnesium hydroxide [Milk of Magnesia] 400 mg/5 mL Suspension 30 ml PO Q48H PRN (Reason: Constipation) RF: 0 bisacodyl [Dulcolax (bisacodyl)] 10 mg Suppository 10 mg OR Q48H PRN (Reason: Constipation) RF: 0 calcium carbonate [Tums] 200 mg calcium (500 mg) Tablet,Chewable 500 mg PO Q6H PRN (Reason: Dyspepsia) RF: 0 sodium phosphates [Fleet Enema] 19-7 gram/118 mL Enema 1 ea OR Q72H PRN (Reason: Constipation) RF: 0 sertraline 50 mg Tablet 50 mg PO QAM RF: 0 white petrolatum [Vaseline] Gel 1 applic topical HS RF: 0 carboxymethylcellulose sodium [Lubricating Plus] 0.5 % Dropperette 2 drp OPB QID RF: 0 sodium chloride [Saline Nasal] 0.65 % Aerosol,[place] 2 spray INTRANASAL QID RF: 0 Changed pantoprazole [Protonix] 40 mg Tablet,Delayed Release (Dr/Ec) 40 mg PO BID Qty: 0 RF: 0 Discontinued apixaban [Eliquis] 5 mg Tablet 5 mg PO BID 30 Days Qty: 60 RF: 0 Stand-Alone Forms: [facility] Discharge Orders: Discharge Order (Routine); Ordered 10/29/18 Ordered By: Ced Lorenzo Skilled Items Patient informed of condition?: Yes DNR: Yes Discharge Level of Care: Skilled Communicable Disease: No Discharge Prognosis: Improving Admission Data Admit Date/Time: 10/27/18 21:36 Attending Provider: Ced Lorenzo Admit Provider: Perla Peralta Primary Care Provider: Reji Li Other Providers: Perla Peralta ; Tobin Ferreira ; Norma Leonard Kayla Service: Telemetry Other Interventions: Discharge Summary Assessment (RN) Last Done: 10/29/18 12:43 DC Date/Time DO NOT enter until pt leaves facility: 10/29/18 13:22
== END 2018-10-29 13:22 | DRG 379 ==
LOC: ED 18:36 → 2S 21:36 → SUATTDRO 21:36 → 2S 22:56